=== PATIENT | male | born 1950 | race Caucasian/White ===

== ENCOUNTER → 2020-01-20 08:05 | Outpatient (BNVA) | payer MEDICARE, SELFPAY | PROVIDERS: PCP Internal Medicine; Visit Provider Internal Medicine | DX: I82.409 Acute embolism and thrombosis of unspecified deep veins of unspecified lower extremity (principal); Z51.81 Encounter for therapeutic drug level monitoring; Z79.01 Long term (current) use of anticoagulants | CPT/HCPCS: 85610; 99211 ==

== ENCOUNTER → 2020-02-17 08:04 | Outpatient (BNVA) | payer MEDICARE, SELFPAY | PROVIDERS: PCP Internal Medicine; Visit Provider Internal Medicine | DX: Z86.718 Personal history of other venous thrombosis and embolism (principal); Z51.81 Encounter for therapeutic drug level monitoring; Z79.01 Long term (current) use of anticoagulants | CPT/HCPCS: 85610; 99211 ==

== ENCOUNTER → 2020-03-16 08:05 | Outpatient (BNVA) | payer MEDICARE, SELFPAY | PROVIDERS: PCP Internal Medicine; Visit Provider Internal Medicine | DX: Z86.718 Personal history of other venous thrombosis and embolism (principal); Z51.81 Encounter for therapeutic drug level monitoring; Z79.01 Long term (current) use of anticoagulants | CPT/HCPCS: 85610; 99211 ==

== ENCOUNTER → 2020-04-13 08:11 | Outpatient (BNVA) | payer MEDICARE, SELFPAY | PROVIDERS: PCP Internal Medicine; Visit Provider Internal Medicine | DX: I82.509 Chronic embolism and thrombosis of unspecified deep veins of unspecified lower extremity (principal); Z51.81 Encounter for therapeutic drug level monitoring; Z79.01 Long term (current) use of anticoagulants | CPT/HCPCS: 85610; 99211 ==

== ENCOUNTER → 2020-05-12 08:13 | Outpatient (BNVA) | payer MEDICARE, SELFPAY | PROVIDERS: PCP Internal Medicine; Visit Provider Internal Medicine | DX: Z86.718 Personal history of other venous thrombosis and embolism (principal); Z51.81 Encounter for therapeutic drug level monitoring; Z79.01 Long term (current) use of anticoagulants | CPT/HCPCS: 85610; 99211 ==

== ENCOUNTER → 2020-06-08 08:00 | Outpatient (BNVA) | payer MEDICARE, SELFPAY | PROVIDERS: PCP Internal Medicine; Visit Provider Internal Medicine | DX: I82.509 Chronic embolism and thrombosis of unspecified deep veins of unspecified lower extremity (principal); Z51.81 Encounter for therapeutic drug level monitoring; Z79.01 Long term (current) use of anticoagulants | CPT/HCPCS: 85610; 99211 ==

== ENCOUNTER → 2020-06-30 08:04 | Outpatient (BNVA) | payer MEDICARE, SELFPAY | PROVIDERS: PCP Internal Medicine; Visit Provider Internal Medicine | DX: Z86.718 Personal history of other venous thrombosis and embolism (principal); Z51.81 Encounter for therapeutic drug level monitoring; Z79.01 Long term (current) use of anticoagulants | CPT/HCPCS: 85610; 99211 ==

== ENCOUNTER → 2020-07-22 15:27 | Outpatient (BNVA) | payer MEDICARE, SELFPAY | PROVIDERS: PCP Internal Medicine; Visit Provider Student in an Organized Health Care Education/Training Program | DX: M19.041 Primary osteoarthritis, right hand (principal); M19.042 Primary osteoarthritis, left hand; Z79.01 Long term (current) use of anticoagulants | CPT/HCPCS: 99212 ==

== ENCOUNTER → 2020-07-28 08:01 | Outpatient (BNVA) | payer MEDICARE, SELFPAY | PROVIDERS: PCP Internal Medicine; Visit Provider Internal Medicine | DX: Z86.718 Personal history of other venous thrombosis and embolism (principal); Z79.01 Long term (current) use of anticoagulants; Z51.81 Encounter for therapeutic drug level monitoring | CPT/HCPCS: 85610; 99211 ==

== ENCOUNTER → 2020-08-25 08:01 | Outpatient (BNVA) | payer MEDICARE, SELFPAY | PROVIDERS: PCP Internal Medicine; Visit Provider Internal Medicine | DX: Z86.718 Personal history of other venous thrombosis and embolism (principal); Z51.81 Encounter for therapeutic drug level monitoring; Z79.01 Long term (current) use of anticoagulants | CPT/HCPCS: 85610; 99211 ==

== ENCOUNTER 2020-09-22 08:03 | Outpatient (REF) | payer MEDICARE, SELFPAY ==
[2020-09-22 09:57] LABS: MANUAL DIFF FLAG NO
[2020-09-22 10:06] LABS: Basophils Percent Auto 0.4 % (0-2); Eosinophils Absolute Auto 0.2 X10*3/uL (0.0-0.4); Eosinophils Percent Auto 2.4 % (0-4); Hematocrit 42.2 % (42-52); Hemoglobin 13.3 g/dl (14.0-18.0); Imm Gran Abs Auto 0.04 X10*3/uL (0.00-0.03); Imm Gran Pct Auto 0.5 % (0.0-0.4); Lymphocytes Absolute Auto 1.1 X10*3/uL (1.2-4.9); Lymphocytes Percent Auto 15.1 % (20-40); Mean Corpuscular HGB Conc 31.5 g/dl (31.0-36.0); Mean Corpuscular Hemoglobin 29.5 pg (27.0-33.0); Mean Corpuscular Volume 93.6 fL (80-98); Mean Platelet Volume 10.3 fL (9.4-12.4); Monocytes Absolute Auto 0.9 X10*3/uL (0.1-1.2); Monocytes Percent Auto 12.4 % (2-11); Neutrophils Absolute Auto 5.2 X10*3/uL (2.0-8.3); Neutrophils Percent Auto 69.2 % (45-73); Platelet Count 197 X10*3/uL (160-400); Red Blood Count 4.51 X10*6/uL (4.60-5.80); Red Cell Distribution Width 14.6 % (11.0-16.0); White Blood Count 7.5 X10*3/uL (4.8-10.8)
[2020-09-22 10:37] LABS: Albumin Level 4.1 g/dL (3.5-5.0); Anion Gap 16 (12-20); Blood Urea Nitrogen 31 mg/dL (9-16); Calcium 9.2 mg/dL (8.4-10.2); Carbon Dioxide 20 mmol/L (22-29); Chloride 113 mmol/L (96-108); Estimated Glomerular Filt Rate 34; Phosphorus 2.7 mg/dL (2.7-4.5); Potassium 5.7 mmol/L (3.3-5.1); Sodium 143 mmol/L (135-145)
== END 2020-09-22 08:04 | disposition home or self-care (01) ==
LOC: HO.LAB 08:03
PROVIDERS: Absent Provider Internal Medicine; PCP Internal Medicine; Referring Provider Internal Medicine Hypertension Specialist; Visit Provider Internal Medicine
DX: I82.409 Acute embolism and thrombosis of unspecified deep veins of unspecified lower extremity (principal); N18.30 Chronic kidney disease, stage 3 unspecified; E21.3 Hyperparathyroidism, unspecified; Z51.81 Encounter for therapeutic drug level monitoring; Z79.01 Long term (current) use of anticoagulants
CPT/HCPCS: 36415; 80051; 82040; 82310; 82565; 83735; 84100; 84520; 85025; 85610; 99211

== ENCOUNTER → 2020-10-20 08:00 | Outpatient (BNVA) | payer MEDICARE, SELFPAY | PROVIDERS: PCP Internal Medicine; Visit Provider Internal Medicine | DX: Z86.718 Personal history of other venous thrombosis and embolism (principal); Z51.81 Encounter for therapeutic drug level monitoring; Z79.01 Long term (current) use of anticoagulants | CPT/HCPCS: 85610; 99211 ==

== ENCOUNTER → 2020-11-17 08:02 | Outpatient (BNVA) | payer MEDICARE, SELFPAY | PROVIDERS: PCP Internal Medicine; Visit Provider Internal Medicine | DX: Z86.718 Personal history of other venous thrombosis and embolism (principal); Z51.81 Encounter for therapeutic drug level monitoring; Z79.01 Long term (current) use of anticoagulants | CPT/HCPCS: 85610; 99211 ==

== ENCOUNTER → 2020-12-15 08:00 | Outpatient (BNVA) | payer MEDICARE, SELFPAY | PROVIDERS: PCP Internal Medicine; Visit Provider Internal Medicine | DX: Z86.718 Personal history of other venous thrombosis and embolism (principal); Z51.81 Encounter for therapeutic drug level monitoring; Z79.01 Long term (current) use of anticoagulants | CPT/HCPCS: 85610; 99211 ==

== ENCOUNTER → 2021-01-12 08:02 | Outpatient (BNVA) | payer MEDICARE, SELFPAY | PROVIDERS: PCP Internal Medicine; Visit Provider Internal Medicine | DX: Z86.718 Personal history of other venous thrombosis and embolism (principal); Z51.81 Encounter for therapeutic drug level monitoring; Z79.01 Long term (current) use of anticoagulants | CPT/HCPCS: 85610; 99211 ==

== ENCOUNTER 2021-02-09 06:45 | Outpatient (REF) | payer MEDICARE, SELFPAY ==
[2021-02-09 06:56] LABS: MANUAL DIFF FLAG NO
[2021-02-09 07:21] LABS: Basophils Percent Auto 0.4 % (0-2); Eosinophils Absolute Auto 0.2 X10*3/uL (0.0-0.4); Eosinophils Percent Auto 2.8 % (0-4); Hematocrit 41.1 % (42.0-52.0); Hemoglobin 12.8 g/dl (14.0-18.0); Imm Gran Abs Auto 0.02 X10*3/uL (0.00-0.03); Imm Gran Pct Auto 0.3 % (0.0-0.4); Immature Retic Fraction 6.4 % (2.3-13.4); Lymphocytes Absolute Auto 1.7 X10*3/uL (1.2-4.9); Mean Corpuscular HGB Conc 31.1 g/dl (31.0-36.0); Mean Corpuscular Hemoglobin 28.8 pg (27.0-33.0); Mean Corpuscular Volume 92.6 fL (80.0-98.0); Mean Platelet Volume 10.1 fL (9.4-12.4); Monocytes Absolute Auto 0.8 X10*3/uL (0.1-1.2); Monocytes Percent Auto 11.3 % (2-11); Neutrophils Absolute Auto 4.06 x10*3/uL (2.0-8.3); Neutrophils Percent Auto 60.2 % (45-73); Platelet Count 214 X10*3/uL (160-400); Red Blood Count 4.44 X10*6/uL (4.60-5.80); Retic HGB Equivalent 32.3 pg (30.0-35.0); Reticulocyte Percent 0.8 % (0.5-1.8); Reticulocytes Absolute 0.034 X10*6/uL (0.026-0.095); White Blood Count 6.8 X10*3/uL (4.8-10.8)
[2021-02-09 08:14] LABS: Alanine Aminotransferase 13 U/L (0-40); Alkaline Phosphatase 109 U/L (39-117); Anion Gap 14 (12-20); Aspartate Amino Transferase 18 U/L (5-37); Bilirubin Total 0.6 mg/dL (0.0-1.0); Blood Urea Nitrogen 34 mg/dL (9-16); Carbon Dioxide 22 mmol/L (22-29); Chloride 111 mmol/L (96-108); Cholesterol 178 mg/dL; Estimated Glomerular Filt Rate 31; Glucose Random 110 mg/dL (60-115); HDL Cholesterol 49 mg/dL; LDL Cholesterol Calculated 117 mg/dl; Sodium 142 mmol/L (135-145); Total Protein 7.4 g/dL (6.5-8.0); Triglycerides 63 mg/dL; Unsaturated Iron Binding 210 ug/dL; Uric Acid 10.6 mg/dL (3.4-7.0)
[2021-02-09 08:16] LABS: Estimated Average Glucose 111 mg/dL; Hemoglobin A1c % 5.5 %
[2021-02-09 08:27] LABS: Iron 68 mcg/dL (45-160); Percent Iron Saturation 24 % (15-50); Total Iron Binding Capacity 278 mcg/dL (228-428)
[2021-02-09 08:34] LABS: Prostate Specific Antigen Scr 1.32 ng/mL (<0.05-4.0)
[2021-02-09 08:55] LABS: Free T4 (Free Thyroxine) 1.19 ng/dL (0.71-1.85); Thyroid Stimulating Hormone 2.48 uIU/mL (0.32-4.0)
[2021-02-09 09:45] LABS: Folate 5.8 ng/mL (> or = 4.0); Vitamin B12 338 pg/mL (200-900)
[2021-02-09 09:57] LABS: Ferritin 299 ng/mL (20-250)
== END 2021-02-09 06:46 | disposition home or self-care (01) ==
LOC: HO.LAB 06:45
PROVIDERS: PCP Internal Medicine; Visit Provider Internal Medicine
DX: K22.70 Barrett's esophagus without dysplasia (principal); E87.5 Hyperkalemia; I12.9 Hypertensive chronic kidney disease with stage 1 through stage 4 chronic kidney disease, or unspecified chronic kidney disease; N18.32 Chronic kidney disease, stage 3b; E78.00 Pure hypercholesterolemia, unspecified; Z86.718 Personal history of other venous thrombosis and embolism; Z51.81 Encounter for therapeutic drug level monitoring; Z79.01 Long term (current) use of anticoagulants; Z12.5 Encounter for screening for malignant neoplasm of prostate
CPT/HCPCS: 36415; 80053; 80061; 82607; 82728; 82746; 83036; 83540; 84153; 84439; 84443; 84550; 85025; 85045; 85610; 99211

== ENCOUNTER → 2021-03-09 08:04 | Outpatient (BNVA) | payer MEDICARE, SELFPAY | PROVIDERS: PCP Internal Medicine; Visit Provider Internal Medicine | DX: Z86.718 Personal history of other venous thrombosis and embolism (principal); Z51.81 Encounter for therapeutic drug level monitoring; Z79.01 Long term (current) use of anticoagulants | CPT/HCPCS: 85610; 99211 ==

== ENCOUNTER → 2021-04-06 08:02 | Outpatient (BNVA) | payer MEDICARE, SELFPAY | PROVIDERS: PCP Internal Medicine; Visit Provider Internal Medicine | DX: I82.509 Chronic embolism and thrombosis of unspecified deep veins of unspecified lower extremity (principal); Z51.81 Encounter for therapeutic drug level monitoring; Z79.01 Long term (current) use of anticoagulants | CPT/HCPCS: 85610; 99211 ==

== ENCOUNTER → 2021-05-04 08:02 | Outpatient (BNVA) | payer MEDICARE, SELFPAY | PROVIDERS: PCP Internal Medicine; Visit Provider Internal Medicine | DX: Z86.718 Personal history of other venous thrombosis and embolism (principal); Z51.81 Encounter for therapeutic drug level monitoring; Z79.01 Long term (current) use of anticoagulants | CPT/HCPCS: 85610; 99211 ==

== ENCOUNTER → 2021-06-01 07:58 | Outpatient (BNVA) | payer MEDICARE, SELFPAY | PROVIDERS: PCP Internal Medicine; Visit Provider Internal Medicine | DX: Z86.718 Personal history of other venous thrombosis and embolism (principal); Z51.81 Encounter for therapeutic drug level monitoring; Z79.01 Long term (current) use of anticoagulants | CPT/HCPCS: 85610; 99211 ==

== ENCOUNTER 2021-06-29 08:03 | Outpatient (REF) | payer MEDICARE, SELFPAY ==
[2021-06-29 09:23] LABS: Hematocrit 40.5 % (42.0-52.0); Hemoglobin 12.5 g/dl (14.0-18.0); Mean Corpuscular HGB Conc 30.9 g/dl (31.0-36.0); Mean Corpuscular Hemoglobin 28.9 pg (27.0-33.0); Mean Corpuscular Volume 93.5 fL (80.0-98.0); Mean Platelet Volume 10.2 fL (9.4-12.4); Platelet Count 191 X10*3/uL (160-400); Red Blood Count 4.33 X10*6/uL (4.60-5.80); Red Cell Distribution Width 14.5 % (11.0-16.0); White Blood Count 6.2 X10*3/uL (4.8-10.8)
[2021-06-29 10:30] LABS: Anion Gap 14 (12-20); Blood Urea Nitrogen 33 mg/dL (9-16); Calcium 9.5 mg/dL (8.4-10.2); Carbon Dioxide 20 mmol/L (22-29); Chloride 109 mmol/L (96-108); Estimated Glomerular Filt Rate 32; Glucose Random 103 mg/dL (60-115); Potassium 5.3 mmol/L (3.3-5.1); Sodium 138 mmol/L (135-145)
[2021-06-29 12:16] LABS: Creatinine Urine 92.71 mg/dL; Protein/Creatinine Ratio, Ur 0.31 (<0.2); Total Protein Urine Random 29 mg/dL (<12)
[2021-06-30 15:45] LABS: Calcium (PTHI) 9.2 mg/dL (8.6-10.3); PTHI 187 pg/mL (16-77)
== END 2021-06-29 08:04 | disposition home or self-care (01) ==
LOC: HO.LAB 08:03
PROVIDERS: Absent Provider Internal Medicine Hypertension Specialist; PCP Internal Medicine; Visit Provider Internal Medicine
DX: I82.509 Chronic embolism and thrombosis of unspecified deep veins of unspecified lower extremity (principal); Z51.81 Encounter for therapeutic drug level monitoring; Z79.01 Long term (current) use of anticoagulants
CPT/HCPCS: 36415; 80048; 83970; 84156; 85027; 85610; 99211

== ENCOUNTER → 2021-07-27 08:00 | Outpatient (BNVA) | payer MEDICARE, SELFPAY | PROVIDERS: PCP Internal Medicine; Visit Provider Internal Medicine | DX: Z86.718 Personal history of other venous thrombosis and embolism (principal); Z79.01 Long term (current) use of anticoagulants; Z51.81 Encounter for therapeutic drug level monitoring | CPT/HCPCS: 85610; 99211 ==

== ENCOUNTER → 2021-08-24 08:02 | Outpatient (BNVA) | payer MEDICARE, SELFPAY | PROVIDERS: PCP Internal Medicine; Visit Provider Internal Medicine | DX: Z86.718 Personal history of other venous thrombosis and embolism (principal); Z79.01 Long term (current) use of anticoagulants; Z51.81 Encounter for therapeutic drug level monitoring | CPT/HCPCS: 85610; 99211 ==

== ENCOUNTER → 2021-09-01 12:28 | Outpatient (BNVA) | payer MEDICARE, SELFPAY | PROVIDERS: PCP Internal Medicine; Visit Provider Nurse Practitioner Family | DX: M19.041 Primary osteoarthritis, right hand (principal); M19.042 Primary osteoarthritis, left hand | CPT/HCPCS: 99212 ==

== ENCOUNTER → 2021-09-07 08:03 | Outpatient (BNVA) | payer MEDICARE, SELFPAY | PROVIDERS: PCP Internal Medicine; Visit Provider Internal Medicine | DX: Z86.718 Personal history of other venous thrombosis and embolism (principal); Z79.01 Long term (current) use of anticoagulants; Z51.81 Encounter for therapeutic drug level monitoring | CPT/HCPCS: 85610; 99211 ==

== ENCOUNTER → 2021-10-05 08:03 | Outpatient (BNVA) | payer MEDICARE, SELFPAY | PROVIDERS: PCP Internal Medicine; Visit Provider Internal Medicine | DX: Z86.718 Personal history of other venous thrombosis and embolism (principal); Z51.81 Encounter for therapeutic drug level monitoring; Z79.01 Long term (current) use of anticoagulants | CPT/HCPCS: 85610; 99211 ==

== ENCOUNTER → 2021-10-18 11:24 | Outpatient (BNVA) | payer MEDICARE, SELFPAY | PROVIDERS: PCP Internal Medicine; Visit Provider Nurse Practitioner Family | DX: M79.642 Pain in left hand (principal); M25.532 Pain in left wrist; M79.641 Pain in right hand; M25.521 Pain in right elbow; M25.522 Pain in left elbow; M25.531 Pain in right wrist | CPT/HCPCS: 99212 ==

== ENCOUNTER 2021-10-19 08:00 | Outpatient (REF) | payer MEDICARE, SELFPAY ==
--- NOTE | ~2021-10-19 | XR_ITS ---
EXAMINATION: XR ELBOW, LEFT CLINICAL INFORMATION: Pain. COMPARISON: None TECHNIQUE: AP, lateral, and oblique views of the left elbow. FINDINGS: Bony alignment and mineralization are normal. No fracture, dislocation or elbow joint effusion is seen. There is olecranon bursitis, and there are are small ovoid, calcified loose bodies noted within the olecranon bursa, suggesting synovial chondromatosis. There is no soft tissue gas or foreign body. There are atherosclerotic calcifications. XR/XR elbow LT 2V IMPRESSION: 1. No left elbow fracture, dislocation or joint effusion is seen. 2. 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
--- NOTE | ~2021-10-19 | XR_ITS ---
EXAMINATION: XR ELBOW, RIGHT CLINICAL INFORMATION: Pain. COMPARISON: None TECHNIQUE: AP, lateral, and oblique views of the right elbow. FINDINGS: The bones and soft tissues are normal. No fracture or joint effusion. Small enthesophytes are incidentally noted of the bilateral humeral epicondyles and the olecranon process. Alignment is anatomic. Joint spaces are maintained. XR/XR elbow RT 2V IMPRESSION: Unremarkable right elbow.
--- NOTE | ~2021-10-19 | XR_ITS ---
EXAMINATION: XR HAND AND WRIST, RIGHT CLINICAL INFORMATION: Chronic pain. COMPARISON: Radiographs dated 10/13/2019. TECHNIQUE: PA, lateral, and oblique views of the right hand and wrist are performed, together with a dedicated navicular view. FINDINGS: There is mild bony demineralization. There are multi-focal osteoarthritic changes of the second through fifth distal interphalangeal joints and of the second, fourth and fifth proximal interphalangeal joints. There are are degenerative changes of the first through third and fifth metacarpophalangeal joints. No fracture or dislocation is seen. There are curvilinear metallic foreign bodies again seen dorsolateral to the distal second metacarpal shaft. A tiny ovoid metallic foreign body is seen lateral to the second distal interphalangeal joint. No abnormal bone erosion or periosteal thickening is seen. The proximal and distal carpal rows are intact. There is moderate to severe osteoarthritic change of the right first carpometacarpal joint. There is narrowing of the radiocarpal joint. There is osteoarthritic change of the distal articulation of the radius and ulna. There are atherosclerotic calcifications. XR/XR hand wrist LT IMPRESSION: There are stable, moderately severe osteoarthritic changes of the right hand and wrist. These are again most severe of the third through fifth distal interphalangeal joints and of the fifth proximal interphalangeal joint, with possible bony ankylosis again noted. Overall, the appearance is relatively stable to prior. Radiopaque foreign bodies are again seen. EXAMINATION: XR HAND AND WRIST, LEFT CLINICAL INFORMATION: Chronic pain. COMPARISON: None TECHNIQUE: PA, lateral, and oblique views of the left hand and wrist are performed, together with a dedicated navicular view. FINDINGS: There is bony demineralization. There is mild osteoarthritic change of the interphalangeal joint of the thumb. There are multi-focal osteoarthritic changes of the second through fifth distal interphalangeal joints and of the second, third and fifth proximal interphalangeal joints. These changes are most pronounced of the second distal interphalangeal joint and of the fifth proximal and distal interphalangeal joints. There are variable degenerative changes of the second through fifth metacarpophalangeal joints. No fracture or dislocation is seen. There is no abnormal bone erosion or periosteal thickening. The proximal and distal carpal rows are intact. There is mild osteoarthritic change of the first carpometacarpal joint. There is degenerative change of the radiocarpal joint. There are atherosclerotic calcifications. IMPRESSION: There are stable, moderately severe osteoarthritic changes of the left hand and wrist. Again, these are most severe of the second and fifth digits. No fracture or dislocation is seen.
[2021-10-19 09:11] LABS: MANUAL DIFF FLAG NO
[2021-10-19 10:29] LABS: Basophils Percent Auto 0.7 % (0-2); Eosinophils Absolute Auto 0.1 X10*3/uL (0.0-0.4); Eosinophils Percent Auto 1.8 % (0-4); Hematocrit 37.3 % (42.0-52.0); Hemoglobin 11.9 g/dl (14.0-18.0); Imm Gran Abs Auto 0.02 X10*3/uL (0.00-0.03); Imm Gran Pct Auto 0.3 % (0.0-0.4); Lymphocytes Absolute Auto 1.4 X10*3/uL (1.2-4.9); Lymphocytes Percent Auto 23.8 % (20-40); Mean Corpuscular HGB Conc 31.9 g/dl (31.0-36.0); Mean Corpuscular Hemoglobin 28.7 pg (27.0-33.0); Mean Corpuscular Volume 89.9 fL (80.0-98.0); Mean Platelet Volume 10.2 fL (9.4-12.4); Monocytes Absolute Auto 0.7 X10*3/uL (0.1-1.2); Monocytes Percent Auto 11.4 % (2-11); Neutrophils Absolute Auto 3.8 x10*3/uL (2.0-8.3); Platelet Count 219 X10*3/uL (160-400); Red Blood Count 4.15 X10*6/uL (4.60-5.80); Red Cell Distribution Width 14.5 % (11.0-16.0); White Blood Count 6.1 X10*3/uL (4.8-10.8)
[2021-10-19 10:57] LABS: Estimated Average Glucose 114 mg/dL; Hemoglobin A1c % 5.6 %
[2021-10-19 11:06] LABS: Uric Acid 10.2 mg/dL (3.4-7.0)
[2021-10-19 11:15] LABS: Alanine Aminotransferase 11 U/L (0-40); Aspartate Amino Transferase 14 U/L (5-37); C Reactive Protein 0.92 mg/dL (< or = 0.50); Estimated Glomerular Filt Rate 27
[2021-10-19 11:25] LABS: Erythrocyte Sedimentation Rate 81 MM/HR (0-15)
[2021-10-19 11:35] LABS: Free T4 (Free Thyroxine) 1.02 ng/dL (0.71-1.85); Prostate Specific Antigen Scr 3.51 ng/mL (<0.05-4.0)
[2021-10-19 12:11] LABS: Folate 6.6 ng/mL (> or = 4.0); Vitamin B12 400 pg/mL (200-900)
== END 2021-10-19 08:01 | disposition home or self-care (01) ==
LOC: HO.XRAY 08:00
PROVIDERS: Absent Provider Nurse Practitioner Family; PCP Internal Medicine; Visit Provider Internal Medicine
DX: M25.521 Pain in right elbow (principal); M25.50 Pain in unspecified joint; M25.522 Pain in left elbow; M25.532 Pain in left wrist; E87.5 Hyperkalemia; Z79.899 Other long term (current) drug therapy; Z12.5 Encounter for screening for malignant neoplasm of prostate; Z86.718 Personal history of other venous thrombosis and embolism; Z51.81 Encounter for therapeutic drug level monitoring; Z79.01 Long term (current) use of anticoagulants
CPT/HCPCS: 36415; 73070; 73110; 73130; 82565; 82607; 82746; 83036; 84153; 84439; 84450; 84460; 84550; 85025; 85610; 85652; 86140; 99211

== ENCOUNTER → 2021-11-02 08:04 | Outpatient (BNVA) | payer MEDICARE, SELFPAY | PROVIDERS: PCP Internal Medicine; Visit Provider Internal Medicine | DX: Z86.718 Personal history of other venous thrombosis and embolism (principal); Z79.01 Long term (current) use of anticoagulants; Z51.81 Encounter for therapeutic drug level monitoring | CPT/HCPCS: 85610; 99211 ==

== ENCOUNTER → 2021-11-06 12:43 | Outpatient (BNVA) | payer MEDICARE, SELFPAY | PROVIDERS: PCP Internal Medicine; Visit Provider Nurse Practitioner Family | DX: M10.9 Gout, unspecified (principal); M25.532 Pain in left wrist | CPT/HCPCS: 99212 ==

== ENCOUNTER → 2021-11-30 08:01 | Outpatient (BNVA) | payer MEDICARE, SELFPAY | PROVIDERS: PCP Internal Medicine; Visit Provider Internal Medicine | DX: Z86.718 Personal history of other venous thrombosis and embolism (principal); Z79.01 Long term (current) use of anticoagulants; Z51.81 Encounter for therapeutic drug level monitoring | CPT/HCPCS: 85610; 99211 ==

== ENCOUNTER → 2021-12-14 08:01 | Outpatient (BNVA) | payer MEDICARE, SELFPAY | PROVIDERS: PCP Internal Medicine; Visit Provider Internal Medicine | DX: Z86.718 Personal history of other venous thrombosis and embolism (principal); Z51.81 Encounter for therapeutic drug level monitoring; Z79.01 Long term (current) use of anticoagulants | CPT/HCPCS: 85610; 99211 ==

== ENCOUNTER → 2021-12-28 08:02 | Outpatient (BNVA) | payer MEDICARE, SELFPAY | PROVIDERS: PCP Internal Medicine; Visit Provider Internal Medicine | DX: Z86.718 Personal history of other venous thrombosis and embolism (principal); Z79.01 Long term (current) use of anticoagulants; Z51.81 Encounter for therapeutic drug level monitoring | CPT/HCPCS: 85610; 99211 ==

== ENCOUNTER → 2022-01-03 08:16 | Outpatient (BNVA) | payer MEDICARE, SELFPAY | PROVIDERS: PCP Internal Medicine; Visit Provider Internal Medicine | DX: Z86.718 Personal history of other venous thrombosis and embolism (principal); Z79.01 Long term (current) use of anticoagulants; Z51.81 Encounter for therapeutic drug level monitoring | CPT/HCPCS: 85610; 99211 ==

== ENCOUNTER 2022-01-08 07:24 | Day surgery (SDC) | payer MEDICARE, SELFPAY ==
[2022-01-03 09:09] VITALS: BMI 30.1
--- NOTE | 2022-01-05 13:06 | P.CONAN_ITS ---
Documented by User: Latisha Kilgore NP 01/05/22 13:18 HPI - Anesthesia Eval Consult details Narrative: 71yo M for Upper Endoscopy and Colonoscopy CKD stage 3 - per 10/2021 renal note, CKD d/t htn, reat increased to 2.8 likely d/t natural progression Coumadin for hx DVT PMFSH Active Problems Active Problems: All Active Problems (Updated 11/06/21 @ 23:32 by Emma Mckeon NP) DVT (deep venous thrombosis) (Acute) Current use of anticoagulant therapy (Acute) Peripheral vascular disease (Acute) Hyperkalemia (Acute) Colon cancer screening (Acute) Annual physical exam (Acute) Osteoarthritis, hand (Acute) Gout (Acute) Anticardiolipin antibody positive (Acute) Tobacco abuse (Acute) GERD (gastroesophageal reflux disease) (Acute) Obesity (BMI 30-39.9) (Acute) Chronic kidney disease (CKD) stage G3b/A1, moderately decreased glomerular filtration rate (GFR) between 30-44 mL/min/1.73 square meter and albuminuria creatinine ratio less than 30 mg/g (Acute) Barretts esophagus (Acute) HTN (hypertension) (Acute) Osteoarthritis (Acute) Past Medical History Medical History (Updated 11/06/21 @ 23:32 by Emma Mckeon NP) Anticardiolipin antibody positive Anxiety Barretts esophagus Cholelithiasis Chronic kidney disease (CKD) stage G3b/A1, moderately decreased glomerular filtration rate (GFR) between 30-44 mL/min/1.73 square meter and albuminuria creatinine ratio less than 30 mg/g GERD (gastroesophageal reflux disease) Gout HTN (hypertension) Mass of hand Obesity (BMI 30-39.9) Osteoarthritis Renal stones Skin cancer Tobacco abuse Family History Family History Mother Breast cancer Arthritis Father No problems noted. Surgical History Surgical History (Updated 01/03/22 @ 09:01 by Luisa Leo RN) H/O cystoscopy H/O excision of ganglion cyst History of esophagogastroduodenoscopy (EGD) History of tumor Hx of tonsillectomy Social History Social History Housing: Apartment Alcohol intake: never Patient Tobacco Use Status: Current everyday Tobacco user Tobacco use type: Cigarette Cigarettes Per Day: 11 Years Smoked: 40 e-Cigarette/Vaping Use: Never Used Second Hand Smoke Exposure: No Advance Directives: No Advance Directives Information Provided: Yes Current occupational status: retired Cognitive needs: No Hearing needs: No Vision needs: No Meds Allergies Allergy/AdvReac Type Severity Reaction Status Date / Time lisinopril Allergy Intermediate hyperkalemia Verified 01/03/22 09:05 / elevated creatinine Penicillins [PENICILLINS] Allergy Intermediate SWELLING Verified 01/03/22 08:26 Home Medications Medication Instructions Recorded Confirmed Last Taken Type ferrous sulfate 325 mg (65 mg 325 mg PO DAILY 03/22/20 01/03/22 Unknown History iron) tablet (Feosol) ketoconazole 2 % shampoo topical 08/24/21 12/28/21 Unknown History triamcinolone acetonide 0.1 % topical PRN 11/06/21 12/28/21 Unknown History topical ointment Exam Exam Date and Time: January 05, 2022 1306 Height,Weight and Vital Signs: Height 5 ft 7.25 in Weight 87.997 kg Pertinent Lab Results Pertinent Lab Results: Laboratory Tests 10/19/21 09:09 WBC 6.1 Hgb 11.9 L Hct 37.3 L Plt Count 219 Assessment and Plan Assessment Anesthesia Assessment: Chart Reviewed Documented by User: Yasmany Mcknight MD 01/08/22 07:40 [facility] Past Medical History Medical History (Updated 11/06/21 @ 23:32 by Emma Mckeon NP) Anticardiolipin antibody positive Anxiety Barretts esophagus Cholelithiasis Chronic kidney disease (CKD) stage G3b/A1, moderately decreased glomerular filtration rate (GFR) between 30-44 mL/min/1.73 square meter and albuminuria creatinine ratio less than 30 mg/g GERD (gastroesophageal reflux disease) Gout HTN (hypertension) Mass of hand Obesity (BMI 30-39.9) Osteoarthritis Renal stones Skin cancer Tobacco abuse Family History Family History Mother Breast cancer Arthritis Father No problems noted. Family history of problems with anesthesia: No Surgical History Surgical History (Updated 01/03/22 @ 09:01 by Luisa Leo RN) H/O cystoscopy H/O excision of ganglion cyst History of esophagogastroduodenoscopy (EGD) History of tumor Hx of tonsillectomy History of Problems with Anesthesia: No Social History Social History Housing: Apartment Alcohol intake: never Patient Tobacco Use Status: Current everyday Tobacco user Tobacco use type: Cigarette Cigarettes Per Day: 11 Years Smoked: 40 e-Cigarette/Vaping Use: Never Used Second Hand Smoke Exposure: No Advance Directives: No Advance Directives Information Provided: Yes Current occupational status: retired Cognitive needs: No Hearing needs: No Vision needs: No Meds Allergies Allergy/AdvReac Type Severity Reaction Status Date / Time lisinopril Allergy Intermediate hyperkalemia Verified 01/03/22 09:05 / elevated creatinine Penicillins [PENICILLINS] Allergy Intermediate SWELLING Verified 01/03/22 08:26 Home Medications Medication Instructions Recorded Confirmed Last Taken Type ferrous sulfate 325 mg (65 mg 325 mg PO DAILY 03/22/20 01/03/22 Unknown History iron) tablet (Feosol) ketoconazole 2 % shampoo topical 08/24/21 12/28/21 Unknown History triamcinolone acetonide 0.1 % topical PRN 11/06/21 12/28/21 Unknown History topical ointment Exam Airway Mallampati Class: III TM Dist: >3cm Neck ROM: Full Denture: Upper Assessment and Plan Assessment Anesthesia Assessment: Anesthesia Plan Discussed Final Anesthetic Review Family History of Problems with Anesthesia: No History of Problems with Anesthesia: No NPO: Yes ASA Class: III Final Preanesthetic Review: No Changes in Pt Med Stat, Meds/Allgs Chart Reviewed , Consent Obtained/Reviewed and Anes Risks/Benef Reviewed Patient Risk: Intermediate Procedure Risk: Low Anesthetic Plan Anesthetic Plan: MAC: Disposition: Standard PACU
[2022-01-08 07:47] VITALS: BP 108/72; PULSE 74; RESP 16; TEMP 36.8; O2SAT 97; BMI 29.9
[2022-01-08 08:12] LABS: INTERNATIONAL NORM RATIO 1.5 (0.9-1.1); Prothrombin Time 17.4 SEC (10.0-13.1)
[2022-01-08 09:44] VITALS: BP 123/50; PULSE 66; RESP 16; TEMP 37.1; O2SAT 95
--- NOTE | 2022-01-08 09:47 | P.BOP_ITS ---
Brief Operative Note Date of Service: 01/08/22 Pre-op diagnosis: GERD, Screening Post-op diagnosis: other (Reflux esophagitis, Hiatal hernia, Gastritis, Diverticulosis) Procedure: EGD/Colonoscopy Surgeon: Jesus Armstrong Anesthesia: MAC Was an Back End Developer used for this Procedure?: No Estimated blood loss (mL): 0 Pathology: none sent Condition: stable Disposition: PACU
[2022-01-08 09:59] VITALS: BP 114/63; PULSE 70; RESP 16; TEMP 37.1; O2SAT 96
--- NOTE | 2022-01-08 10:30 | OP_ITS ---
SURGEON: Jesus Armstrong MD INDICATIONS: The patient presents for evaluation of gastroesophageal reflux, Lee's esophagus, and colorectal cancer screening. Full consent has been obtained from him for this, including risks of bleeding and perforation. PREOPERATIVE DIAGNOSIS: POSTOPERATIVE DIAGNOSIS: PROCEDURE PERFORMED: Esophagogastroduodenoscopy and colonoscopy to the cecum. ESTIMATED BLOOD LOSS: COMPLICATIONS: ANESTHESIA: Monitored anesthesia care. ASSISTANTS: SPECIMENS: PREOPERATIVE DIAGNOSES: Gastroesophageal reflux, history of Lee's esophagus, and colorectal cancer screening. POSTOPERATIVE DIAGNOSES: Gastroesophageal reflux, history of Lee's esophagus, and colorectal cancer screening, hiatal hernia, esophagitis, gastritis, diverticulosis, and internal hemorrhoids. DESCRIPTION OF PROCEDURE: The patient was placed in the left lateral decubitus position. The Olympus video gastroscope was passed in the posterior oropharynx and upper esophagus under direct vision. The scope was passed slowly to the distal esophagus. The gastroesophageal junction appeared at 35 cm. There was evidence of some very minimal irregularity and 2 less than 1 cm erosions. There was no sign of any mass, ulceration, nor any definitive evidence of Lee's mucosa. The scope entered into the stomach. There was a moderate-sized hiatal hernia. The scope was advanced to the pylorus, and the duodenum was cannulated at the descending portion. The duodenum including the bulb appeared normal other than changes of duodenitis in the duodenal bulb. The scope was withdrawn back in the stomach. The gastric antrum also had changes of some gastritis with edema and some friability. There were no erosions or ulceration. There was good peristalsis. The scope was retroflexed visualizing the proximal stomach carefully, which appeared normal, without any sign of mass or ulceration. The scope was straightened and withdrawn back to the esophagus. Biopsies were not obtained given that his INR was 1.5 even though he stopped Coumadin 5 days ago. There were no significant changes of Lee's esophagus, nor any suspicious lesions. Proximal to this, the esophageal mucosa appeared normal. The scope was withdrawn from patient. He was turned around for the colonoscopy. The digital rectal exam revealed no abnormalities. The Olympus video pediatric colonoscope was entered into the rectum and advanced easily to the cecum. Once in the cecum, I did identify normal-appearing cecal pouch with appendiceal orifice and a normal-appearing ileocecal valve. The entire cecum and ileocecal valve appeared normal. The scope was then slowly withdrawn assessing all mucosal surfaces carefully. Preparation was excellent. I did not visualize any sign of polyps, colitis, or angiodysplasia. There was a mild amount of sigmoid diverticulosis. In the rectum, scope was retroflexed visualizing internal hemorrhoids, but no other pathology. The rectal mucosa appeared normal. The scope was straightened and withdrawn from the patient. He tolerated the procedure well and was returned to the recovery area in stable condition. IMPRESSION: 1. Esophagitis. 2. Hiatal hernia. 3. Gastritis. 4. Duodenitis. 5. Diverticulosis. 6. Internal hemorrhoids. PLAN: Given these upper endoscopy findings, I am going to switch him from his famotidine to omeprazole 20 mg daily. He was advised to resume his iron. He was advised to resume his Coumadin at the normal dose given his INR of 1.5 today. He will not need any further Lovenox. Given today's findings, I do not think, he would need any further colonoscopies for screening nor any further upper endoscopies. He will see me on a p.r.n. basis. This has been discussed with his . MD ALBERTA Solares/COLT / [id number] MTDD
== END 2022-01-08 10:30 | disposition home or self-care (01) ==
PROVIDERS: PCP Internal Medicine; Visit Provider Internal Medicine
PROC: (CPT 43235; principal; 2022-01-08 08:30)
DX: Z12.11 Encounter for screening for malignant neoplasm of colon (principal); K57.30 Diverticulosis of large intestine without perforation or abscess without bleeding; K64.8 Other hemorrhoids; K21.9 Gastro-esophageal reflux disease without esophagitis; K20.80 Other esophagitis without bleeding; K29.50 Unspecified chronic gastritis without bleeding; K29.80 Duodenitis without bleeding; K22.70 Barrett's esophagus without dysplasia; K44.9 Diaphragmatic hernia without obstruction or gangrene; I10 Essential (primary) hypertension; I82.409 Acute embolism and thrombosis of unspecified deep veins of unspecified lower extremity; M10.9 Gout, unspecified; Z79.01 Long term (current) use of anticoagulants; Z79.899 Other long term (current) drug therapy; Z88.0 Allergy status to penicillin; Z88.8 Allergy status to other drugs, medicaments and biological substances; F17.210 Nicotine dependence, cigarettes, uncomplicated; Z98.890 Other specified postprocedural states
CPT/HCPCS: 43235; G0121; 36415; 85610; J2250; J2370

== ENCOUNTER → 2022-01-10 08:17 | Outpatient (BNVA) | payer MEDICARE, SELFPAY | PROVIDERS: PCP Internal Medicine; Visit Provider Internal Medicine | DX: Z86.718 Personal history of other venous thrombosis and embolism (principal); Z79.01 Long term (current) use of anticoagulants; Z51.81 Encounter for therapeutic drug level monitoring | CPT/HCPCS: 85610; 99211 ==

== ENCOUNTER → 2022-01-17 08:02 | Outpatient (BNVA) | payer MEDICARE, SELFPAY | PROVIDERS: PCP Internal Medicine; Visit Provider Internal Medicine | DX: Z86.718 Personal history of other venous thrombosis and embolism (principal); Z79.01 Long term (current) use of anticoagulants; Z51.81 Encounter for therapeutic drug level monitoring | CPT/HCPCS: 85610; 99211 ==

== ENCOUNTER → 2022-02-14 08:03 | Outpatient (BNVA) | payer MEDICARE, SELFPAY | PROVIDERS: PCP Internal Medicine; Visit Provider Internal Medicine | DX: Z86.718 Personal history of other venous thrombosis and embolism (principal); Z79.01 Long term (current) use of anticoagulants; Z51.81 Encounter for therapeutic drug level monitoring | CPT/HCPCS: 85610; 99211 ==

== ENCOUNTER 2022-02-27 09:01 | Outpatient (REF) | payer MEDICARE, SELFPAY ==
--- NOTE | ~2022-02-27 | US_ITS ---
EXAMINATION: US RETROPERITONEAL LIMITED (RENAL ONLY) CLINICAL INFORMATION: Hypertensive chronic kidney disease. COMPARISON: Renal ultrasound 11/02/2019 and 09/10/2018. MRI abdomen 10/05/2015. X-ray abdomen KUB 09/29/2015. TECHNIQUE: Real-time imaging of the kidneys. FINDINGS: RIGHT KIDNEY: 8.9 x 5.3 x 5.3 cm (SAG x AP x TRV). The kidney is normal in size, contour, and echogenicity. Renal cortical thickness is normal. No renal calculi or hydronephrosis. There is anechoic cyst midpole measuring 0.9 x 0.7 x 0.9 cm and lower pole measuring 0.8 x 0.6 x 0.7 cm. LEFT KIDNEY: 6.2 x 3.8 x 3.7 cm (SAG x AP x TRV). The kidney is small in size, contour, and echogenicity. Renal cortical thickness is normal. No renal calculi or hydronephrosis. There is anechoic cyst in the upper pole measuring 1.3 x 0.9 x 1.4 cm in midpole measuring 0.6 x 0.5 x 0.7 cm. US/US renal BI IMPRESSION: Bilateral renal cysts. Small sized left kidney. No major change from 11/02/2019
== END 2022-02-27 09:02 | disposition home or self-care (01) ==
LOC: HO.US 09:01
PROVIDERS: Visit Provider Internal Medicine Hypertension Specialist
DX: I12.9 Hypertensive chronic kidney disease with stage 1 through stage 4 chronic kidney disease, or unspecified chronic kidney disease (principal); N18.32 Chronic kidney disease, stage 3b
CPT/HCPCS: 76775

== ENCOUNTER 2022-03-13 13:49 | Outpatient (REF) | payer MEDICARE, SELFPAY ==
[2022-03-13 14:09] LABS: MANUAL DIFF FLAG NO
[2022-03-13 15:44] LABS: Basophils Percent Auto 0.4 % (0-2); Eosinophils Absolute Auto 0.1 X10*3/uL (0.0-0.4); Hematocrit 39.3 % (42.0-52.0); Hemoglobin 12.4 g/dl (14.0-18.0); Imm Gran Abs Auto 0.02 X10*3/uL (0.00-0.03); Imm Gran Pct Auto 0.3 % (0.0-0.4); Immature Retic Fraction 6.6 % (2.3-13.4); Lymphocytes Absolute Auto 1.3 X10*3/uL (1.2-4.9); Lymphocytes Percent Auto 18.3 % (20-40); Mean Corpuscular HGB Conc 31.6 g/dl (31.0-36.0); Mean Platelet Volume 10.8 fL (9.4-12.4); Monocytes Absolute Auto 0.6 X10*3/uL (0.1-1.2); Platelet Count 199 X10*3/uL (160-400); Red Blood Count 4.27 X10*6/uL (4.60-5.80); Red Cell Distribution Width 14.5 % (11.0-16.0); Retic HGB Equivalent 34.2 pg (30.0-35.0); Reticulocyte Percent 0.7 % (0.5-1.8); Reticulocytes Absolute 0.032 X10*6/uL (0.026-0.095)
[2022-03-13 16:20] LABS: Appearance Urine Clear; Color Urine Yellow; Glucose Urine UA Negative (Negative); Leukocyte Esterase Urine Negative (Negative); Nitrite Urine Negative (Negative); PH 5.5 (5.0-9.0); UMIC TRIGGER UA YES; Urine Blood Small (1+) (Negative); Urine Ketones Negative (Negative); Urine Protein 30 (1+) mg/dL (Neg-Trace)
[2022-03-13 16:26] LABS: Creatinine Urine 128.84 mg/dL; Protein/Creatinine Ratio, Ur 0.29 (<0.2); Total Protein Urine Random 37 mg/dL (<12)
[2022-03-13 16:40] LABS: Bacteria Urine None Seen (None Seen); Granular Casts Urine Present; Hyaline Casts Urine 0-2 /LPF (0-2); Squamous Epithelial Cell Urine 0-2 /HPF (0-2); WBC Urine 0-5 /HPF (0-5)
[2022-03-13 16:55] LABS: Alanine Aminotransferase 11 U/L (0-40); Albumin Level 3.9 g/dL (3.5-5.0); Alkaline Phosphatase 118 U/L (39-117); Anion Gap 13 (12-20); Aspartate Amino Transferase 17 U/L (5-37); Bilirubin Total 0.6 mg/dL (0.0-1.0); Blood Urea Nitrogen 37 mg/dL (9-16); Calcium 9.3 mg/dL (8.4-10.2); Carbon Dioxide 20 mmol/L (22-29); Chloride 116 mmol/L (96-108); Estimated Glomerular Filt Rate 39; Ferritin 216 ng/mL (20-250); Glucose Random 98 mg/dL (60-115); Iron 61 mcg/dL (45-160); Percent Iron Saturation 25 % (15-50); Potassium 5.1 mmol/L (3.3-5.1); Sodium 144 mmol/L (135-145); Thyroid Stimulating Hormone 1.32 uIU/mL (0.32-4.0); Total Iron Binding Capacity 245 mcg/dL (228-428); Unsaturated Iron Binding 184 ug/dL; Uric Acid 8.7 mg/dL (3.4-7.0)
[2022-03-13 17:12] LABS: Folate 5.4 ng/mL (> or = 4.0); Vitamin B12 312 pg/mL (200-900)
[2022-03-16 22:49] LABS: Prot Elec - Albumin 3.8 g/dL (3.8-4.8); Prot Elec - Alpha1 0.4 g/dL (0.2-0.3); Prot Elec - Alpha2 0.8 g/dL (0.5-0.9); Prot Elec - Beta 1 0.4 g/dL (0.4-0.6); Prot Elec - Beta 2 0.4 g/dL (0.2-0.5); Prot Elec - Gamma 1.2 g/dL (0.8-1.7)
== END 2022-03-13 13:50 | disposition home or self-care (01) ==
LOC: HO.LAB 13:49
PROVIDERS: Absent Provider Internal Medicine Hypertension Specialist; PCP Internal Medicine; Visit Provider Internal Medicine
DX: M10.9 Gout, unspecified (principal); M25.50 Pain in unspecified joint; I12.9 Hypertensive chronic kidney disease with stage 1 through stage 4 chronic kidney disease, or unspecified chronic kidney disease; N18.32 Chronic kidney disease, stage 3b; R79.89 Other specified abnormal findings of blood chemistry; K21.9 Gastro-esophageal reflux disease without esophagitis; Z79.899 Other long term (current) drug therapy
CPT/HCPCS: 36415; 80048; 80053; 81001; 81003; 82565; 82607; 82728; 82746; 83540; 84156; 84165; 84439; 84443; 84550; 85025; 85027; 85045; 99212

== ENCOUNTER → 2022-03-14 08:02 | Outpatient (BNVA) | payer MEDICARE, SELFPAY | PROVIDERS: PCP Internal Medicine; Visit Provider Internal Medicine | DX: Z86.718 Personal history of other venous thrombosis and embolism (principal); Z79.01 Long term (current) use of anticoagulants; Z51.81 Encounter for therapeutic drug level monitoring | CPT/HCPCS: 85610; 99211 ==

== ENCOUNTER → 2022-04-12 08:09 | Outpatient (BNVA) | payer MEDICARE, SELFPAY | PROVIDERS: PCP Internal Medicine; Visit Provider Internal Medicine | DX: Z86.718 Personal history of other venous thrombosis and embolism (principal); Z79.01 Long term (current) use of anticoagulants; Z51.81 Encounter for therapeutic drug level monitoring | CPT/HCPCS: 85610; 99211 ==

== ENCOUNTER 2022-05-10 08:02 | Outpatient (REF) | payer MEDICARE, SELFPAY ==
[2022-05-10 10:10] LABS: Alanine Aminotransferase 8 U/L (0-40); Aspartate Amino Transferase 14 U/L (5-37); Blood Urea Nitrogen 35 mg/dL (9-16); Estimated Glomerular Filt Rate 36
== END 2022-05-10 08:03 | disposition home or self-care (01) ==
LOC: HO.LAB 08:02
PROVIDERS: Absent Provider Nurse Practitioner Family; PCP Internal Medicine; Visit Provider Internal Medicine
DX: Z86.718 Personal history of other venous thrombosis and embolism (principal); M10.9 Gout, unspecified; Z51.81 Encounter for therapeutic drug level monitoring; Z79.01 Long term (current) use of anticoagulants
CPT/HCPCS: 36415; 82565; 84450; 84460; 84520; 84550; 85610; 99211

== ENCOUNTER → 2022-05-17 10:57 | Outpatient (BNVA) | payer MEDICARE, SELFPAY | PROVIDERS: PCP Internal Medicine; Visit Provider Nurse Practitioner Family | DX: M10.9 Gout, unspecified (principal) | CPT/HCPCS: 99212 ==

== ENCOUNTER → 2022-06-07 08:03 | Outpatient (BNVA) | payer MEDICARE, SELFPAY | PROVIDERS: PCP Internal Medicine; Visit Provider Internal Medicine | DX: Z86.718 Personal history of other venous thrombosis and embolism (principal); Z79.01 Long term (current) use of anticoagulants; Z51.81 Encounter for therapeutic drug level monitoring | CPT/HCPCS: 85610; 99211 ==

== ENCOUNTER → 2022-07-05 08:14 | Outpatient (BNVA) | payer MEDICARE, SELFPAY | PROVIDERS: PCP Internal Medicine; Visit Provider Internal Medicine | DX: Z86.718 Personal history of other venous thrombosis and embolism (principal); Z79.01 Long term (current) use of anticoagulants; Z51.81 Encounter for therapeutic drug level monitoring | CPT/HCPCS: 85610; 99211 ==

== ENCOUNTER 2022-08-02 07:17 | Outpatient (REF) | payer MEDICARE, SELFPAY ==
[2022-08-02 08:07] LABS: Alanine Aminotransferase 9 U/L (0-40); Albumin Level 3.9 g/dL (3.5-5.0); Alkaline Phosphatase 143 U/L (39-117); Anion Gap 18 (12-20); Aspartate Amino Transferase 15 U/L (5-37); Bilirubin Total 0.6 mg/dL (0.0-1.0); Blood Urea Nitrogen 51 mg/dL (9-16); Calcium 9.2 mg/dL (8.4-10.2); Carbon Dioxide 13 mmol/L (22-29); Chloride 117 mmol/L (96-108); Estimated Glomerular Filt Rate 26; Glucose Random 117 mg/dL (60-115); Potassium 5.9 mmol/L (3.3-5.1); Sodium 142 mmol/L (135-145); Total Protein 7.4 g/dL (6.5-8.0)
[2022-08-02 08:14] LABS: Uric Acid 8.8 mg/dL (3.4-7.0)
== END 2022-08-02 07:18 | disposition home or self-care (01) ==
LOC: HO.LAB 07:17
PROVIDERS: Nurse Practitioner Family; PCP Internal Medicine; Visit Provider Internal Medicine
DX: Z86.718 Personal history of other venous thrombosis and embolism (principal); M10.9 Gout, unspecified; Z51.81 Encounter for therapeutic drug level monitoring; Z79.01 Long term (current) use of anticoagulants
CPT/HCPCS: 36415; 80053; 84550; 85610; 99211

== ENCOUNTER 2022-08-07 07:38 | Outpatient (REF) | payer MEDICARE, SELFPAY ==
[2022-08-07 07:53] LABS: MANUAL DIFF FLAG NO
[2022-08-07 08:04] LABS: Basophils Absolute Auto 0.1 X10*3/uL (0.0-0.2); Basophils Percent Auto 0.8 % (0-2); Eosinophils Absolute Auto 0.2 X10*3/uL (0.0-0.4); Eosinophils Percent Auto 3.1 % (0-4); Hematocrit 37.9 % (42.0-52.0); Hemoglobin 11.9 g/dl (14.0-18.0); Imm Gran Abs Auto 0.01 X10*3/uL (0.00-0.03); Imm Gran Pct Auto 0.2 % (0.0-0.4); Lymphocytes Percent Auto 33.4 % (20-40); Mean Corpuscular HGB Conc 31.4 g/dl (31.0-36.0); Mean Corpuscular Hemoglobin 29.5 pg (27.0-33.0); Mean Corpuscular Volume 93.8 fL (80.0-98.0); Mean Platelet Volume 10.2 fL (9.4-12.4); Monocytes Absolute Auto 0.6 X10*3/uL (0.1-1.2); Monocytes Percent Auto 10.3 % (2-11); Neutrophils Absolute Auto 3.1 x10*3/uL (2.0-8.3); Neutrophils Percent Auto 52.2 % (45-73); Platelet Count 197 X10*3/uL (160-400); Red Blood Count 4.04 X10*6/uL (4.60-5.80); Red Cell Distribution Width 15.4 % (11.0-16.0); White Blood Count 5.9 X10*3/uL (4.8-10.8)
[2022-08-07 09:04] LABS: Alanine Aminotransferase 9 U/L (0-40); Aspartate Amino Transferase 15 U/L (5-37); Blood Urea Nitrogen 42 mg/dL (9-16)
[2022-08-07 09:32] LABS: Alanine Aminotransferase 11 U/L (0-40); Albumin Level 3.8 g/dL (3.5-5.0); Alkaline Phosphatase 141 U/L (39-117); Anion Gap 15 (12-20); Aspartate Amino Transferase 16 U/L (5-37); Bilirubin Total 0.5 mg/dL (0.0-1.0); Blood Urea Nitrogen 43 mg/dL (9-16); Carbon Dioxide 11 mmol/L (22-29); Chloride 120 mmol/L (96-108); Estimated Glomerular Filt Rate 29; Glucose Random 102 mg/dL (60-115); Iron 76 mcg/dL (45-160); Percent Iron Saturation 34 % (15-50); Potassium 5.2 mmol/L (3.3-5.1); Sodium 141 mmol/L (135-145); Total Iron Binding Capacity 221 mcg/dL (228-428); Total Protein 7.1 g/dL (6.5-8.0); Unsaturated Iron Binding 145 ug/dL
[2022-08-07 09:53] LABS: Ferritin 385 ng/mL (20-250); Thyroid Stimulating Hormone 3.86 uIU/mL (0.32-4.0)
== END 2022-08-07 07:39 | disposition home or self-care (01) ==
LOC: HO.LAB 07:38
PROVIDERS: Nurse Practitioner Family; PCP Internal Medicine; Visit Provider Internal Medicine
DX: N18.32 Chronic kidney disease, stage 3b (principal); M10.9 Gout, unspecified; I10 Essential (primary) hypertension; E66.9 Obesity, unspecified
CPT/HCPCS: 36415; 80053; 82728; 83540; 84443; 84450; 84460; 84520; 85025

== ENCOUNTER 2022-08-24 07:02 | Outpatient (REF) | payer MEDICARE, SELFPAY ==
[2022-08-24 08:24] LABS: Estimated Glomerular Filt Rate 29
[2022-08-24 08:30] LABS: Appearance Urine Clear; Color Urine Yellow; Glucose Urine UA Negative (Negative); Leukocyte Esterase Urine Negative (Negative); Nitrite Urine Negative (Negative); PH 5.5 (5.0-9.0); Specific Gravity - Urine 1.015 (1.005-1.025); UMIC TRIGGER UA YES; Urine Blood Trace (Negative); Urine Ketones Negative (Negative); Urine Protein 30 (1+) mg/dL (Neg-Trace)
[2022-08-24 08:54] LABS: Bacteria Urine None Seen (None Seen); Hyaline Casts Urine 0-2 /LPF (0-2); Squamous Epithelial Cell Urine 0-2 /HPF (0-2); WBC Urine 0-5 /HPF (0-5)
== END 2022-08-24 07:03 | disposition home or self-care (01) ==
LOC: HO.LAB 07:02
PROVIDERS: PCP Internal Medicine; Visit Provider Nurse Practitioner Family
DX: N18.32 Chronic kidney disease, stage 3b (principal); M10.9 Gout, unspecified
CPT/HCPCS: 36415; 81001; 82565

== ENCOUNTER → 2022-08-30 08:02 | Outpatient (BNVA) | payer MEDICARE, SELFPAY | PROVIDERS: PCP Internal Medicine; Visit Provider Internal Medicine | DX: Z86.718 Personal history of other venous thrombosis and embolism (principal); Z79.01 Long term (current) use of anticoagulants; Z51.81 Encounter for therapeutic drug level monitoring | CPT/HCPCS: 85610; 99211 ==

== ENCOUNTER 2022-09-20 16:14 | Outpatient (REF) | payer MEDICARE, SELFPAY ==
--- NOTE | ~2022-09-20 | XR_ITS ---
EXAMINATION: XR ANKLE, LEFT CLINICAL INFORMATION: Pain in left ankle and joints of left foot. COMPARISON: None available. TECHNIQUE: AP, lateral, and mortise views of the left ankle. XR/XR ankle LT min 3V FINDINGS/IMPRESSION: There is no acute radiographic finding. There are degenerative changes of the midfoot and tarsal-metatarsal articulations, incompletely evaluated on this plain film of the ankle. No fracture or dislocation involving infiltrate is seen. The ankle joint space appears maintained. No lytic or sclerotic bony lesion is seen. No ankle joint effusion is noted. Plantar and Achilles calcaneal spurs. Small vessel arterial calcification suggests diabetic and/or renal calcific atherosclerosis.
--- NOTE | ~2022-09-20 | XR_ITS ---
EXAMINATION: XR HIP, LEFT CLINICAL INFORMATION: Left hip pain. COMPARISON: None available. TECHNIQUE: AP upright, AP supine, and frog-leg lateral views of the left hip. XR/XR hip LT w PEL1V FINDINGS/IMPRESSION: Overlying soft tissue limits the study. No acute fracture or dislocation is seen. The joint spaces appear maintained. There is a question of subtle bilateral subchondral lucencies of the femoral heads versus overlying soft tissue. Cannot entirely confirm or exclude early avascular necrosis, equivocal. If further imaging is clinically desired, MRI may be of use. There may be mild degenerative changes of the lower lumbar spine. The soft tissues appear unremarkable.
== END 2022-09-20 16:15 | disposition home or self-care (01) ==
LOC: HO.XRAY 16:14
PROVIDERS: PCP Internal Medicine; Visit Provider Nurse Practitioner Family
DX: M25.572 Pain in left ankle and joints of left foot (principal); M25.552 Pain in left hip
CPT/HCPCS: 73502; 73610

== ENCOUNTER → 2022-10-04 08:10 | Outpatient (BNVA) | payer MEDICARE, SELFPAY | PROVIDERS: PCP Internal Medicine; Visit Provider Internal Medicine | DX: Z86.718 Personal history of other venous thrombosis and embolism (principal); Z79.01 Long term (current) use of anticoagulants; Z51.81 Encounter for therapeutic drug level monitoring | CPT/HCPCS: 85610; 99211 ==

== ENCOUNTER 2022-10-04 10:54 | Emergency (ER) | payer MEDICARE, SELFPAY ==
--- NOTE | 2022-10-04 | ECG_ITS ---
Test Reason : WEAKNESS Blood Pressure : / mmHG Vent. Rate : 068 BPM Atrial Rate : 068 BPM P-R Int : 150 ms QRS Dur : 082 ms QT Int : 384 ms P-R-T Axes : 074 043 068 degrees QTc Int : 408 ms Normal sinus rhythm Normal ECG When compared with ECG of 25-OCT-2015 15:13, No significant change was found Referred By: Generic ED Physician Electronically Signed By:Chet Beauchamp
--- NOTE | ~2022-10-04 | CT_ITS ---
EXAMINATION: CT HEAD WITHOUT CONTRAST CLINICAL INFORMATION: On Coumadin, frequent falls. COMPARISON: None available. TECHNIQUE: Contiguous axial imaging was performed from the skull base to vertex without intravenous administration of contrast. Coronal and sagittal reformatted images were obtained. This CT examination was performed using dose optimization techniques as appropriate, variously including the following: *Automated exposure control *Adjustment of mA and/or kV according to patient size (this includes techniques or standardized protocols for targeted exams where dose is matched to indication/reason for exam; i.e. extremities or head) *Use of iterative reconstruction technique DLP: 632 mGy-cm FINDINGS: The cortical sulci are normal. The lateral ventricles are symmetrical. The third and fourth ventricles are in their normal midline position. The basilar and prepontine cisterns are unremarkable. Mild periventricular microvascular changes are seen. There is no acute intra or extracerebral abnormality. There is no mass effect or midline shift. Sections through the bony calvarium are unremarkable. The paranasal sinuses are clear. The bony orbits and orbital contents are unremarkable. CT/CT head/brain wo IV con IMPRESSION: No acute intracranial pathology.
--- NOTE | ~2022-10-04 | XR_ITS ---
EXAMINATION: XR CHEST CLINICAL INFORMATION: Weakness. COMPARISON: None available. TECHNIQUE: Frontal view of the chest was obtained. FINDINGS: There is mild elevation of the right hemidiaphragm with minimal blunting of the costophrenic angles bilaterally. The lungs otherwise clear. The heart and mediastinal structures are unremarkable. XR/XR chest 1V IMPRESSION: Minimal blunting of the costophrenic angles bilaterally likely representing pleural scarring. No acute cardiopulmonary process.
[2022-10-04 10:58] VITALS: BP 131/63; PULSE 81; RESP 16; TEMP 36.6; O2SAT 98; BMI 26.6
[2022-10-04 11:31] LABS: MANUAL DIFF FLAG NO
[2022-10-04 11:39] LABS: INTERNATIONAL NORM RATIO 1.6 (0.9-1.1); Prothrombin Time 19.2 SEC (10.0-13.1)
[2022-10-04 11:40] LABS: Basophils Percent Auto 0.4 % (0-2); Eosinophils Absolute Auto 0.1 X10*3/uL (0.0-0.4); Eosinophils Percent Auto 0.8 % (0-4); Hematocrit 37.3 % (42.0-52.0); Hemoglobin 12.1 g/dl (14.0-18.0); Imm Gran Abs Auto 0.02 X10*3/uL (0.00-0.03); Imm Gran Pct Auto 0.3 % (0.0-0.4); Lymphocytes Percent Auto 13.1 % (20-40); Mean Corpuscular HGB Conc 32.4 g/dl (31.0-36.0); Mean Corpuscular Hemoglobin 30.4 pg (27.0-33.0); Mean Corpuscular Volume 93.7 fL (80.0-98.0); Mean Platelet Volume 10.6 fL (9.4-12.4); Monocytes Absolute Auto 0.6 X10*3/uL (0.1-1.2); Neutrophils Absolute Auto 5.6 x10*3/uL (2.0-8.3); Neutrophils Percent Auto 77.4 % (45-73); Platelet Count 174 X10*3/uL (160-400); Red Blood Count 3.98 X10*6/uL (4.60-5.80); Red Cell Distribution Width 14.6 % (11.0-16.0); White Blood Count 7.3 X10*3/uL (4.8-10.8)
[2022-10-04 11:52] LABS: Alanine Aminotransferase 12 U/L (0-40); Albumin Level 3.9 g/dL (3.5-5.0); Alkaline Phosphatase 112 U/L (39-117); Anion Gap 15 (12-20); Aspartate Amino Transferase 16 U/L (5-37); Bilirubin Total 0.8 mg/dL (0.0-1.0); Blood Urea Nitrogen 39 mg/dL (9-16); Calcium 9.9 mg/dL (8.4-10.2); Carbon Dioxide 16 mmol/L (22-29); Chloride 115 mmol/L (96-108); Creatinine Clr Calc Pharmacy 33.1; Estimated Glomerular Filt Rate 35; Glucose Random 93 mg/dL (60-115); Potassium 5.9 mmol/L (3.3-5.1); Sodium 140 mmol/L (135-145); Total Protein 7.7 g/dL (6.5-8.0)
[2022-10-04 11:58] LABS: Troponin-I High Sensitivity 8.1 ng/L (<3.5-35.0)
[2022-10-04 12:37] VITALS: BP 106/70; PULSE 88; RESP 18; TEMP 36.4; O2SAT 98
--- NOTE | 2022-10-04 12:38 | ED.WEAKNESS ---
HPI - Weakness General Chief complaint: Weakness Stated complaint: weak Time Seen by Provider: 10/04/22 15:17 Source: patient Mode of arrival: ambulatory Limitations: no limitations History of Present Illness HPI Narrative: Patient history of hypertension, left leg DVT on Coumadin, anticardiolipin antibody , arthritis and peripheral vascular disease nonalcoholic been feeling weak this patient the left leg for last few months had difficulty in walking and falling frequently patient had a fall in 03/29 which was mechanical fall since then having problem walking last week also patient fell because his left leg was weak did not hit his head no headache no nausea no vomiting no chest pain. Related Data Home Medications Medication Instructions Recorded Confirmed ferrous sulfate 325 mg (65 mg 325 mg PO DAILY 03/22/20 10/04/22 iron) tablet (Feosol) ketoconazole 2 % shampoo topical 08/24/21 10/04/22 triamcinolone acetonide 0.1 % topical PRN 11/06/21 10/04/22 topical ointment omeprazole 20 mg capsule,delayed 20 mg PO DAILY 01/10/22 10/04/22 release dextromethorphan-guaifenesin 10 1 tab-cap PO Q8H 08/02/22 10/04/22 mg-200 mg capsule (Coricidin HBP Chest Congestion-Cough) Previous Rx's Medication Instructions Recorded allopurinol 100 mg tablet 100 mg PO DAILY #30 tabs 07/17/22 warfarin 6 mg tablet 6 mg PO DAILY #14 tabs 07/30/22 diltiazem HCl 240 mg 240 mg PO DAILY #90 caps 08/08/22 capsule,extended release 24 hr lidocaine 4 % topical patch 1 patch topical DAILY PRN pain #30 09/20/22 (Aspercreme (lidocaine)) toilet seat #1 ea 09/27/22 sodium bicarbonate 650 mg tablet 650 mg PO BID #60 tabs 10/04/22 sodium zirconium cyclosilicate 10 10 g PO DAILY #30 ea 10/04/22 gram oral powder packet (Lokelma) Allergies Allergy/AdvReac Type Severity Reaction Status Date / Time lisinopril Allergy Intermediate hyperkalemia Verified 10/04/22 11:00 / elevated creatinine Penicillins [PENICILLINS] Allergy Intermediate SWELLING Verified 10/04/22 11:00 colchicine AdvReac Intermediate Diarrhea Verified 10/04/22 11:00 Review of Systems Review of Systems: Yes all other systems are reviewed and are negative [facility] Past Medical History Medical History Annual physical exam Anticardiolipin antibody positive Anxiety Barretts esophagus Cholelithiasis Chronic kidney disease (CKD) stage G3b/A1, moderately decreased glomerular filtration rate (GFR) between 30-44 mL/min/1.73 square meter and albuminuria creatinine ratio less than 30 mg/g GERD (gastroesophageal reflux disease) Gout HTN (hypertension) Mass of hand Obesity (BMI 30-39.9) Osteoarthritis Renal stones Skin cancer Tobacco abuse Surgical History H/O cystoscopy H/O excision of ganglion cyst History of esophagogastroduodenoscopy (EGD) History of tumor Hx of tonsillectomy Family History Family History Mother Breast cancer Arthritis Father No problems noted. Social History Social History Housing: Apartment Alcohol intake: never Patient Tobacco Use Status: Current everyday Tobacco user Tobacco use type: Cigarette Cigarettes Per Day: 10 Years Smoked: 40 Smoked in Last 30 Days: Yes e-Cigarette/Vaping Use: Never Used Second Hand Smoke Exposure: No Use of substances other than those prescribed or required for medical reasons: No Advance Directives: No Advance Directives Information Provided: No Current occupational status: retired Cognitive needs: No Hearing needs: No Vision needs: No Physical Exam Vital Signs: Vital Signs: Last Vital Signs Temp 97.8 F 10/04/22 19:24 Pulse 71 10/04/22 19:24 Resp 18 10/04/22 19:24 BP 158/56 H 10/04/22 19:24 Pulse Ox 98 10/04/22 19:24 O2 Del Method Room Air 10/04/22 19:24 BMI result Body Mass Index 26.6 Appearance: Alert. Oriented X3. No acute distress. Eyes: PERRLA, No Nystagmus ENT: Pharynx normal. Oral Mucosa moist Neck: Normal inspection. Neck supple. CVS: Normal heart rate and rhythm. Pulses normal. Respiratory: No respiratory distress. Equal air entry bilateral, no wheezing/rales/rhonchi Abdomen: Soft and nontender. Bowel sounds are present, no mass palpable, no CVA tenderness Skin: Skin warm and dry. Normal skin color. Normal skin turgor. Extremities: No lower extremity edema. No calf tenderness or palpable pulses palpable chronic vascular insufficiency changes in lower extremity proximal weakness of the thigh muscles on the left side deep tendon reflexes intact Neuro: Oriented X 3. No motor deficit. No sensory deficit.No cerebellar signs , cranial nerves II-XII intact Course Course Course Narrative: This is an RME: Additional HPI, ROS, PE not included below will be deferred to primary provider. 71 year old male presents w/ weakness, and frequent falls X few months, last fall was about a week ago. Has fear of falling. No further medical complaints at this time at times gets anxious and gets chest pain. Lives at home with Coumadin 1.4 this am Plan- labs, imgaing, trop, ekg Medications Administered Discontinued Medications Generic Name Dose Route Start Last Admin Trade Name Freq PRN Reason Stop Dose Admin Sodium Chloride 1,000 mls @ 999 mls/hr 10/04/22 14:45 10/04/22 16:35 Ns IV 10/04/22 15:45 Infused .Q1H1M PHI Infusion Sodium Chloride 1,000 mls @ 999 mls/hr 10/04/22 14:45 10/04/22 17:18 Ns IV 10/04/22 15:45 Infused .Q1H1M PHI Infusion Calcium Gluconate 2 gm in 100 mls @ 50 mls/hr 10/04/22 15:53 10/04/22 19:30 Calcium Gluconate IV 10/04/22 17:52 Infused ONCE ONE Infusion Sodium Bicarbonate 50 meq 10/04/22 20:12 10/04/22 20:25 Sodium Bicarbonate 8.4% 50 Meq/50 Ml Syringe IVPUSH 10/04/22 20:13 50 meq ONCE ONE Administration Sodium Zirconium Cyclosilicate 10 gm 10/04/22 14:41 10/04/22 16:12 Sodium Zirconium Cyclosilicate 10 Gm Powd.Pack PO 10/04/22 14:42 10 gm ONCE ONE Administration Medical Decision Making Medical Decision Making MDM Narrative: Patient with CKD workup showed hyperkalemia of 5.9 and significant metabolic acidosis patient received IV fluids Lokelma, calcium gluconate potassium improved from 5.9 to 5.4. No EKG changes of hyperkalemia. 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 10/04/22 11:26 10/04/22 11:26 Labs: Lab Results 10/04/22 10/04/22 10/04/22 Range/Units 11:26 11:26 11:26 WBC 7.3 (4.8-10.8) X10*3/uL RBC 3.98 L (4.60-5.80) X10*6/uL Hgb 12.1 L (14.0-18.0) g/dl Hct 37.3 L (42.0-52.0) % MCV 93.7 (80.0-98.0) fL MCH 30.4 (27.0-33.0) pg MCHC 32.4 (31.0-36.0) g/dl RDW 14.6 (11.0-16.0) % Plt Count 174 (160-400) X10*3/uL MPV 10.6 (9.4-12.4) fL Immature Gran % (Auto) 0.3 (0.0-0.4) % Neut % (Auto) 77.4 H (45-73) % Lymph % (Auto) 13.1 L (20-40) % [place] % (Auto) 8.0 (2-11) % Eos % (Auto) 0.8 (0-4) % Baso % (Auto) 0.4 (0-2) % Lymph # (Auto) 1.0 L (1.2-4.9) X10*3/uL [place] # (Auto) 0.6 (0.1-1.2) X10*3/uL Eos # (Auto) 0.1 (0.0-0.4) X10*3/uL Baso # (Auto) 0.0 (0.0-0.2) X10*3/uL Abs Immat Gran (auto) 0.02 (0.00-0.03) X10*3/uL Absolute Neuts (auto) 5.6 (2.0-8.3) x10*3/uL Absolute Nucleated RBC 0.000 (0.0-0.012) X10*3/uL Nucleated RBC % (auto) 0.0 (0.0-0.2) /100WBC ESR (0-15) MM/HR PT 19.2 H (10.0-13.1) SEC INR 1.6 H (0.9-1.1) Sodium 140 (135-145) mmol/L Potassium 5.9 H (3.3-5.1) mmol/L Chloride 115 H (96-108) mmol/L Carbon Dioxide 16 L (22-29) mmol/L Anion Gap 15 (12-20) BUN 39 H (9-16) mg/dL Creatinine 1.91 H (0.5-1.4) mg/dL Estim Creat Clear Calc 33.1 Estimated GFR 35 Random Glucose 93 (60-115) mg/dL Calcium 9.9 D (8.4-10.2) mg/dL Total Bilirubin 0.8 (0.0-1.0) mg/dL AST 16 (5-37) U/L ALT 12 (0-40) U/L Alkaline Phosphatase 112 (39-117) U/L Total Creatine Kinase 335 H (38-174) U/L Troponin I High Sens (<3.5-35.0) ng/L Total Protein 7.7 (6.5-8.0) g/dL Albumin 3.9 (3.5-5.0) g/dL 10/04/22 10/04/22 10/04/22 Range/Units 11:26 11:26 19:27 WBC (4.8-10.8) X10*3/uL RBC (4.60-5.80) X10*6/uL Hgb (14.0-18.0) g/dl Hct (42.0-52.0) % MCV (80.0-98.0) fL MCH (27.0-33.0) pg MCHC (31.0-36.0) g/dl RDW (11.0-16.0) % Plt Count (160-400) X10*3/uL MPV (9.4-12.4) fL Immature Gran % (Auto) (0.0-0.4) % Neut % (Auto) (45-73) % Lymph % (Auto) (20-40) % [place] % (Auto) (2-11) % Eos % (Auto) (0-4) % Baso % (Auto) (0-2) % Lymph # (Auto) (1.2-4.9) X10*3/uL [place] # (Auto) (0.1-1.2) X10*3/uL Eos # (Auto) (0.0-0.4) X10*3/uL Baso # (Auto) (0.0-0.2) X10*3/uL Abs Immat Gran (auto) (0.00-0.03) X10*3/uL Absolute Neuts (auto) (2.0-8.3) x10*3/uL Absolute Nucleated RBC (0.0-0.012) X10*3/uL Nucleated RBC % (auto) (0.0-0.2) /100WBC ESR 45 H (0-15) MM/HR PT (10.0-13.1) SEC INR (0.9-1.1) Sodium 142 (135-145) mmol/L Potassium 5.4 H (3.3-5.1) mmol/L Chloride 116 H (96-108) mmol/L Carbon Dioxide 17 L (22-29) mmol/L Anion Gap 14 (12-20) BUN 39 H (9-16) mg/dL Creatinine 1.83 H (0.5-1.4) mg/dL Estim Creat Clear Calc 34.6 Estimated GFR 37 Random Glucose 76 (60-115) mg/dL Calcium 9.7 (8.4-10.2) mg/dL Total Bilirubin (0.0-1.0) mg/dL AST (5-37) U/L ALT (0-40) U/L Alkaline Phosphatase (39-117) U/L Total Creatine Kinase (38-174) U/L Troponin I High Sens 8.1 (<3.5-35.0) ng/L Total Protein (6.5-8.0) g/dL Albumin (3.5-5.0) g/dL Independent Interpretation I performed an independent interpretation of an: EKG Interpretation: Normal sinus rhythm heart rate 68 beats per minute normal intervals normal axis no acute ST and no acute ischemia Critical Care Time Critical Care Time Critical Care Time: Yes Total Critical Care Time: 45 Attestation: The patient was critically ill with a high probability of imminent or life threatening deterioration. I spent greater than 50 minutes of discontinuous time evaluating the patient,delivering critical care at the bedside, discussing and evaluating pertinent data with consultants. Critical care time does not include time spent performing separately billable procedures or teaching. Total time spent performing critical care was 45 minutes. Discharge Plan Discharge Clinical Impression: Acute hyperkalemia, Chronic kidney disease Patient Disposition: Home, Self-Care Instructions: Chronic Kidney Disease (ED), Hyperkalemia (ED) Additional Instructions: Follow-up with the kidney doctor next week Take medication for high potassium Avoid eating any food with high potassium Prescriptions: New Lokelma 10 gram powder in packet 10 g PO DAILY Qty: 30 0RF sodium bicarbonate 650 mg tablet 650 mg PO BID Qty: 60 0RF No Action allopurinol 100 mg tablet 100 mg PO DAILY Qty: 30 1RF warfarin 6 mg tablet 6 mg PO DAILY Qty: 14 0RF Protocol: Dose Management Condition: Saturday (Week One) Dose/Route: 3 mg Instruction: 0.5 x 6 mg tablets Condition: Saturday Dose/Route: 6 mg Instruction: 1 x 6 mg tablet Condition: Saturday Dose/Route: 3 mg Instruction: 0.5 x 6 mg tablets Condition: Saturday Dose/Route: 6 mg Instruction: 1 x 6 mg tablet Condition: Dose/Route: 6 mg Instruction: 1 x 6 mg tablet Condition: Saturday Dose/Route: 6 mg Instruction: 1 x 6 mg tablet Condition: Saturday Dose/Route: 3 mg Instruction: 0.5 x 6 mg tablets Condition: Saturday (Week Two) Dose/Route: 6 mg Instruction: 1 x 6 mg tablet Condition: Saturday Dose/Route: 3 mg Instruction: 0.5 x 6 mg tablets Condition: Saturday Dose/Route: 6 mg Instruction: 1 x 6 mg tablet Condition: Saturday Dose/Route: 3 mg Instruction: 0.5 x 6 mg tablets Condition: Dose/Route: 6 mg Instruction: 1 x 6 mg tablet Condition: Saturday Dose/Route: 3 mg Instruction: 0.5 x 6 mg tablets Condition: Saturday Dose/Route: 6 mg Instruction: 1 x 6 mg tablet Protocol Text: Adjustment Start Date: 10/04/22 INR Value: 1.7 INR Date: 10/04/22 Additional Instructions: AVOID [place] 2 DAYS RESUMEUSUAL DIET, DRINK WATER diltiazem HCl 240 mg capsule,extended release 24hr 240 mg PO DAILY Qty: 90 2RF (DME) toilet seat See Rx Instructions .Route .MEDSUPPLY Qty: 1 0RF Rx Instructions: As directed lidocaine [Aspercreme (lidocaine)] 4 % adhesive patch,medicated 1 patch topical DAILY PRN (Reason: pain) Qty: 30 0RF ferrous sulfate [Feosol] 325 mg (65 mg iron) tablet 325 mg PO DAILY ketoconazole 2 % shampoo topical triamcinolone acetonide 0.1 % ointment topical PRN omeprazole 20 mg capsule,delayed release(DR/EC) 20 mg PO DAILY Coricidin HBP Chest Ezra-Cough 10-200 mg capsule 1 tab-cap PO Q8H Interventions: ED Discharge Assessment Last Done: 10/04/22 20:32 Discharge Date/Time: 10/04/22 20:35
[2022-10-04 15:18] VITALS: BP 99/60; PULSE 69; RESP 15; TEMP 36.5; O2SAT 99
[2022-10-04] MEDS: 0.9 % Sodium Chloride 1,000 ML 999 ML IV ×2 (15:38→16:16)
[2022-10-04] MEDS: Sodium Zirconium Cyclosilicate 10 GM POWD.PACK PO (16:12)
[2022-10-04] MEDS: Calcium Gluconate/NaCl,Iso-Osm 2 GM/100 ML PLAST..BAG IV (16:12)
--- NOTE | 2022-10-04 16:35 | PC.NURSE ---
Pt returned from Cat scan, pending results.
[2022-10-04 17:14] LABS: Erythrocyte Sedimentation Rate 45 MM/HR (0-15)
[2022-10-04 19:24] VITALS: BP 158/56; PULSE 71; RESP 18; TEMP 36.6; O2SAT 98
[2022-10-04 19:48] LABS: Anion Gap 14 (12-20); Blood Urea Nitrogen 39 mg/dL (9-16); Calcium 9.7 mg/dL (8.4-10.2); Carbon Dioxide 17 mmol/L (22-29); Chloride 116 mmol/L (96-108); Creatinine Clr Calc Pharmacy 34.6; Estimated Glomerular Filt Rate 37; Glucose Random 76 mg/dL (60-115); Potassium 5.4 mmol/L (3.3-5.1); Sodium 142 mmol/L (135-145)
[2022-10-04] MEDS: Sodium Bicarbonate 8.4% 50 MEQ/50 ML SYRINGE IVPUSH (20:25)
== END 2022-10-04 20:35 | disposition home or self-care (01) ==
PROVIDERS: Emergency Provider Internal Medicine; PCP Internal Medicine
DX: E87.5 Hyperkalemia (principal); R51.9 Headache, unspecified; R53.1 Weakness; R07.89 Other chest pain; Z79.899 Other long term (current) drug therapy
CPT/HCPCS: 36415; 70450; 71045; 80048; 80053; 82550; 84484; 85025; 85610; 85652; 93005; 96361; 96365; 96366; 96375; 99285; J0613

== ENCOUNTER → 2022-10-12 08:27 | Outpatient (BNVA) | payer MEDICARE, OTHER, SELFPAY | PROVIDERS: PCP Internal Medicine; Visit Provider Internal Medicine | DX: Z86.718 Personal history of other venous thrombosis and embolism (principal); Z79.01 Long term (current) use of anticoagulants; Z51.81 Encounter for therapeutic drug level monitoring | CPT/HCPCS: 85610; 99211 ==

== ENCOUNTER 2022-10-12 08:51 | Outpatient (REF) | payer MEDICARE, OTHER, SELFPAY ==
[2022-10-12 11:23] LABS: Anion Gap 17 (12-20); Blood Urea Nitrogen 26 mg/dL (9-16); Calcium 9.6 mg/dL (8.4-10.2); Carbon Dioxide 19 mmol/L (22-29); Chloride 111 mmol/L (96-108); Estimated Glomerular Filt Rate 44; Glucose Random 97 mg/dL (60-115); Potassium 3.5 mmol/L (3.3-5.1); Sodium 143 mmol/L (135-145)
== END 2022-10-12 08:52 | disposition home or self-care (01) ==
LOC: HO.LAB 08:51
PROVIDERS: PCP Internal Medicine; Visit Provider Internal Medicine
DX: N18.32 Chronic kidney disease, stage 3b (principal)
CPT/HCPCS: 36415; 80048

== ENCOUNTER 2022-11-05 15:12 | Outpatient (AMB) | payer MEDICARE, OTHER, SELFPAY ==
[2022-11-05 15:19] LABS: Prothrombin Time Whole Bld POC 34.1 sec (11.1-13.5); ~PT, ~INR - Anti Coag Clinic 2.8 (0.9-1.1)
--- NOTE | 2022-11-05 15:47 | MHC.OFFVISCO ---
Intake Intake Visit Reasons: Anticoagulation Allergies lisinopril Allergy (Intermediate, Verified 11/05/22 15:13) hyperkalemia / elevated creatinine Penicillins [PENICILLINS] Allergy (Intermediate, Verified 11/05/22 15:13) SWELLING colchicine Adverse Reaction (Intermediate, Verified 11/05/22 15:13) Diarrhea Medication List - Last Reconciled 11/05/22 by Minerva Cabello RN allopurinol 100 mg PO DAILY dextromethorphan-guaifenesin 10-200 mg (Coricidin HBP Chest Congestion-Cough) 1 tab-cap PO Q8H diclofenac sodium 1% (Arthritis Pain (diclofenac)) 2 grams topical QID PRN diltiazem HCl 240 mg PO DAILY ferrous sulfate (Feosol) 325 mg PO DAILY ketoconazole 2% topical lidocaine 4% (Aspercreme (lidocaine)) 1 patch topical DAILY PRN omeprazole 20 mg PO DAILY sodium bicarbonate 650 mg PO BID sodium zirconium cyclosilicate (Lokelma) 10 grams PO DAILY [toilet seat As directed] triamcinolone acetonide 0.1% topical PRN warfarin 6 mg See Protocol PO DAILY Nursing Note INR: 2.8 in therapeutic range Medications and supplements reviewed PT STATES HE FELL 2 WEEKS AGO, HAS BEEN HAVING HIP PAIN, HE IS TO HAVE AN MRI TODAY HE WALKED WITH ROLLING WALKER VERY WEAK, C/O ABD PAIN, AND DOES NOT FEEL WELL, WHEN ATTEMPTING TO STAND AND AMBULATE HE WAS TOO WEAK TO STAND BY SELF, STATES ABD PAIN GETTING WORSE, PT COLOR IS VERY PALE, HE STATES HIS PAIN 5/10 AND GETTING WORSE, STATES HIS LEGS ARE SO WEAK, PT APPEARS TO HAVE LOST SIGNIFICANT WEIGHT, DUE TO HIS WEAKNESS AND PAIN HE WAS OFFERED THE ER AND AFTER TRYING TO STAND TO WALK HE STATED BRING ME TO THE ER Denies any signs and symptoms of bleeding or bruising or clotting. Bleeding, bruising, clotting discussed Nutritional guidance given - EAT TOLERATED SMALL FREQUENT MEALS Dose: KEEP SAME FOR NOW 3MG X 3 DAYS/ 6MG X 4 DAYS F/U INR: 2 WEEKS WITH [facility] IF ABLE TO GET SERVICES Patient verbalizes understanding of instructions given CALL PLACED TO ER PT BROUGHT UP BY WHEELCHAIR WITH Anti-Coag Initial Assessment Social Hx Patient Tobacco Use Status: Current everyday Tobacco user Tobacco use type: Cigarette alcohol intake: never Alcohol intake frequency: does not drink Coding Level of Care Code Est Patient Level 1 Diagnoses Current use of anticoagulant therapy Z79.01 Assessment & Plan Assessment & Plan (1) Current use of anticoagulant therapy: Code(s): 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
== END 2022-11-05 15:57 | disposition home or self-care (01) ==
LOC: HO.ACS 15:12
PROVIDERS: PCP Internal Medicine; Visit Provider Internal Medicine
DX: Z79.01 Long term (current) use of anticoagulants (principal)

== ENCOUNTER → 2022-11-05 15:12 | Outpatient (BNVA) | payer MEDICARE, OTHER, SELFPAY | PROVIDERS: PCP Internal Medicine; Visit Provider Internal Medicine ==

== ENCOUNTER 2022-11-05 15:41 | Emergency (ER) | payer MEDICARE, SELFPAY ==
--- NOTE | ~2022-11-05 | CT_ITS ---
EXAMINATION: CT ABDOMEN AND PELVIS WITHOUT CONTRAST CLINICAL INFORMATION: Reason for Exam abd pain. COMPARISON: No pertinent prior studies are available for comparison. TECHNIQUE: Multidetector volumetric imaging was performed from the superior aspect of the liver through the pubic symphysis without contrast per renal stone protocol. Sagittal and coronal reformatted images were obtained on the technologist workstation. This CT examination was performed using dose optimization techniques as appropriate, variously including the following: *Automated exposure control *Adjustment of mA and/or kV according to patient size (this includes techniques or standardized protocols for targeted exams where dose is matched to indication/reason for exam; i.e. extremities or head) *Use of iterative reconstruction technique DLP: 599 mGy-cm. FINDINGS: LUNG BASES: The visualized lung bases are unremarkable. Small hiatal hernia. LIVER, GALLBLADDER, BILIARY TREE: The non-contrast liver is normal in size, shape, and attenuation. No focal hepatic lesion or biliary ductal dilatation is present. Innumerable gallstones are seen within the otherwise unremarkable gallbladder. No gallbladder wall thickening or pericholecystic inflammatory change. PANCREAS: Unremarkable. SPLEEN: Unremarkable. ADRENAL GLANDS: Unremarkable. KIDNEYS AND URETERS: Left kidney is atrophic with a few tiny nonobstructing calculi seen. I do not appreciate any obstructive changes in the contralateral right kidney. Partially exophytic tiny posterior lower pole cyst is seen. Partially exophytic tiny medial upper pole cyst is seen. No suspicious ureteric calculi BLADDER: Unremarkable. GASTROINTESTINAL TRACT: There is scattered colonic diverticulosis but no colonic wall thickening or pericolonic inflammatory change to suggest diverticulitis. Normal-appearing appendix in the right lower quadrant. ABDOMINAL WALL: No significant hernia is appreciated. LYMPHOVASCULAR STRUCTURES: Vascular calcification within the aorta iliac system. No bulky adenopathy. PELVIC VISCERA: Prostate is enlarged OSSEUS STRUCTURES: Multilevel degenerative changes in the spine. Postoperative changes in the lower thoracic/upper lumbar spine CT/CT abdomen pelvis wo IV con IMPRESSION: Chronic appearing changes as described above. I do not appreciate any acute intra-abdominal process.
--- NOTE | 2022-11-05 16:09 | ED.GENADULT ---
HPI - General Adult General Chief complaint: Abdominal Pain Stated complaint: weakness,abd pain Time Seen by Provider: 11/05/22 22:42 Related Data Home Medications ?Medication ?Instructions ?Recorded ?Confirmed ferrous sulfate 325 mg (65 mg 325 mg PO DAILY 03/22/20 03/09/23 iron) tablet (Feosol) omeprazole 20 mg capsule,delayed 20 mg PO DAILY 01/10/22 03/09/23 release dextromethorphan-guaifenesin 10 1 tab-cap PO Q8H PRN 08/02/22 03/09/23 mg-200 mg capsule (Coricidin HBP congestion/cough Chest Congestion-Cough) Previous Rx's ?Medication ?Instructions ?Recorded toilet seat #1 ea 09/27/22 sodium bicarbonate 650 mg tablet 650 mg PO BID #60 tabs 10/04/22 allopurinol 100 mg tablet 100 mg PO DAILY #90 tabs 12/28/22 diltiazem HCl 240 mg 240 mg PO DAILY #90 caps 01/11/23 capsule,extended release 24 hr wheelchair #1 ea 02/06/23 prednisone 20 mg tablet 20 mg PO DAILY #5 tabs 02/07/23 mirtazapine 15 mg tablet 15 mg PO BEDTIME #30 tabs 02/12/23 PROTHROMBIN TIME MONITOR #1 ea 02/13/23 apixaban 5 mg tablet (Eliquis) 5 mg PO BID #60 tabs 02/19/23 Allergies Allergy/AdvReac Type Severity Reaction Status Date / Time lisinopril Allergy Intermediate hyperkalemia Verified 02/07/23 15:56 / elevated creatinine Penicillins [PENICILLINS] Allergy Intermediate SWELLING Verified 02/07/23 15:56 colchicine AdvReac Intermediate Diarrhea Verified 02/07/23 15:56 [facility] Past Medical History Medical History (Updated 03/28/23 @ 10:17 by Freida Leyva MD) Degenerative joint disease (DJD) of hip Annual physical exam Skin cancer Gout Tobacco abuse GERD (gastroesophageal reflux disease) Anxiety Anticardiolipin antibody positive Cholelithiasis Chronic kidney disease (CKD) stage G3b/A1, moderately decreased glomerular filtration rate (GFR) between 30-44 mL/min/1.73 square meter and albuminuria creatinine ratio less than 30 mg/g Barretts esophagus Osteoarthritis Mass of hand Renal stones HTN (hypertension) Surgical History History of esophagogastroduodenoscopy (EGD) History of tumor H/O excision of ganglion cyst H/O cystoscopy Hx of tonsillectomy Family History Family History Mother Breast cancer Arthritis Father No problems noted. Social History Social History Housing: Apartment Alcohol intake: never Patient Tobacco Use Status: Current everyday Tobacco user Tobacco use type: Cigarette Cigarettes Per Day: 10 Years Smoked: 40 e-Cigarette/Vaping Use: Never Used Second Hand Smoke Exposure: No Advance Directives Date on File: 01/28/23 Current occupational status: retired Cognitive needs: No Hearing needs: No Vision needs: No Physical Exam ED Vital Signs: BMI result Body Mass Index 26.6 Course Course Course Narrative: This is an RME: Additional HPI, ROS, PE not included below will be deferred to primary provider. 71-year-old male presents with weakness, fatigue, lower abdominal discomfort for the past few days, coming [facility] where he was noted to be very weak, deviating from his normal. Patient states he feels terrible. Physical exam suprapubic discomfort Plan labs, imaging, urine Medications Administered Discontinued Medications Generic Name Dose Route Start Last Admin Trade Name Freq PRN Reason Stop Dose Admin Dicyclomine HCl 20 mg 11/05/22 23:05 11/05/22 23:25 Dicyclomine Hcl 10 Mg Capsule PO 11/05/22 23:06 Not Given ONCE ONE Sodium Zirconium Cyclosilicate 5 gm 11/05/22 19:37 11/05/22 22:42 Sodium Zirconium Cyclosilicate 5 Gm Powd.Pack PO 11/05/22 19:38 5 gm ONCE ONE Administration Medical Decision Making Lab Data 11/05/22 18:27 11/05/22 18:27 Labs: Lab Results 11/05/22 11/05/22 Range/Units 18:27 19:43 WBC 7.9 (4.8-10.8) X10*3/uL RBC 3.92 L (4.60-5.80) X10*6/uL Hgb 11.7 L (14.0-18.0) g/dl Hct 37.1 L (42.0-52.0) % MCV 94.6 (80.0-98.0) fL MCH 29.8 (27.0-33.0) pg MCHC 31.5 (31.0-36.0) g/dl RDW 13.5 (11.0-16.0) % Plt Count 214 (160-400) X10*3/uL MPV 10.3 (9.4-12.4) fL Immature Gran % (Auto) 0.5 H (0.0-0.4) % Neut % (Auto) 70.8 (45-73) % Lymph % (Auto) 20.5 (20-40) % [place] % (Auto) 7.2 (2-11) % Eos % (Auto) 0.5 (0-4) % Baso % (Auto) 0.5 (0-2) % Lymph # (Auto) 1.6 (1.2-4.9) X10*3/uL [place] # (Auto) 0.6 (0.1-1.2) X10*3/uL Eos # (Auto) 0.0 (0.0-0.4) X10*3/uL Baso # (Auto) 0.0 (0.0-0.2) X10*3/uL Abs Immat Gran (auto) 0.04 H (0.00-0.03) X10*3/uL Absolute Neuts (auto) 5.6 (2.0-8.3) x10*3/uL Absolute Nucleated RBC 0.000 (0.0-0.012) X10*3/uL Nucleated RBC % (auto) 0.0 (0.0-0.2) /100WBC PT 34.0 H (11.1-13.3) SEC INR 2.8 H (0.9-1.1) Sodium 141 (135-145) mmol/L Potassium 5.2 H D (3.3-5.1) mmol/L Chloride 114 H (96-108) mmol/L Carbon Dioxide 16 L (22-29) mmol/L Anion Gap 16 (12-20) BUN 38 H (9-16) mg/dL Creatinine 1.86 H (0.5-1.4) mg/dL Estim Creat Clear Calc 35.2 Estimated GFR 36 Random Glucose 87 (60-115) mg/dL Lactic Acid 1.1 (0.5-2.0) mmol/L Calcium 10.1 (8.4-10.2) mg/dL Magnesium 2.0 (1.6-2.6) mg/dL Total Bilirubin 0.5 (0.0-1.0) mg/dL AST 16 (5-37) U/L ALT 14 (0-40) U/L Alkaline Phosphatase 120 H (39-117) U/L Total Protein 8.6 H (6.5-8.0) g/dL Albumin 3.8 (3.5-5.0) g/dL Lipase 28 (8-78) U/L Discharge Plan Discharge Clinical Impression: Irritable bowel syndrome Patient Disposition: Home, Self-Care Instructions: Irritable Bowel Syndrome (ED) Additional Instructions: Drink plenty of fluids Medicine for abdominal spasm as prescribed Continue to use Lokelma daily Prescriptions: No Action (DME) toilet seat See Rx Instructions .Route .MEDSUPPLY Qty: 1 0RF Rx Instructions: As directed allopurinol 100 mg tablet 100 mg PO DAILY Qty: 90 1RF diltiazem HCl 240 mg capsule,extended release 24hr 240 mg PO DAILY Qty: 90 2RF (DME) wheelchair See Rx Instructions .Route .MEDSUPPLY Qty: 1 0RF Rx Instructions: As directed (DME) PROTHROMBIN TIME MONITOR See Rx Instructions .Route .MEDSUPPLY Qty: 1 0RF Rx Instructions: As directed Eliquis 5 mg tablet 5 mg PO BID Qty: 60 2RF sodium bicarbonate 650 mg tablet 650 mg PO BID Qty: 60 0RF ferrous sulfate [Feosol] 325 mg (65 mg iron) tablet 325 mg PO DAILY omeprazole 20 mg capsule,delayed release(DR/EC) 20 mg PO DAILY Coricidin HBP Chest Ezra-Cough 10-200 mg capsule 1 tab-cap PO Q8H PRN (Reason: congestion/cough) prednisone 20 mg tablet 20 mg PO DAILY Qty: 5 0RF mirtazapine 15 mg tablet 15 mg PO BEDTIME Qty: 30 3RF Interventions: ED Discharge Assessment Last Done: 11/05/22 23:24 Discharge Date/Time: 11/05/22 23:24 Print Language: Luxembourgish
[2022-11-05 16:10] VITALS: BP 102/77; PULSE 55; RESP 18; TEMP 36.6; O2SAT 99; BMI 26.6
[2022-11-05 18:33] LABS: MANUAL DIFF FLAG NO
[2022-11-05 18:43] LABS: Lactic Acid 1.1 mmol/L (0.5-2.0)
[2022-11-05 18:45] LABS: Basophils Percent Auto 0.5 % (0-2); Eosinophils Percent Auto 0.5 % (0-4); Hematocrit 37.1 % (42.0-52.0); Hemoglobin 11.7 g/dl (14.0-18.0); Imm Gran Abs Auto 0.04 X10*3/uL (0.00-0.03); Imm Gran Pct Auto 0.5 % (0.0-0.4); Lymphocytes Absolute Auto 1.6 X10*3/uL (1.2-4.9); Lymphocytes Percent Auto 20.5 % (20-40); Mean Corpuscular HGB Conc 31.5 g/dl (31.0-36.0); Mean Corpuscular Hemoglobin 29.8 pg (27.0-33.0); Mean Corpuscular Volume 94.6 fL (80.0-98.0); Mean Platelet Volume 10.3 fL (9.4-12.4); Monocytes Absolute Auto 0.6 X10*3/uL (0.1-1.2); Monocytes Percent Auto 7.2 % (2-11); Neutrophils Absolute Auto 5.6 x10*3/uL (2.0-8.3); Neutrophils Percent Auto 70.8 % (45-73); Platelet Count 214 X10*3/uL (160-400); Red Blood Count 3.92 X10*6/uL (4.60-5.80); Red Cell Distribution Width 13.5 % (11.0-16.0); White Blood Count 7.9 X10*3/uL (4.8-10.8)
[2022-11-05 18:48] LABS: Alanine Aminotransferase 14 U/L (0-40); Albumin Level 3.8 g/dL (3.5-5.0); Alkaline Phosphatase 120 U/L (39-117); Anion Gap 16 (12-20); Aspartate Amino Transferase 16 U/L (5-37); Bilirubin Total 0.5 mg/dL (0.0-1.0); Blood Urea Nitrogen 38 mg/dL (9-16); Calcium 10.1 mg/dL (8.4-10.2); Carbon Dioxide 16 mmol/L (22-29); Chloride 114 mmol/L (96-108); Creatinine Clr Calc Pharmacy 35.2; Estimated Glomerular Filt Rate 36; Glucose Random 87 mg/dL (60-115); Lipase 28 U/L (8-78); Potassium 5.2 mmol/L (3.3-5.1); Sodium 141 mmol/L (135-145); Total Protein 8.6 g/dL (6.5-8.0)
[2022-11-05 20:00] LABS: INTERNATIONAL NORM RATIO 2.8 (0.9-1.1)
[2022-11-05] MEDS: Sodium Zirconium Cyclosilicate 5 GM POWD.PACK PO (22:42)
--- NOTE | 2022-11-05 23:13 | ED_ITS ---
HPI - Abdominal Pain General Chief Complaint: Abdominal Pain Stated Complaint: weakness,abd pain Time Seen by Provider: 11/05/22 22:42 Source: patient Mode of arrival: ambulatory Limitations: no limitations History of Present Illness HPI narrative: Patient with chronic abdominal pain for years brought by his for diffuse lower abdominal some discomfort for last few days no fever no chills no urinary complaints no vomiting no diarrhea patient his CT scan prior to my evaluation which was negative Related Data Home Medications Medication Instructions Recorded Confirmed ferrous sulfate 325 mg (65 mg 325 mg PO DAILY 03/22/20 11/05/22 iron) tablet (Feosol) ketoconazole 2 % shampoo topical 08/24/21 11/05/22 triamcinolone acetonide 0.1 % topical PRN 11/06/21 11/05/22 topical ointment omeprazole 20 mg capsule,delayed 20 mg PO DAILY 01/10/22 11/05/22 release dextromethorphan-guaifenesin 10 1 tab-cap PO Q8H 08/02/22 11/05/22 mg-200 mg capsule (Coricidin HBP Chest Congestion-Cough) Previous Rx's Medication Instructions Recorded allopurinol 100 mg tablet 100 mg PO DAILY #30 tabs 07/17/22 warfarin 6 mg tablet 6 mg PO DAILY #14 tabs 07/30/22 diltiazem HCl 240 mg 240 mg PO DAILY #90 caps 08/08/22 capsule,extended release 24 hr lidocaine 4 % topical patch 1 patch topical DAILY PRN pain #30 09/20/22 (Aspercreme (lidocaine)) ea toilet seat #1 ea 09/27/22 sodium bicarbonate 650 mg tablet 650 mg PO BID #60 tabs 10/04/22 sodium zirconium cyclosilicate 10 10 g PO DAILY #30 ea 10/04/22 gram oral powder packet (Lokelma) diclofenac sodium 1 % topical gel 2 g topical QID PRN pain #100 grams 10/11/22 (Arthritis Pain (diclofenac)) dicyclomine 20 mg tablet 20 mg PO TID PRN abdominal pain 11/05/22 #20 tabs Allergies Allergy/AdvReac Type Severity Reaction Status Date / Time lisinopril Allergy Intermediate hyperkalemia Verified 11/05/22 15:13 / elevated creatinine Penicillins [PENICILLINS] Allergy Intermediate SWELLING Verified 11/05/22 15:13 colchicine AdvReac Intermediate Diarrhea Verified 11/05/22 15:13 Review of Systems Review of Systems Yes all other systems are reviewed and are negative FOR[facility]LY [facility] Past Medical History Medical History Annual physical exam Anticardiolipin antibody positive Anxiety Barretts esophagus Cholelithiasis Chronic kidney disease (CKD) stage G3b/A1, moderately decreased glomerular filtration rate (GFR) between 30-44 mL/min/1.73 square meter and albuminuria creatinine ratio less than 30 mg/g GERD (gastroesophageal reflux disease) Gout HTN (hypertension) Mass of hand Obesity (BMI 30-39.9) Osteoarthritis Renal stones Skin cancer Tobacco abuse Surgical History H/O cystoscopy H/O excision of ganglion cyst History of esophagogastroduodenoscopy (EGD) History of tumor Hx of tonsillectomy Family History Family History Mother Breast cancer Arthritis Father No problems noted. Social History Social History Housing: Apartment Alcohol intake: never Patient Tobacco Use Status: Current everyday Tobacco user Tobacco use type: Cigarette Cigarettes Per Day: 10 Years Smoked: 40 e-Cigarette/Vaping Use: Never Used Second Hand Smoke Exposure: No Advance Directives: No Advance Directives Information Provided: Yes Current occupational status: retired Cognitive needs: No Hearing needs: No Vision needs: No Physical Exam ED Vital Signs: Vital Signs - 24 hr 11/05/22 16:10 Temperature 97.9 F Pulse Rate 55 Respiratory Rate 18 Blood Pressure 102/77 Pulse Oximetry 99 Oxygen Delivery Method Room Air BMI result Body Mass Index 26.6 Appearance: Alert. Oriented X3. No acute distress. Eyes: PERRLA, no pallor or icterus ENT: Pharynx normal. Oral Mucosa moist Neck: Normal inspection. Neck supple. CVS: Normal heart rate and rhythm. Pulses normal. Respiratory: No respiratory distress. Equal air entry bilateral, Abdomen: Soft mild diffuse tenderness no rebound tenderness or guarding Bowel sounds are present, no mass palpable, no CVA tenderness Skin: Skin warm and dry. Normal skin color. Normal skin turgor. Extremities: No lower extremity edema. No calf tenderness Neuro: Oriented X 3. No motor deficit. Medical Decision Making Medical Decision Making [facility] Narrative: Patient stable labs slightly elevated potassium 5.2 which is chronic has Lokelma at home clinically has IBS taking p.o. fluids in the ER without any discomfort will discharge patient home on dicyclomine Differential Diagnosis Differential Diagnoses: The differential diagnosis associated with the presentation includes Diverticulitis/colitis/IBS Lab Data [facility] Lab Attestation statement: I reviewed the patient's lab results. 11/05/22 18:27 11/05/22 18:27 Labs: Lab Results 11/05/22 11/05/22 11/05/22 Range/Units 18:27 18:27 18:27 WBC 7.9 (4.8-10.8) X10*3/uL RBC 3.92 L (4.60-5.80) X10*6/uL Hgb 11.7 L (14.0-18.0) g/dl Hct 37.1 L (42.0-52.0) % MCV 94.6 (80.0-98.0) fL MCH 29.8 (27.0-33.0) pg MCHC 31.5 (31.0-36.0) g/dl RDW 13.5 (11.0-16.0) % Plt Count 214 (160-400) X10*3/uL MPV 10.3 (9.4-12.4) fL Immature Gran % (Auto) 0.5 H (0.0-0.4) % Neut % (Auto) 70.8 (45-73) % Lymph % (Auto) 20.5 (20-40) % Harrison % (Auto) 7.2 (2-11) % Eos % (Auto) 0.5 (0-4) % Baso % (Auto) 0.5 (0-2) % Lymph # (Auto) 1.6 (1.2-4.9) X10*3/uL Harrison # (Auto) 0.6 (0.1-1.2) X10*3/uL Eos # (Auto) 0.0 (0.0-0.4) X10*3/uL Baso # (Auto) 0.0 (0.0-0.2) X10*3/uL Abs Immat Gran (auto) 0.04 H (0.00-0.03) X10*3/uL Absolute Neuts (auto) 5.6 (2.0-8.3) x10*3/uL Absolute Nucleated RBC 0.000 (0.0-0.012) X10*3/uL Nucleated RBC % (auto) 0.0 (0.0-0.2) /100WBC PT (11.1-13.3) SEC INR (0.9-1.1) Sodium 141 (135-145) mmol/L Potassium 5.2 H D (3.3-5.1) mmol/L Chloride 114 H (96-108) mmol/L Carbon Dioxide 16 L (22-29) mmol/L Anion Gap 16 (12-20) BUN 38 H (9-16) mg/dL Creatinine 1.86 H (0.5-1.4) mg/dL Estim Creat Clear Calc 35.2 Estimated GFR 36 Random Glucose 87 (60-115) mg/dL Lactic Acid 1.1 (0.5-2.0) mmol/L Calcium 10.1 (8.4-10.2) mg/dL Magnesium 2.0 (1.6-2.6) mg/dL Total Bilirubin 0.5 (0.0-1.0) mg/dL AST 16 (5-37) U/L ALT 14 (0-40) U/L Alkaline Phosphatase 120 H (39-117) U/L Total Protein 8.6 H (6.5-8.0) g/dL Albumin 3.8 (3.5-5.0) g/dL Lipase 28 (8-78) U/L 11/05/22 Range/Units 19:43 WBC (4.8-10.8) X10*3/uL RBC (4.60-5.80) X10*6/uL Hgb (14.0-18.0) g/dl Hct (42.0-52.0) % MCV (80.0-98.0) fL MCH (27.0-33.0) pg MCHC (31.0-36.0) g/dl RDW (11.0-16.0) % Plt Count (160-400) X10*3/uL MPV (9.4-12.4) fL Immature Gran % (Auto) (0.0-0.4) % Neut % (Auto) (45-73) % Lymph % (Auto) (20-40) % Harrison % (Auto) (2-11) % Eos % (Auto) (0-4) % Baso % (Auto) (0-2) % Lymph # (Auto) (1.2-4.9) X10*3/uL Harrison # (Auto) (0.1-1.2) X10*3/uL Eos # (Auto) (0.0-0.4) X10*3/uL Baso # (Auto) (0.0-0.2) X10*3/uL Abs Immat Gran (auto) (0.00-0.03) X10*3/uL Absolute Neuts (auto) (2.0-8.3) x10*3/uL Absolute Nucleated RBC (0.0-0.012) X10*3/uL Nucleated RBC % (auto) (0.0-0.2) /100WBC PT 34.0 H (11.1-13.3) SEC INR 2.8 H (0.9-1.1) Sodium (135-145) mmol/L Potassium (3.3-5.1) mmol/L Chloride (96-108) mmol/L Carbon Dioxide (22-29) mmol/L Anion Gap (12-20) BUN (9-16) mg/dL Creatinine (0.5-1.4) mg/dL Estim Creat Clear Calc Estimated GFR Random Glucose (60-115) mg/dL Lactic Acid (0.5-2.0) mmol/L Calcium (8.4-10.2) mg/dL Magnesium (1.6-2.6) mg/dL Total Bilirubin (0.0-1.0) mg/dL AST (5-37) U/L ALT (0-40) U/L Alkaline Phosphatase (39-117) U/L Total Protein (6.5-8.0) g/dL Albumin (3.5-5.0) g/dL Lipase (8-78) U/L Medications Administered Discontinued Medications Generic Name Dose Route Start Last Admin Trade Name Freq PRN Reason Stop Dose Admin Dicyclomine HCl 20 mg 11/05/22 23:05 11/05/22 23:25 Dicyclomine Hcl 10 Mg Capsule PO 11/05/22 23:06 Not Given ONCE ONE Sodium Zirconium Cyclosilicate 5 gm 11/05/22 19:37 11/05/22 22:42 Sodium Zirconium Cyclosilicate 5 Gm Powd.Pack PO 11/05/22 19:38 5 gm ONCE ONE Administration Discharge Plan Discharge Clinical Impression: Irritable bowel syndrome Patient Disposition: Home, Self-Care Instructions: Irritable Bowel Syndrome (ED) Additional Instructions: Drink plenty of fluids Medicine for abdominal spasm as prescribed Continue to use Lokelma daily Prescriptions: New dicyclomine 20 mg tablet 20 mg PO TID PRN (Reason: abdominal pain) Qty: 20 0RF No Action allopurinol 100 mg tablet 100 mg PO DAILY Qty: 30 1RF warfarin 6 mg tablet 6 mg PO DAILY Qty: 14 0RF Protocol: Dose Management Condition: Saturday (Week One) Dose/Route: 6 mg Instruction: 1 x 6 mg tablet Condition: Saturday Dose/Route: 3 mg Instruction: 0.5 x 6 mg tablets Condition: Saturday Dose/Route: 6 mg Instruction: 1 x 6 mg tablet Condition: Saturday Dose/Route: 3 mg Instruction: 0.5 x 6 mg tablets Condition: Dose/Route: 6 mg Instruction: 1 x 6 mg tablet Condition: Saturday Dose/Route: 3 mg Instruction: 0.5 x 6 mg tablets Condition: Saturday Dose/Route: 6 mg Instruction: 1 x 6 mg tablet Condition: Saturday (Week Two) Dose/Route: 6 mg Instruction: 1 x 6 mg tablet Condition: Saturday Dose/Route: 3 mg Instruction: 0.5 x 6 mg tablets Condition: Saturday Dose/Route: 6 mg Instruction: 1 x 6 mg tablet Condition: Saturday Dose/Route: 3 mg Instruction: 0.5 x 6 mg tablets Condition: Dose/Route: 6 mg Instruction: 1 x 6 mg tablet Condition: Saturday Dose/Route: 3 mg Instruction: 0.5 x 6 mg tablets Condition: Saturday Dose/Route: 6 mg Instruction: 1 x 6 mg tablet Protocol Text: Adjustment Start Date: Saturday11/05/22 INR Value: 2.8 INR Date: 11/05/22 Recheck Date: 12/03/22 diltiazem HCl 240 mg capsule,extended release 24hr 240 mg PO DAILY Qty: 90 2RF (DME) toilet seat See Rx Instructions .Route .MEDSUPPLY Qty: 1 0RF Rx Instructions: As directed diclofenac sodium [Arthritis Pain (diclofenac)] 1 % gel 2 g topical QID PRN (Reason: pain) Qty: 100 0RF Lokelma 10 gram powder in packet 10 g PO DAILY Qty: 30 0RF sodium bicarbonate 650 mg tablet 650 mg PO BID Qty: 60 0RF lidocaine [Aspercreme (lidocaine)] 4 % adhesive patch,medicated 1 patch topical DAILY PRN (Reason: pain) Qty: 30 0RF ferrous sulfate [Feosol] 325 mg (65 mg iron) tablet 325 mg PO DAILY ketoconazole 2 % shampoo topical triamcinolone acetonide 0.1 % ointment topical PRN omeprazole 20 mg capsule,delayed release(DR/EC) 20 mg PO DAILY Coricidin HBP Chest Ezra-Cough 10-200 mg capsule 1 tab-cap PO Q8H Interventions: ED Discharge Assessment Last Done: 11/05/22 23:24 Discharge Date/Time: 11/05/22 23:24
== END 2022-11-05 23:24 | disposition home or self-care (01) ==
PROVIDERS: Physician Assistant; Emergency Provider Internal Medicine; PCP Internal Medicine
DX: K58.9 Irritable bowel syndrome, unspecified (principal); R10.30 Lower abdominal pain, unspecified; I12.9 Hypertensive chronic kidney disease with stage 1 through stage 4 chronic kidney disease, or unspecified chronic kidney disease; N18.32 Chronic kidney disease, stage 3b; F17.210 Nicotine dependence, cigarettes, uncomplicated; Z86.718 Personal history of other venous thrombosis and embolism; Z79.01 Long term (current) use of anticoagulants; Z79.899 Other long term (current) drug therapy
CPT/HCPCS: 36415; 74176; 80053; 83605; 83690; 83735; 85025; 85610; 87040; 87147; 87205; 99211; 99282; 99284

== ENCOUNTER 2022-11-06 10:42 | Outpatient (AMB) | payer MEDICARE, SELFPAY ==
--- NOTE | 2022-11-06 10:43 | A.OFFPC_ITS ---
Intake Visit Reasons: Weakness Allergies lisinopril Allergy (Intermediate, Verified 11/06/22 10:43) hyperkalemia / elevated creatinine Penicillins [PENICILLINS] Allergy (Intermediate, Verified 11/06/22 10:43) SWELLING colchicine Adverse Reaction (Intermediate, Verified 11/06/22 10:43) Diarrhea Tobacco use date assessed: 06/04/22 Fall risk assessment: No Falls in past year Last assessed Fall Risk: 11/06/22 Dental Screening Dental Screen Date: 11/06/22 Did you have a dental visit in the last 12 months?: No Did you have a dental problem in the last 6 months where you did not have access to dental care?: No Was dental information given to patient?: No HPI Weakness HPI Details 71-year-old overweight male smoker with GERD, gout anticardiolipin antibody positive chronic kidney disease Lee's esophagus hypertension last seen in August 2022 patient was advised blood work.. Patient was recently in the ER November 05 with abdominal pain workup has been negative and diagnosis of irritable bowel syndrome was given dicyclomine. Patient also had a fall and on October 23 was in the ER tripped over the rug falling is left-sided deny any loss of consciousness workup has been negative. Another ER visit was in October 04 for feeling weak left leg having difficulty walking noted to have hyperkalemia patient was placed on Lokelma. Patient complains of left hip and left ankle pain earlier September x-ray requested and physical therapy degenerative changes. scheduled for L hip MRI ? avascular necrosis. Patient now complains of weakness of the left arm these events has occurred after that to falling. No swelling no redness patient also noted on the last blood work showing hyperkalemia and that is were Lokelma was given. Blood work yesterday shows potassium still mildly elevated but better BUN those high creatinine is elevated also patient was scheduled to see Nephrology but declined due to feeling weak and rescheduled for end of November. [facility] Medical History (Updated 11/06/22 @ 12:15 by Allyson Haro MD) Annual physical exam Anticardiolipin antibody positive Anxiety Barretts esophagus Cholelithiasis Chronic kidney disease (CKD) stage G3b/A1, moderately decreased glomerular filtration rate (GFR) between 30-44 mL/min/1.73 square meter and albuminuria creatinine ratio less than 30 mg/g GERD (gastroesophageal reflux disease) Gout HTN (hypertension) Mass of hand Osteoarthritis Renal stones Skin cancer Tobacco abuse Surgical History H/O cystoscopy H/O excision of ganglion cyst History of esophagogastroduodenoscopy (EGD) History of tumor Hx of tonsillectomy Family History Mother Breast cancer Arthritis Father No problems noted. Social History Housing: Apartment Alcohol intake: never Patient Tobacco Use Status: Current everyday Tobacco user Tobacco use type: Cigarette Cigarettes Per Day: 10 Years Smoked: 40 e-Cigarette/Vaping Use: Never Used Second Hand Smoke Exposure: No Current occupational status: retired Cognitive needs: No Hearing needs: No Vision needs: No Questionnaire PHQ-9 Over the last 2 weeks, how often have you been bothered by any of the following problems? 1. Little interest or pleasure in doing things: not at all 2. Feeling down, depressed, or hopeless: not at all 3. Trouble falling or staying asleep, or sleeping too much: not at all 4. Feeling tired or having little energy: not at all 5. Poor appetite or overeating: not at all 6. Feeling bad about yourself - or that you are a failure or have let yourself or your family down: not at all 7. Trouble concentrating on things, such as reading the newspaper or watching television: not at all 8. Moving or speaking so slowly that other people could have noticed. Or the opposite - being so fidgety or restless that you have been moving around a lot more than usual: not at all 9. Thoughts that you would be better off or of hurting yourself in some way: not at all Total score: 0 Depression Screening Interpretation: Negative Source: Developed by Drs. Jesus Fox, Fely Schneider, Shant Shukla and colleagues, with an educational angelo from [employer]. Thrive Questionnaire Date Thrive assessed: 06/04/22 AUDIT C Alcohol Use Questionnaire (AUDIT-C) 1. How often do you have a drink containing alcohol?: Monthly or less 2. How many drinks containing alcohol do you have on a typical day when you are drinking?: 1 or 2 3. How often do you have six or more drinks on one occasion?: Never Total Score: 1 JOSE ANGEL-7 AMB Questionnaire JOSE ANGEL-7 Date JOSE ANGEL - 7 assessed: 06/04/22 Source: Developed by Drs. Jesus Fox, Fely Schneider, Shant Shukla and colleagues, with an educational angelo from [employer]. Physical exam (Primary Care) Tobacco/Smoking Status: Tobacco use Status Tobacco use date assessed 06/04/22 11/06/22 10:44 Patient Tobacco Use Status Current everyday Tobacco 11/06/22 10:44 Tobacco use type Cigarette 11/06/22 10:44 e-Cigarette/Vaping Use Never Used 11/06/22 10:44 PHQ-9: PHQ-9 Score PHQ-9: Total score 0 11/06/22 10:44 Depression Screening Interpretation: Negative Thrive Assessment: Date of Thrive Assessment Date Thrive assessed 06/04/22 11/06/22 10:44 Telehealth Telehealth Location of provider rendering services: practice address Location of patient: address on file Patient Identification confirmed using: Name, : Yes Telehealth method: video (Iphone) Patient verbally consented to treatment: Yes Patient verbally consented to billing insurance company: Yes Patient informed of any privacy concerns related to visit: Yes Assessment and Plan Assessment & Plan (1) Peripheral vascular disease: Code(s): I73.9 - Peripheral vascular disease, unspecified Plan: When sitting down elevate the legs, exercise, and support stockings (2) Gout: Comment: Allopurinol: November 2021 to present. Code(s): M10.9 - Gout, unspecified Plan: Keep well hydrated (3) Tobacco abuse: Code(s): Z72.0 - Tobacco use Plan: Strongly advised to stop ! (4) GERD (gastroesophageal reflux disease): Code(s): K21.9 - Gastro-esophageal reflux disease without esophagitis Plan: Avoid the foods that causes that usually spicy foods, tomato products, juices, coffee, soda and foods that your sensitive to. After eating do not lie down, allow 3-4 hours before in lie down. And keep the head of bed above 30 degrees to avoid the acid from going up. (5) Chronic kidney disease (CKD) stage G3b/A1, moderately decreased glomerular filtration rate (GFR) between 30-44 mL/min/1.73 square meter and albuminuria creatinine ratio less than 30 mg/g: Code(s): N18.32 - Chronic kidney disease, stage 3b Plan: Keep well hydrated avoid NSAIDs (6) Anticardiolipin antibody positive: Code(s): R76.0 - Raised antibody titer Plan: Continue with anticoagulation (7) Left arm weakness: Code(s): R29.898 - Other symptoms and signs involving the musculoskeletal system Plan: Will order for an x-ray of the left shoulder (8) Left hip pain: Code(s): M25.552 - Pain in left hip Plan: Concern about a vascular necrosis and an MRI has been requested Orders: Orders XR shoulder LT min 2V Today R29.898 - Other symptoms and signs involving the musculoskeletal system Vitamin B12 and Folate Today R29.898 - Other symptoms and signs involving the musculoskeletal system Comprehensive Met. Panel Today R29.898 - Other symptoms and signs involving the musculoskeletal system Ferritin Today R29.898 - Other symptoms and signs involving the musculoskeletal system IRON PROFILE Today R29.898 - Other symptoms and signs involving the musculoskeletal system Magnesium Today R29.898 - Other symptoms and signs involving the musculoskeletal system Phosphorus Today R29.898 - Other symptoms and signs involving the musculoskeletal system Free T4 (Free Thyroxine) Today R29.898 - Other symptoms and signs involving the musculoskeletal system Thyroid Stimulating Hormone Today R29.898 - Other symptoms and signs involving the musculoskeletal system Complete Blood Count Auto Diff Today R29.898 - Other symptoms and signs involving the musculoskeletal system Coding Level of Care Code Tele Est Pt Level 4 (63812) Diagnoses Peripheral vascular disease I73.9 Gout M10.9 Tobacco abuse Z72.0 GERD (gastroesophageal reflux disease) K21.9 Chronic kidney disease (CKD) stage G3b/A1, moderately decreased glomerular filtration rate (GFR) between 30-44 mL/min/1.73 square meter and albuminuria creatinine ratio less than 30 mg/g N18.32 Anticardiolipin antibody positive R76.0 Left arm weakness R29.898 Left hip pain M25.552
== END 2022-11-06 14:17 | disposition home or self-care (01) ==
PROVIDERS: PCP Internal Medicine; Visit Provider Internal Medicine
DX: I73.9 Peripheral vascular disease, unspecified (principal); K21.9 Gastro-esophageal reflux disease without esophagitis; N18.32 Chronic kidney disease, stage 3b; M10.9 Gout, unspecified; Z72.0 Tobacco use; R76.0 Raised antibody titer; R29.898 Other symptoms and signs involving the musculoskeletal system; M25.552 Pain in left hip
CPT/HCPCS: 99214

== ENCOUNTER → 2022-12-26 11:44 | Outpatient (BNVA) | payer MEDICARE, SELFPAY | PROVIDERS: PCP Internal Medicine; Visit Provider Internal Medicine ==

== ENCOUNTER → 2023-01-02 11:27 | Outpatient (BNVA) | payer MEDICARE, SELFPAY | PROVIDERS: PCP Internal Medicine; Visit Provider Internal Medicine ==

== ENCOUNTER → 2023-01-07 15:37 | Outpatient (BNVA) | payer MEDICARE, SELFPAY | PROVIDERS: PCP Internal Medicine; Visit Provider Internal Medicine ==

== ENCOUNTER → 2023-01-11 15:15 | Outpatient (BNVA) | payer MEDICARE, SELFPAY | PROVIDERS: PCP Internal Medicine; Visit Provider Internal Medicine ==

== ENCOUNTER 2023-01-16 08:37 | Outpatient (AMB) | payer MEDICARE, SELFPAY ==
--- NOTE | 2023-01-16 08:40 | MHC.OFFVIS ---
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 States he has fallen multiple times, last ana was about 2 week ago. States he landed on his right side but has pain in his left side from his leg to his arm. Patient states he has groin pain that comes and goes. Reports he is in a wheelchair due to left side weakness. Hx of a spinal cord tumor which was removed with radiation 49-40 years ago. Allergies lisinopril Allergy (Intermediate, Verified 01/16/23 08:49) hyperkalemia / elevated creatinine Penicillins [PENICILLINS] Allergy (Intermediate, Verified 01/16/23 08:49) SWELLING colchicine Adverse Reaction (Intermediate, Verified 01/16/23 08:49) Diarrhea Medication List - Last Reconciled 01/16/23 by Freida Leyva MD allopurinol 100 mg PO DAILY alprazolam 0.25 mg PO DAILY dextromethorphan-guaifenesin 10-200 mg (Coricidin HBP Chest Congestion-Cough) 1 tab-cap PO Q8H diclofenac sodium 1% (Arthritis Pain (diclofenac)) 2 grams topical QID PRN dicyclomine 20 mg PO TID PRN diltiazem HCl 240 mg PO DAILY famotidine 40 mg PO DAILY ferrous sulfate (Feosol) 325 mg PO DAILY ketoconazole 2% topical lidocaine 4% (Aspercreme (lidocaine)) 1 patch topical DAILY PRN omeprazole 20 mg PO DAILY sodium bicarbonate 650 mg PO BID sodium zirconium cyclosilicate (Lokelma) 10 grams PO DAILY [toilet seat As directed] triamcinolone acetonide 0.1% topical PRN warfarin 6 mg See Protocol PO DAILY [wheelchair As directed] HPI HPI Comments History of Present Illness Details Per PCP's note, patient has history of GERD, gout, anticardiolipin antibody, chronic kidney disease, Lee's esophagus and hypertension. He is also on coumadin for history of DVT. He also recently saw Rheumatology for gout. 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 But since then, he has remained ambulatory and functional. Starting in March, he started to fall and noted weakness on left leg. He fell again in September which eventually led to admission to [facility] from 11/28-12/02. From there, he was transferred to [facility], discharged from there 12/20. He remains mainly WC bound despite VNA, home PT and OT. He was referred to us for left hip pain. He has an MRI of left hip last 11/12 which was read as scattered T2 bright medullary lesions in the bony pelvis, non specific, cannot rule out malignancy . MRI non contrast was recommended but has not been done. Review of [facility] notes - either plain xrays or CT done to cervical and head, which reported as no acute finding . Lumbar xray read as DISH . He says left leg is completely weak and numb. Right leg is stronger but also weak. He is unable to lift both arms above chest. He complains of lower back pain, mid to left. He denies left groin pain. [facility] Medical History (Updated 01/16/23 @ 10:19 by Freida Leyva MD) Degenerative joint disease (DJD) of hip Annual physical exam Skin cancer Gout Tobacco abuse GERD (gastroesophageal reflux disease) Anxiety Anticardiolipin antibody positive Cholelithiasis Chronic kidney disease (CKD) stage G3b/A1, moderately decreased glomerular filtration rate (GFR) between 30-44 mL/min/1.73 square meter and albuminuria creatinine ratio less than 30 mg/g Barretts esophagus Osteoarthritis Mass of hand Renal stones HTN (hypertension) Surgical History History of esophagogastroduodenoscopy (EGD) History of tumor H/O excision of ganglion cyst H/O cystoscopy Hx of tonsillectomy Family History Mother Breast cancer Arthritis Father No problems noted. Social History Housing: Apartment Alcohol intake: never Patient Tobacco Use Status: Current everyday Tobacco user Tobacco use type: Cigarette Cigarettes Per Day: 10 Years Smoked: 40 e-Cigarette/Vaping Use: Never Used Second Hand Smoke Exposure: No Current occupational status: retired Cognitive needs: No Hearing needs: No Vision needs: No Review of Systems Const All systems reviewed & are unremarkable except as noted in HPI and below Physical Exam Vital Signs: BMI result Body Mass Index 27.1 Constitutional: Patient appears to be in no acute distress, well nourished and well developed. Patient was appropriately conversant and oriented. Good historian. He is poorly groomed, on wheelchair. MSK: Inspection reveals appropriate head and neck positioning. No pain with palpation over the neck musculature. Tender on lumbar paraspinals and left GT. Negative pain on left fabere. No pain with slump sit. Patient remained on WC. Cervical ROM was full. Spurling's sign negative. No increased tone noted. Neurological: Less than 2/5 on BUE. Proximal muscles appear weaker than distal. 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 RLE at least 4-/5 proximally, 3-/5 on dorsiflexion. LLE 2/5 only, left foot drop, worse than right. No spasticity or hyperreflexia. Negative davis. Results Reviewed Results Reviewed: As above Assessment & Plan Assessment & Plan (1) Cervical spinal cord compression: Code(s): G95.20 - Unspecified cord compression Plan: I am concerned that he presents with weakness of both upper and lower extremities, left worse than right. This has developed gradually since March, manifesting as frequent falls. Plain xrays done at [facility] did not report fracture cervical and no acute on head. But I am still concerned for possible cervical spinal cord compression. It is very reasonable to obtain cervical MRI without contrast KAIT. Our office will work on getting this approved and scheduled. Patient and family understands that we need to rule this out as a priority before we further evaluate other complaints. (2) Left-sided weakness: Code(s): R53.1 - Weakness Plan: Await MRI results. We may also need EMG and neurology consult. (3) Degenerative joint disease (DJD) of hip: Code(s): M16.9 - Osteoarthritis of hip, unspecified Qualifiers: Osteoarthritis type: primary Laterality: left Qualified Code(s): M16.12 - Unilateral primary osteoarthritis, left hip Plan: Recent MRI left hip could not completely rule out malignancy. He will need another MRI non contrast, which will have to wait until we rule out more worrisome issue of cervical spine pathology. Plan They do not help with transportation and mobility at home. As of now, they still have VNA, home PT and OT. Assessment and plan discussed with patient, and patient was agreeable. All questions were answered thoroughly. Follow-up after MRI results. Freida Leyva MD, [place]CR[place] Board Certified, [place] Board [employer] and Rehabilitation (ABPMR) Board Certified, [place] Board of Electrodiagnostic Medicine (ABEM) Orders: Orders MR cervical spine wo con Today G95.20 - Unspecified cord compression, R53.1 - Weakness Coding Level of Care Code New Pt Level 4 (15739) Diagnoses Cervical spinal cord compression G95.20 Left-sided weakness R53.1 Primary osteoarthritis of left hip M16.12 Osteoarthritis type: primary Laterality: left
[2023-01-16 08:41] VITALS: BMI 27.1
== END 2023-01-16 10:18 | disposition home or self-care (01) ==
PROVIDERS: PCP Internal Medicine; Visit Provider Physical Medicine & Rehabilitation
DX: G95.20 Unspecified cord compression (principal); R53.1 Weakness; M16.12 Unilateral primary osteoarthritis, left hip
CPT/HCPCS: 99204

== ENCOUNTER → 2023-01-16 08:37 | Outpatient (BNVA) | payer MEDICARE, SELFPAY | PROVIDERS: PCP Internal Medicine; Visit Provider Physical Medicine & Rehabilitation ==

== ENCOUNTER → 2023-01-17 14:35 | Outpatient (BNVA) | payer MEDICARE, SELFPAY | PROVIDERS: PCP Internal Medicine; Visit Provider Internal Medicine ==

== ENCOUNTER → 2023-01-24 13:39 | Outpatient (BNVA) | payer MEDICARE, SELFPAY | PROVIDERS: PCP Internal Medicine; Visit Provider Internal Medicine ==

== ENCOUNTER 2023-01-26 13:46 | Emergency (ER) | payer MEDICARE, SELFPAY ==
--- NOTE | ~2023-01-26 | MR_ITS ---
EXAMINATION: MR CERVICAL SPINE WITHOUT CONTRAST CLINICAL INFORMATION: Bilateral weakness. Question central cord lesion. COMPARISON: No relevant prior imaging. TECHNIQUE: MRI of the cervical spine was obtained using routine sequences without contrast. FINDINGS: Patient motion degrades image quality therefore the diagnostic accuracy of this examination is limited. No foraminal patency cannot be accurately assessed. Cord signal intensity cannot be accurately assessed. Alignment is normal. Vertebral body heights are preserved. There are mixed type II and type III degenerative endplate changes at multiple levels. Although suboptimally assessed on this examination there appear to be bridging disc osteophyte complexes that fuse the C5-C7 vertebra. There is loss of intervertebral disc height and T2 signal intensity at multiple levels related to disc degeneration. The cervicomedullary junction is normal. Limited visualization of the posterior fossa reveals no abnormal. The occipital condyles and lateral C1 masses are intact. There is degenerative arthrosis of the atlantodental joint. C1-C2 articular facets are unremarkable. At C2-C3 the annular contour is normal. No canal stenosis. At C3-C4 there is a bulging disc and buckling of ligament level causing at least mild canal stenosis. No cord compression. At C4-C5 there is a bulging disc and buckling of the ligamenta flava causing at least moderate canal stenosis. Cord signal intensity is normal well assessed on this examination due to patient motion. Uncovertebral joint spurring and congestion with facet degenerative change causes moderate to severe neuroforaminal encroachment. At C5-C6 there is at least mild canal stenosis. At C6-C7 there is at least mild canal stenosis. At C7-T1 there is a bulging disc. Bilateral facet degenerative change with buckling of ligamenta flava. Mild canal stenosis. There is at least mild bilateral neuroforaminal encroachment. Visualized soft tissues of the neck are unremarkable. Vascular flow voids are maintained. MR/MR cervical spine wo con IMPRESSION: Patient motion degrades image quality therefore the diagnostic accuracy of this examination is limited. Cord signal intensity and neuroforaminal patency therefore cannot be accurately assessed on the basis of this examination. There is multilevel degenerative spondylosis of the cervical spine. There appear to be bridging disc osteophyte complexes that fuse the C5-C7 vertebra. Consequently there is adjacent segment spondylosis above the fused segments at the level of C4-C5 where there is at least moderate canal stenosis. Mild canal stenosis at multiple additional levels.
--- NOTE | ~2023-01-26 | MR_ITS ---
EXAMINATION: MR CERVICAL SPINE WITHOUT CONTRAST CLINICAL INFORMATION: Bilateral weakness. Concern for cord compression. COMPARISON: Cervical spine MRI 01/26/2023. TECHNIQUE: MRI of the cervical spine was obtained using routine sequences without contrast. FINDINGS: Alignment is normal. Vertebral body heights are preserved. There are mixed type II and type III degenerative endplate changes at multiple levels. Bridging disc osteophyte complexes fuse the C5 and C6 vertebra. There is loss of intervertebral disc height and T2 signal intensity at multiple levels related to disc degeneration. The cervicomedullary junction is normal. Limited visualization of the posterior fossa reveals no abnormal finding. The occipital condyles and lateral C1 masses are intact. There is degenerative arthrosis of the atlantodental joint. C1-C2 articular facets are unremarkable. At C2-C3 the annular contour is normal. No canal stenosis. No neuroforaminal encroachment. At C3-C4 there is a bulging disc and buckling of ligament level causing mild canal stenosis. No cord compression or abnormal intramedullary signal changes. Uncovertebral joint spurring and facet degenerative change causes severe right and moderate left neuroforaminal encroachment. At C4-C5 there is a bulging disc and buckling of ligamenta flava. Moderate canal stenosis with AP flattening of the cord contour. Uncovertebral joint spurring injection with facet degenerative change causes severe bilateral neuroforaminal encroachment. At C5-C6 there is moderate canal stenosis. Uncovertebral joint spurring and facet degenerative change causes moderate bilateral neuroforaminal encroachment. At C6-C7 there is mild canal stenosis. Uncovertebral joint spurring and facet degenerative change causes moderate bilateral neuroforaminal encroachment. At C7-T1 there is a bulging disc. Bilateral facet degenerative change with buckling of ligamenta flava. Moderate canal stenosis. Uncovertebral joint spurring and facet degenerative change causes moderate bilateral neuroforaminal encroachment. Visualized soft tissues of the neck are normal. Vascular flow voids are grossly maintained. MR/MR cervical spine wo con IMPRESSION: There is multilevel degenerative spondylosis of the cervical spine. Bridging disc osteophyte complexes fuse the C5 and C6 vertebra. There is junctional spondylosis above and below the fused segments with moderate canal stenosis at C4-C5, C5-C6, and C7-T1. Mild canal stenosis at C3-C4 and C6-C7. No overt cord compression and no abnormal intramedullary signal changes. There are varying degrees of neuroforaminal encroachment related to uncovertebral joint spurring and facet degenerative change as described above.
[2023-01-26 13:50] VITALS: BP 132/84; BP 142/77; PULSE 60; PULSE 73; RESP 18; TEMP 36.8; O2SAT 100; O2SAT 99; BMI 24.3
--- NOTE | 2023-01-26 14:03 | ED_ITS ---
HPI - Weakness General Chief complaint: Weakness Stated complaint: NEEDS AN MRI Time Seen by Provider: 01/26/23 14:03 Source: patient Mode of arrival: EMS Limitations: no limitations History of Present Illness HPI Narrative: Patient is 72 years old with history of GERD gout anti cardiolipin antibodies CKD Lee's esophagus hypertension DVT on Coumadin with history of lumbar spinal cord tumor removed about 40 years old been having pain in left hip area for last few months had MRI done of the left hip on 11/12 the which showed nonspecific lesions on the bony pelvis cannot rule out malignancy patient was seen by Physiatry on 01/16 with suspected possible cervical cord stenosis for both upper and lower extremity weakness left worse than the right advised MRI as outpatient which they are working on it patient comes here to get MRI in the ER Related Data Home Medications Medication Instructions Recorded Confirmed ferrous sulfate 325 mg (65 mg 325 mg PO DAILY 03/22/20 01/26/23 iron) tablet (Feosol) omeprazole 20 mg capsule,delayed 20 mg PO DAILY 01/10/22 01/26/23 release dextromethorphan-guaifenesin 10 1 tab-cap PO Q8H PRN 08/02/22 01/26/23 mg-200 mg capsule (Coricidin HBP congestion/cough Chest Congestion-Cough) warfarin 6 mg tablet See Protocol PO DAILY 01/26/23 01/26/23 Previous Rx's Medication Instructions Recorded toilet seat #1 ea 09/27/22 sodium bicarbonate 650 mg tablet 650 mg PO BID #60 tabs 10/04/22 wheelchair #1 ea 12/24/22 allopurinol 100 mg tablet 100 mg PO DAILY #90 tabs 12/28/22 diltiazem HCl 240 mg 240 mg PO DAILY #90 caps 01/11/23 capsule,extended release 24 hr Allergies Allergy/AdvReac Type Severity Reaction Status Date / Time lisinopril Allergy Intermediate hyperkalemia Verified 01/24/23 13:40 / elevated creatinine Penicillins [PENICILLINS] Allergy Intermediate SWELLING Verified 01/24/23 13:40 colchicine AdvReac Intermediate Diarrhea Verified 01/24/23 13:40 Review of Systems 2 Review of Systems: Yes all other systems are reviewed and are negative PMFSH Past Medical History Medical History Degenerative joint disease (DJD) of hip Annual physical exam Skin cancer Gout Tobacco abuse GERD (gastroesophageal reflux disease) Anxiety Anticardiolipin antibody positive Cholelithiasis Chronic kidney disease (CKD) stage G3b/A1, moderately decreased glomerular filtration rate (GFR) between 30-44 mL/min/1.73 square meter and albuminuria creatinine ratio less than 30 mg/g Barretts esophagus Osteoarthritis Mass of hand Renal stones HTN (hypertension) Surgical History History of esophagogastroduodenoscopy (EGD) History of tumor H/O excision of ganglion cyst H/O cystoscopy Hx of tonsillectomy Family History Family History Mother Breast cancer Arthritis Father No problems noted. Social History Social History Housing: Apartment Alcohol intake: never Patient Tobacco Use Status: Current everyday Tobacco user Tobacco use type: Cigarette Cigarettes Per Day: 10 Years Smoked: 40 Smoked in Last 30 Days: No e-Cigarette/Vaping Use: Never Used Second Hand Smoke Exposure: No Use of substances other than those prescribed or required for medical reasons: No Advance Directives: Yes Advance Directives on File: Yes Advance Directives Date on File: 12/24/22 Current occupational status: retired Cognitive needs: No Hearing needs: No Vision needs: No Physical Exam 2 Vital Signs: Vital Signs: Last Vital Signs Temp 97.7 F 01/27/23 06:00 Pulse 72 01/27/23 06:00 Resp 14 01/27/23 14:11 BP 116/65 01/27/23 14:11 Pulse Ox 96 01/27/23 14:12 O2 Del Method Nasal Cannula 01/27/23 14:12 O2 Flow Rate 2 01/27/23 14:12 BMI result Body Mass Index 24.3 Appearance: Alert. Oriented X3. No acute distress. Eyes: PERRLA, No Nystagmus ENT: Pharynx normal. Oral Mucosa moist Neck: Normal inspection. Neck supple. CVS: Normal heart rate and rhythm. Pulses normal. Respiratory: No respiratory distress. Equal air entry bilateral, no wheezing/rales/rhonchi Abdomen: Soft and nontender. Bowel sounds are present, no mass palpable, no CVA tenderness Skin: Skin warm and dry. Normal skin color. Normal skin turgor. Extremities: No lower extremity edema. No calf tenderness Neuro: Oriented X 3. Bilateral both upper and lower extremity weakness left more than the right proximal more than the disc deep tendon reflexes decreased bilateral Course Reevaluation(s) Reevaluation #1: physician observation continued. patient's MRI yesterday significant motion degradation. plan to repeat today w/ additional sedation for claustrophobia. IV dilaudid and IV versed given for MRI. if unsuccessful may need to attempt w/ ketamine or anesthesia? will continue to monitor. Time: 14:14 Medications Administered Discontinued Medications Generic Name Dose Route Start Last Admin Trade Name Freq PRN Reason Stop Dose Admin Dexamethasone Sodium Phosphate 10 mg 01/26/23 16:37 01/26/23 17:55 Dexamethasone Sod Phosphate 10 Mg/Ml Vial IVPUSH 01/26/23 16:38 10 mg ONCE ONE Administration Hydromorphone HCl 0.5 mg 01/27/23 13:00 01/27/23 13:35 Hydromorphone Hcl 0.5 Mg/0.5 Ml Syringe IVPUSH 01/27/23 13:01 0.5 mg ONCE ONE Administration Protocol Lorazepam 2 mg 01/26/23 15:05 01/26/23 16:10 Lorazepam 2 Mg/Ml Vial IVPUSH 01/26/23 15:06 2 mg ONCE ONE Administration Midazolam HCl 2 mg 01/27/23 13:00 01/27/23 13:35 Midazolam Hcl/Pf 2 Mg/2 Ml Vial IVPUSH 01/27/23 13:01 2 mg ONCE ONE Administration Midazolam HCl 2 mg 01/27/23 13:52 01/27/23 14:11 Midazolam Hcl/Pf 2 Mg/2 Ml Vial IVPUSH 01/27/23 13:53 2 mg ONCE ONE Administration Medical Decision Making Medical Decision Making MDM Narrative: Patient with proximal weakness for last few months suspected to have cervical central cord lesion or possible polymyalgia rheumatica with proximal weakness and elevated sed rate MRI is pending If MRI negative maybe steroid trial warranted - I received sign-out from Dr. Xiong -Dr. Xiong suspects that the patient has polymyalgia rheumatica given the patient's symptoms and high ESR/CRP - the MRI is inconclusive Due to motion. It is possible that the MRI needs to be repeated, can be done in the morning. Patient's symptoms have been present for 3 months. 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 - Patient will be evaluated by Physical therapy and Case Management in the morning. Patient states that he has physical therapy at home, yet his condition keeps declining. - I discussed the patient with Dr. Walton, at this time, there is no reason to admit the patient, patient can follow up with Rheumatology and primary care physician. - Patient and agree to be evaluated by case management and PT in the morning. Is possible that MRI will be repeated. Differential Diagnosis Differential Diagnoses: The differential diagnosis associated with the presentation includes ( Cervical spine stenosis, polymyalgia rheumatica) Admission/Observation Consideration of admission/observation: Escalation of care including admission/observation considered ( patient will remain under observation in the emergency room until tomorrow for pt/cm) Lab Data MDM Lab Attestation statement: I reviewed the patient's lab results. 01/27/23 06:30 01/26/23 15:31 Labs: Lab Results 01/26/23 01/26/23 01/26/23 Range/Units 14:46 15:09 15:31 WBC 6.2 (4.8-10.8) X10*3/uL RBC 3.69 L (4.60-5.80) X10*6/uL Hgb 10.7 L (14.0-18.0) g/dl Hct 33.2 L (42.0-52.0) % MCV 90.0 (80.0-98.0) fL MCH 29.0 (27.0-33.0) pg MCHC 32.2 (31.0-36.0) g/dl RDW 14.9 (11.0-16.0) % Plt Count 196 (160-400) X10*3/uL MPV 10.3 (9.4-12.4) fL Immature Gran % (Auto) 0.5 H (0.0-0.4) % Neut % (Auto) 69.3 (45-73) % Lymph % (Auto) 19.2 L (20-40) % Blackford % (Auto) 9.7 (2-11) % Eos % (Auto) 0.8 (0-4) % Baso % (Auto) 0.5 (0-2) % Lymph # (Auto) 1.2 (1.2-4.9) X10*3/uL Blackford # (Auto) 0.6 (0.1-1.2) X10*3/uL Eos # (Auto) 0.1 (0.0-0.4) X10*3/uL Baso # (Auto) 0.0 (0.0-0.2) X10*3/uL Abs Immat Gran (auto) 0.03 (0.00-0.03) X10*3/uL Absolute Neuts (auto) 4.3 (2.0-8.3) x10*3/uL Absolute Nucleated RBC 0.000 (0.0-0.012) X10*3/uL Nucleated RBC % (auto) 0.0 (0.0-0.2) /100WBC ESR 91 H (0-15) MM/HR PT (11.1-13.3) SEC INR (0.9-1.1) Sodium 141 (135-145) mmol/L Potassium 4.1 D (3.3-5.1) mmol/L Chloride 109 H (96-108) mmol/L Carbon Dioxide 22 (22-29) mmol/L Anion Gap 14 (12-20) BUN 35 H (9-16) mg/dL Creatinine 1.59 H (0.5-1.4) mg/dL Estim Creat Clear Calc 40.6 Estimated GFR 43 Random Glucose 83 (60-115) mg/dL Calcium 9.7 (8.4-10.2) mg/dL Magnesium 1.9 (1.6-2.6) mg/dL Total Bilirubin 0.7 (0.0-1.0) mg/dL AST 14 (5-37) U/L ALT 8 (0-40) U/L Alkaline Phosphatase 97 (39-117) U/L Total Creatine Kinase 127 (38-174) U/L Total Protein 7.3 (6.5-8.0) g/dL Albumin 3.2 L (3.5-5.0) g/dL COVID-19 (RAJENDRA) Negative (Negative) COVID-19 Clin Com See Note 01/27/23 01/27/23 Range/Units 06:29 06:30 WBC 4.4 L (4.8-10.8) X10*3/uL RBC 3.54 L (4.60-5.80) X10*6/uL Hgb 10.3 L (14.0-18.0) g/dl Hct 32.4 L (42.0-52.0) % MCV 91.5 (80.0-98.0) fL MCH 29.1 (27.0-33.0) pg MCHC 31.8 (31.0-36.0) g/dl RDW 14.6 (11.0-16.0) % Plt Count 174 (160-400) X10*3/uL MPV 10.3 (9.4-12.4) fL Immature Gran % (Auto) (0.0-0.4) % Neut % (Auto) (45-73) % Lymph % (Auto) (20-40) % Blackford % (Auto) (2-11) % Eos % (Auto) (0-4) % Baso % (Auto) (0-2) % Lymph # (Auto) (1.2-4.9) X10*3/uL Blackford # (Auto) (0.1-1.2) X10*3/uL Eos # (Auto) (0.0-0.4) X10*3/uL Baso # (Auto) (0.0-0.2) X10*3/uL Abs Immat Gran (auto) (0.00-0.03) X10*3/uL Absolute Neuts (auto) (2.0-8.3) x10*3/uL Absolute Nucleated RBC 0.000 (0.0-0.012) X10*3/uL Nucleated RBC % (auto) 0.0 (0.0-0.2) /100WBC ESR (0-15) MM/HR PT 30.2 H (11.1-13.3) SEC INR 2.5 H (0.9-1.1) Sodium (135-145) mmol/L Potassium (3.3-5.1) mmol/L Chloride (96-108) mmol/L Carbon Dioxide (22-29) mmol/L Anion Gap (12-20) BUN (9-16) mg/dL Creatinine (0.5-1.4) mg/dL Estim Creat Clear Calc Estimated GFR Random Glucose (60-115) mg/dL Calcium (8.4-10.2) mg/dL Magnesium (1.6-2.6) mg/dL Total Bilirubin (0.0-1.0) mg/dL AST (5-37) U/L ALT (0-40) U/L Alkaline Phosphatase (39-117) U/L Total Creatine Kinase (38-174) U/L Total Protein (6.5-8.0) g/dL Albumin (3.5-5.0) g/dL COVID-19 (RAJENDRA) (Negative) COVID-19 Clin Com Radiology Impression Discussion of test interpretation with radiology: I have reviewed the radiologist's reading. Radiologist Impression: IMPRESSION: Patient motion degrades image quality therefore the diagnostic accuracy of this examination is limited. Cord signal intensity and neuroforaminal patency therefore cannot be accurately assessed on the basis of this examination. There is multilevel degenerative spondylosis of the cervical spine. There appear to be bridging disc osteophyte complexes that fuse the C5-C7 vertebra. Consequently there is adjacent segment spondylosis above the fused segments at the level of C4-C5 where there is at least moderate canal stenosis. Mild canal stenosis at multiple additional levels. Critical Care Time Critical Care Time Critical Care Time: Yes Total Critical Care Time: 60 Attestation: I have personally provided critical care time. Time includes review of lab data, radiology results, discussion with consultants, and monitoring for potential decompensation. Intervention performed as documented. Discharge Plan Discharge Clinical Impression: Weakness, Polymyalgia rheumatica syndrome Patient Disposition: Still a Patient Prescriptions: No Action (DME) toilet seat See Rx Instructions .Route .MEDSUPPLY Qty: 1 0RF Rx Instructions: As directed (DME) wheelchair See Rx Instructions .Route .MEDSUPPLY Qty: 1 0RF Rx Instructions: As directed allopurinol 100 mg tablet 100 mg PO DAILY Qty: 90 1RF diltiazem HCl 240 mg capsule,extended release 24hr 240 mg PO DAILY Qty: 90 2RF sodium bicarbonate 650 mg tablet 650 mg PO BID Qty: 60 0RF warfarin 6 mg tablet See Protocol PO DAILY Protocol: Dose Management Condition: Saturday (Week One) Dose/Route: 3 mg Instruction: 0.5 x 6 mg tablets Condition: Saturday Dose/Route: 6 mg Instruction: 1 x 6 mg tablet Condition: Saturday Dose/Route: 3 mg Instruction: 0.5 x 6 mg tablets Condition: Saturday Dose/Route: 6 mg Instruction: 1 x 6 mg tablet Condition: Dose/Route: 0 mg Instruction: 0 tablets Condition: Saturday Dose/Route: 3 mg Instruction: 0.5 x 6 mg tablets Condition: Saturday Dose/Route: 3 mg Instruction: 0.5 x 6 mg tablets Condition: Saturday (Week Two) Dose/Route: 3 mg Instruction: 0.5 x 6 mg tablets Condition: Saturday Dose/Route: 6 mg Instruction: 1 x 6 mg tablet Condition: Saturday Dose/Route: 3 mg Instruction: 0.5 x 6 mg tablets Condition: Saturday Dose/Route: 3 mg Instruction: 0.5 x 6 mg tablets Condition: Dose/Route: 3 mg Instruction: 0.5 x 6 mg tablets Condition: Saturday Dose/Route: 3 mg Instruction: 0.5 x 6 mg tablets Condition: Saturday Dose/Route: 3 mg Instruction: 0.5 x 6 mg tablets Protocol Text: Adjustment Start Date: 01/24/23 INR Value: 3.8 INR Date: 01/24/23 Additional Instructions: EAT GREENS TODAY AND WEEKLY ferrous sulfate [Feosol] 325 mg (65 mg iron) tablet 325 mg PO DAILY omeprazole 20 mg capsule,delayed release(DR/EC) 20 mg PO DAILY Coricidin HBP Chest Ezra-Cough 10-200 mg capsule 1 tab-cap PO Q8H PRN (Reason: congestion/cough)
[2023-01-26 14:37] VITALS: BP 127/63; PULSE 50; RESP 18; O2SAT 98
[2023-01-26 15:03] LABS: COVID-19 Test Negative (Negative); IDNOW Serial# BCCEAD1C
[2023-01-26 15:10] VITALS: BP 118/63; PULSE 51; RESP 12; O2SAT 97
[2023-01-26 15:14] LABS: MANUAL DIFF FLAG NO
[2023-01-26 15:15] LABS: Basophils Percent Auto 0.5 % (0-2); Eosinophils Absolute Auto 0.1 X10*3/uL (0.0-0.4); Eosinophils Percent Auto 0.8 % (0-4); Hematocrit 33.2 % (42.0-52.0); Hemoglobin 10.7 g/dl (14.0-18.0); Imm Gran Abs Auto 0.03 X10*3/uL (0.00-0.03); Imm Gran Pct Auto 0.5 % (0.0-0.4); Lymphocytes Absolute Auto 1.2 X10*3/uL (1.2-4.9); Lymphocytes Percent Auto 19.2 % (20-40); Mean Corpuscular HGB Conc 32.2 g/dl (31.0-36.0); Mean Platelet Volume 10.3 fL (9.4-12.4); Monocytes Absolute Auto 0.6 X10*3/uL (0.1-1.2); Monocytes Percent Auto 9.7 % (2-11); Neutrophils Absolute Auto 4.3 x10*3/uL (2.0-8.3); Neutrophils Percent Auto 69.3 % (45-73); Platelet Count 196 X10*3/uL (160-400); Red Blood Count 3.69 X10*6/uL (4.60-5.80); Red Cell Distribution Width 14.9 % (11.0-16.0); White Blood Count 6.2 X10*3/uL (4.8-10.8)
[2023-01-26 15:59] LABS: Erythrocyte Sedimentation Rate 91 MM/HR (0-15)
[2023-01-26 15:59] LABS: Alanine Aminotransferase 8 U/L (0-40); Albumin Level 3.2 g/dL (3.5-5.0); Alkaline Phosphatase 97 U/L (39-117); Anion Gap 14 (12-20); Aspartate Amino Transferase 14 U/L (5-37); Bilirubin Total 0.7 mg/dL (0.0-1.0); Blood Urea Nitrogen 35 mg/dL (9-16); Calcium 9.7 mg/dL (8.4-10.2); Carbon Dioxide 22 mmol/L (22-29); Chloride 109 mmol/L (96-108); Creatinine Clr Calc Pharmacy 40.6; Estimated Glomerular Filt Rate 43; Glucose Random 83 mg/dL (60-115); Magnesium 1.9 mg/dL (1.6-2.6); Potassium 4.1 mmol/L (3.3-5.1); Sodium 141 mmol/L (135-145); Total Protein 7.3 g/dL (6.5-8.0)
[2023-01-26] MEDS: LORazepam 2 MG/ML VIAL IVPUSH (16:10)
[2023-01-26 16:13] VITALS: BP 130/88; PULSE 53; RESP 16
[2023-01-26] MEDS: dexAMETHasone sod phosphate 10 MG/ML VIAL IVPUSH (17:55)
[2023-01-26 19:29] VITALS: BP 137/99; PULSE 55; RESP 15; TEMP 36.6; O2SAT 95
--- NOTE | 2023-01-26 19:58 | PC.NURSE ---
pt continues to rest on stretcher, respirations even and unlabored, skin pwd, alert and oriented x4. Pt verbalizes being hungry, food provided. Pt and family aware of plan of care at this time
[2023-01-26 20:55] VITALS: BP 140/63; PULSE 61; RESP 16; TEMP 36.3; O2SAT 98
--- NOTE | 2023-01-26 20:55 | MHC.EDTECH ---
PATIENT JUST CAME TO OVERFLOW FROM THE MAIN ED ,PT GOT MOVED INTO HOSPITAL BED ,VITALS TAKEN ,PT HAD 2 PUDDING FOR SNACK AND A PAYAM DAVINA .
--- NOTE | 2023-01-26 22:44 | PC.NURSE ---
Report and handoff received from Farzad Palacios ED RN. Patient transported by cardiopulmonary technologist. Transferred to hospital bed. VSS, PT calm and cooperative and in no acute distress. Skin intact. Noted right sided weakness, and difficulty in using both hands. This RN fed PT two puddings, and gingerale provided. This RN spoke with PT's to completed med reconciliation. was able to provide necessary information. She notes pt is able to feed himself. He sits at the end of his bed with a tray table to eat. She reports that PT needs assistance with opening items due to his rheumatoid arthritis. Call raza within reach. Plan of care ongoing.
--- NOTE | 2023-01-27 01:31 | PC.NURSE ---
PT resting quietly. Respireation even and unlabored. PT needing minor reorientation. PT requested and provided gingerale at bedside. Call raza within reach. Plan of care ongoing
--- NOTE | 2023-01-27 04:29 | MHC.EDTECH ---
PATIENT RANG ,WAS HELP TO USE THE URINAL ,VOID 250ML ,FRESH ICE WATER GIVEN ,PT WAS ASSISTED TO DRINK WATER ,,DRANK 120 ML ,PT REFUSED TO WEAR GOWN ,OR TO BE COVERED WITH SHEETS OR BLANKETS ,SAID HE IS COMFORTABLE THE WAY HE IS .
[2023-01-27 06:00] VITALS: BP 141/80; PULSE 72; RESP 16; TEMP 36.5; O2SAT 98
--- NOTE | 2023-01-27 06:31 | MHC.EDTECH ---
0600 ROUNDING DONE ,VITALS TAKEN ,BLOOD DRAWN AND SENT TO LAB .
[2023-01-27 06:36] LABS: Hematocrit 32.4 % (42.0-52.0); Hemoglobin 10.3 g/dl (14.0-18.0); Mean Corpuscular HGB Conc 31.8 g/dl (31.0-36.0); Mean Corpuscular Hemoglobin 29.1 pg (27.0-33.0); Mean Corpuscular Volume 91.5 fL (80.0-98.0); Mean Platelet Volume 10.3 fL (9.4-12.4); Platelet Count 174 X10*3/uL (160-400); Red Blood Count 3.54 X10*6/uL (4.60-5.80); Red Cell Distribution Width 14.6 % (11.0-16.0); White Blood Count 4.4 X10*3/uL (4.8-10.8)
[2023-01-27 06:42] LABS: INTERNATIONAL NORM RATIO 2.5 (0.9-1.1); Prothrombin Time 30.2 SEC (11.1-13.3)
[2023-01-27] MEDS: Midazolam HCl/PF 2 MG/2 ML VIAL IVPUSH ×2 (13:35→14:11)
[2023-01-27] MEDS: HYDROmorphone HCl 0.5 MG/0.5 ML SYRINGE IVPUSH (13:35)
[2023-01-27 14:11] VITALS: BP 116/65; RESP 14; O2SAT 92
[2023-01-27 14:12] VITALS: O2SAT 96
[2023-01-27 15:01] VITALS: BP 124/59; PULSE 64; RESP 18; TEMP 36; O2SAT 96
--- NOTE | 2023-01-27 17:01 | PC.NURSE ---
Pt A/Ox3. RA to b/l hands, states he usually feeds himself at home. Assisted with urinal placement. at bedside. MRI completed this afternoon. Pt given 2mg versed and 0.5 mg dilaudid before exam due to claustrophobia and also reporting some left hip pain. Pt required additional 2mg versed which was admin by ED RN Aletha. Upon arrival back to unit pt vomited x1. VSS. Currently no complaints, eating jello with at bedside
[2023-01-27] MEDS: Ondansetron ODT 4 MG TAB.RAPDIS TRANSLINGU (17:34)
[2023-01-27] MEDS: Warfarin Sodium 3 MG TABLET PO (17:45)
[2023-01-27] MEDS: Sodium Bicarbonate 650 MG TABLET PO (20:59)
[2023-01-27] MEDS: ondansetron HCL 4 MG/2 ML VIAL IVPUSH (21:15)
[2023-01-27 21:46] VITALS: BP 133/74; PULSE 59; RESP 18; TEMP 36; O2SAT 98
[2023-01-28] MEDS: Omeprazole 20 MG CAPSULE.DR PO (05:59)
[2023-01-28 06:04] VITALS: BP 141/61; PULSE 52; RESP 17; TEMP 36.1; O2SAT 98
[2023-01-28 09:55] VITALS: BP 144/77; PULSE 58; RESP 14; TEMP 36.3; O2SAT 98
[2023-01-28] MEDS: Ferrous Sulfate 324 MG TABLET.DR PO (09:56)
[2023-01-28] MEDS: allopurinoL 100 MG TABLET PO (09:56)
[2023-01-28] MEDS: Sodium Bicarbonate 650 MG TABLET PO ×2 (09:56→21:05)
--- NOTE | 2023-01-28 09:59 | PC.NURSE ---
pt repositioned in bed, alert and oriented with respirations even and unlabored. medicated per the MAR, offering no complaints at this time. watching tv, call raza within reach.
[2023-01-28 10:20] LABS: INTERNATIONAL NORM RATIO 2.4 (0.9-1.1); Prothrombin Time 29.6 SEC (11.1-13.3)
--- NOTE | 2023-01-28 12:44 | PC.NURSE ---
pt able to sit up at edge of the bed to eat his lunch, repositioned back into bed at this time watching television, call raza within reach
--- NOTE | 2023-01-28 15:34 | MHC.CM.ED ---
Received case management consult over the weekend. Patient came to the ER d/t diff ambulating. Patient had Cervical Spine MRI which showed multiple levels of degenerative spondylosis and spinal stenosis. Met with patient and Elizabeth in regards to discharge planning. Patient lives with Elizabeth, ambulates with a walker and is active with [facility]. PCP verified. Patient received 3 Pfizer vaccines. Copy of HCP verfied to be on file. Patient was at [facility] in December. Elizabeth feels patient has been doing better at home with [facility] then at rehab. Patient is very upset because he wants to know what's wrong with me before I leave. Patient has been having difficulty ambulating for about a month. Patient has an orthopedic provider that is trying to help figure out why patient is having difficulty ambulating and left leg weakness. Patient is demanding a spinal tap to make sure my cancer isn't back. T/W explained a lumbar puncture would not be appropriate this time. Also explained symptoms have not started overnight and would not be fixed overnight. Patient will return home tomorrow 01/29 at 9am. [facility] booked. [facility] with chart. Patient, Vira Johnson RN and Romana ANDERS aware. [facility] also made aware. Continue to monitor for d/c needs.
--- NOTE | 2023-01-28 16:00 | MHC.EDTECH ---
this pct assumed care of patient at 1500 ,pt was assisted to use the urinal .
--- NOTE | 2023-01-28 18:00 | MHC.EDTECH ---
PATIENT SAT AT THE SIDE OF BED FOR DINNER ,PT NEEDED TO BE ASSISTED WITH MEAL ,ARE 100 % AND DRANK 240 ML FLUIDS ,PT WAS ASSISTED BACK INTO BED ,WARM BLANKET GIVEN ,PT COMFORTABLE WATCHING TELEVISION .
[2023-01-28] MEDS: Warfarin Sodium 6 MG TABLET PO (19:15)
[2023-01-28 19:49] VITALS: BP 131/66; PULSE 63; RESP 16; TEMP 36.1; O2SAT 97
--- NOTE | 2023-01-28 21:54 | PC.NURSE ---
pt assessed, denies any pain, pt need assistance ADL's
--- NOTE | 2023-01-29 03:43 | MHC.EDTECH ---
Pt rang was assisted with urinal ,void 250 ml .
[2023-01-29] MEDS: Omeprazole 20 MG CAPSULE.DR PO (05:38)
[2023-01-29 05:39] VITALS: BP 127/58; PULSE 54; RESP 16; TEMP 36.3; O2SAT 97
--- NOTE | 2023-01-29 05:48 | PC.NURSE ---
pt reported he is upset about not getting his MRI before going home today, will relay this to on coming nurse
[2023-01-29 06:38] LABS: INTERNATIONAL NORM RATIO 2.4 (0.9-1.1); Prothrombin Time 29.5 SEC (11.1-13.3)
--- NOTE | 2023-01-29 06:56 | MHC.EDTECH ---
PT VITALS TAKEN AND PTINR DRAWN AND SENT TO LAB .
[2023-01-29 08:29] VITALS: BP 130/56; PULSE 51; RESP 14; TEMP 36.4; O2SAT 14
[2023-01-29] MEDS: predniSONE 5 MG TABLET 15 MG PO (08:39)
[2023-01-29] MEDS: Ferrous Sulfate 324 MG TABLET.DR PO (08:40)
[2023-01-29] MEDS: dilTIAZem HCL CD 240 MG CAP.ER.DEG PO (08:40)
[2023-01-29] MEDS: Sodium Bicarbonate 650 MG TABLET PO (08:41)
[2023-01-29] MEDS: allopurinoL 100 MG TABLET PO (08:41)
== END 2023-01-29 10:42 | disposition home or self-care (01) ==
PROVIDERS: Emergency Medicine Emergency Medical Services; Physician Assistant; Emergency Provider Internal Medicine; PCP Internal Medicine
DX: R53.1 Weakness (principal); M35.3 Polymyalgia rheumatica; M48.02 Spinal stenosis, cervical region; R53.81 Other malaise; R62.7 Adult failure to thrive; Z68.24 Body mass index [BMI] 24.0-24.9, adult; M16.12 Unilateral primary osteoarthritis, left hip; Z11.52 Encounter for screening for COVID-19; I10 Essential (primary) hypertension; F17.210 Nicotine dependence, cigarettes, uncomplicated; Z86.718 Personal history of other venous thrombosis and embolism; Z79.01 Long term (current) use of anticoagulants
CPT/HCPCS: 36415; 72141; 80053; 82550; 83735; 85025; 85027; 85610; 85652; 87635; 96374; 96375; 96376; 97162; 99284; 99285; J1100; J1170; J2060; J2250; J2405

== ENCOUNTER → 2023-01-31 16:15 | Outpatient (BNVA) | payer MEDICARE, SELFPAY | PROVIDERS: PCP Internal Medicine; Visit Provider Internal Medicine ==

== ENCOUNTER 2023-02-07 10:25 | Outpatient (AMB) | payer MEDICARE, SELFPAY ==
--- NOTE | 2023-02-07 10:31 | A.OFFVIS_ITS ---
Intake Intake Visit Reasons: Ov- Cervical spine MRI review Intake Note: Nhan 72 yr old male presents today in a stretcher for his MRI review of his cervical spine. Allergies lisinopril Allergy (Intermediate, Verified 02/07/23 10:34) hyperkalemia / elevated creatinine Penicillins [PENICILLINS] Allergy (Intermediate, Verified 02/07/23 10:34) SWELLING colchicine Adverse Reaction (Intermediate, Verified 02/07/23 10:34) Diarrhea HPI HPI Comments History of Present Illness Details Per PCP's note, patient has history of GERD, gout, anticardiolipin antibody, chronic kidney disease, Lee's esophagus and hypertension. He is also on coumadin for history of DVT. He had seen Dr. Mckeon, Rheumatology for gout. 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 But since then, he has remained ambulatory and functional. Starting in March, he started to fall and noted weakness on left leg. He fell again in September which eventually led to admission to [facility] from 11/28-12/02. From there, he was transferred to [facility], discharged from there 12/20. He remains mainly WC bound despite VNA, home PT and OT. He was referred to us for left hip pain. He had an MRI non contrast of left hip last 11/12 which was read as scattered T2 bright medullary lesions in the bony pelvis, non specific, cannot rule out malignancy . MRI non contrast was recommended but has not been done yet. Review of [facility] notes - either plain xrays or CT done to cervical and head, which reported as no acute finding . Lumbar xray read as DISH . When I first saw him, he reported left leg as completely weak and numb. Right leg is stronger but also weak. He was unable to lift both arms above chest. He complained of lower back pain, mid to left. He denied left groin pain. I ordered cervical MRI to rule out cervical cord compression given UE and LE weakness. However due to insurance and inabilityh to stand, he could not get this outpatient. He ended up being sent to ER. He was observed overnight in the ER. MRI done, was said to have no significant cord compression. It did show spinal stenosis on my review. ESR was 91. He was discharged with diagnosis of possible PMR, referral to rheumatology. Discharged with [facility]NA. Today comes in stretcher with EMT and . Unable to stand without assisntance. EMT reports weakness left worse than right, assist x1 to stand and transfer. He is mostly bedridden now. Uses bedpan for bowel/bladder. Painful to touch on upper extremities. Left leg remains painful and numb. Right leg remains stronger than left but not by much. [facility] Medical History Degenerative joint disease (DJD) of hip Annual physical exam Skin cancer Gout Tobacco abuse GERD (gastroesophageal reflux disease) Anxiety Anticardiolipin antibody positive Cholelithiasis Chronic kidney disease (CKD) stage G3b/A1, moderately decreased glomerular filtration rate (GFR) between 30-44 mL/min/1.73 square meter and albuminuria creatinine ratio less than 30 mg/g Barretts esophagus Osteoarthritis Mass of hand Renal stones HTN (hypertension) Surgical History History of esophagogastroduodenoscopy (EGD) History of tumor H/O excision of ganglion cyst H/O cystoscopy Hx of tonsillectomy Family History Mother Breast cancer Arthritis Father No problems noted. Social History Housing: Apartment Alcohol intake: never Patient Tobacco Use Status: Current everyday Tobacco user Tobacco use type: Cigarette Cigarettes Per Day: 10 Years Smoked: 40 e-Cigarette/Vaping Use: Never Used Second Hand Smoke Exposure: No Advance Directives Date on File: 01/28/23 Current occupational status: retired Cognitive needs: No Hearing needs: No Vision needs: No Physical Exam Constitutional: Patient appears to be in no acute distress, well nourished and well developed. Patient was appropriately conversant and oriented. Good historian. He is poorly groomed, on stretcher. MSK: Inspection reveals appropriate head and neck positioning. Tender when ranging both shoulders and left hand. Fingers are extended position? Const Orientation/consciousness: oriented to person, oriented to place and oriented to time Neuro Other: shoulder abdcuction - left 1; right 1 elbow flexion - left 2, right 2 wrist exstension - left 2, right 2 finger abdcution - left 2, right 2 hip flexion - left 1, right 2 knee extension - left 1, right 2 dorsiflexion - left 1, right 2 Question davis sign bilateral. Brisk reflexes on BUE but absent on BLE. General: oriented to person, oriented to place and oriented to time Deep tendon reflexes (DTR's): Right triceps reflex intensity grade: 2+, Left triceps reflex intensity grade: 2+, Rt Biceps (C5, C6): 2+, Left biceps reflex intensity grade: 2+, Right brachioradialis reflex intensity grade: 2+, Left brachioradialis reflex intensity grade: 2+, Right patellar reflex intensity grade: 0, Left patellar reflex intensity grade: 0, Right ankle reflex intensity grade: 0 and Left ankle reflex intensity grade: 0 Results Reviewed Results Reviewed: MR CERVICAL SPINE WITHOUT CONTRAST CLINICAL INFORMATION: Bilateral weakness. Concern for cord compression. COMPARISON: Cervical spine MRI 01/26/2023. TECHNIQUE: MRI of the cervical spine was obtained using routine sequences without contrast. FINDINGS: Alignment is normal. Vertebral body heights are preserved. There are mixed type II and type III degenerative endplate changes at multiple levels. Bridging disc osteophyte complexes fuse the C5 and C6 vertebra. There is loss of intervertebral disc height and T2 signal intensity at multiple levels related to disc degeneration. The cervicomedullary junction is normal. Limited visualization of the posterior fossa reveals no abnormal finding. The occipital condyles and lateral C1 masses are intact. There is degenerative arthrosis of the atlantodental joint. C1-C2 articular facets are unremarkable. At C2-C3 the annular contour is normal. No canal stenosis. No neuroforaminal encroachment. At C3-C4 there is a bulging disc and buckling of ligament level causing mild canal stenosis. No cord compression or abnormal intramedullary signal changes. Uncovertebral joint spurring and facet degenerative change causes severe right and moderate left neuroforaminal encroachment. At C4-C5 there is a bulging disc and buckling of ligamenta flava. Moderate canal stenosis with AP flattening of the cord contour. Uncovertebral joint spurring injection with facet degenerative change causes severe bilateral neuroforaminal encroachment. At C5-C6 there is moderate canal stenosis. Uncovertebral joint spurring and facet degenerative change causes moderate bilateral neuroforaminal encroachment. At C6-C7 there is mild canal stenosis. Uncovertebral joint spurring and facet degenerative change causes moderate bilateral neuroforaminal encroachment. At C7-T1 there is a bulging disc. Bilateral facet degenerative change with buckling of ligamenta flava. Moderate canal stenosis. Uncovertebral joint spurring and facet degenerative change causes moderate bilateral neuroforaminal encroachment. Visualized soft tissues of the neck are normal. Vascular flow voids are grossly maintained. MR/MR cervical spine wo con IMPRESSION: There is multilevel degenerative spondylosis of the cervical spine. Bridging disc osteophyte complexes fuse the C5 and C6 vertebra. There is junctional spondylosis above and below the fused segments with moderate canal stenosis at C4-C5, C5-C6, and C7-T1. Mild canal stenosis at C3-C4 and C6-C7. No overt cord compression and no abnormal intramedullary signal changes. There are varying degrees of neuroforaminal encroachment related to uncovertebral joint spurring and facet degenerative change as described above. Assessment & Plan Assessment & Plan (1) Weakness of both legs: Code(s): R29.898 - Other symptoms and signs involving the musculoskeletal system (2) Weakness of both arms: Code(s): R29.898 - Other symptoms and signs involving the musculoskeletal system (3) Calcaneal spur of left foot: Code(s): M77.32 - Calcaneal spur, left foot (4) Cervical spinal stenosis: Code(s): M48.02 - Spinal stenosis, cervical region Plan 72M with gradually progressive weakness since March 2022 with frequent falls. Left hip pain was the start with now loss of strength and sensation on left lower extremity. When I saw him, noted that both upper and lower extremities were weak, proximal worse than distal, left worse than right. MRI cspine did show cervical spinal stenosis. He does have hyperreflexia on BUE. Will loop in Neurosurgery to get their opinion. ER providers thought this is PMR. ESR was 91. We were able to get rheumatology appointment moved to today, and he is going there from here. I am also referring to Neurology to help with diagnosis. EMG/NCS BUE and BLE to rule out neuropathy vs myopathy. Given lower extremity weakness and areflexia, we need to rule out lumbar pathlogy. MRI ordered. Given nonspecific MR non contrast findings on left hip, we need to get MR with contrast. He will need transportation and sedation for the MRIs. Our staff/manager cosmetic are helping coordinate getting these scheduled. and patient understands plan. All other questions answered. Total of 60 minutes spent today including chart review, results review, history taking, physical examination, discussion of assessment and plan, and coordination of care. Freida Leyva MD, [place] Board Certified, [place] [employer] and Rehabilitation (ABPMR) Board Certified, [place] Board [employer] Electrodiagnostic Medicine (ABEM) Orders: Orders NE electromyogram (EMG) Today M25.552 - Pain in left hip, M48.02 - Spinal stenosis, cervical region, R29.898 - Other symptoms and signs involving the musculoskeletal system MR lumbar spine wo con Today M16.9 - Osteoarthritis of hip, unspecified, M25.552 - Pain in left hip, R29.898 - Other symptoms and signs involving the musculoskeletal system MR hip LT w con Today M25.552 - Pain in left hip, M48.02 - Spinal stenosis, cervical region, R29.898 - Other symptoms and signs involving the musculoskeletal system NE nerve conduction velocity Today M25.552 - Pain in left hip, M48.02 - Spinal stenosis, cervical region, R29.898 - Other symptoms and signs involving the musculoskeletal system Referrals Neurosurgery Referral M25.552 - Pain in left hip, M48.02 - Spinal stenosis, cervical region, R29.898 - Other symptoms and signs involving the muscul oskeletal system Neurology Referral M25.552 - Pain in left hip, M48.02 - Spinal stenosis, cervical region, R29.898 - Other symptoms and signs involving the musculoskeletal system Coding Level of Care Code Est Pt Level 5 (63266) Diagnoses Weakness of both legs R29.898 Weakness of both arms R29.898 Calcaneal spur of left foot M77.32 Cervical spinal stenosis M48.02
== END 2023-02-07 11:07 | disposition home or self-care (01) ==
PROVIDERS: PCP Internal Medicine; Visit Provider Physical Medicine & Rehabilitation
DX: R29.898 Other symptoms and signs involving the musculoskeletal system (principal); M77.32 Calcaneal spur, left foot; M48.02 Spinal stenosis, cervical region
CPT/HCPCS: 99214

== ENCOUNTER → 2023-02-07 10:25 | Outpatient (BNVA) | payer MEDICARE, SELFPAY | PROVIDERS: PCP Internal Medicine; Visit Provider Physical Medicine & Rehabilitation | DX: R29.898 Other symptoms and signs involving the musculoskeletal system (principal); M77.32 Calcaneal spur, left foot; M48.02 Spinal stenosis, cervical region | CPT/HCPCS: 99212 ==

== ENCOUNTER 2023-02-07 11:37 | Outpatient (AMB) | payer MEDICARE, SELFPAY ==
--- NOTE | 2023-02-07 11:41 | MHC.OFFVIS ---
Intake Vital Signs 02/07/23 11:46 BP 118/74 Blood Pressure Location Rt brachial Position Sitting Pulse 53 Pulse Source Pulse Oximeter Pulse Oximetry (%) 98 Intake Visit Reasons: OA Intake Note: Pt presents today by ambulance accompanied by his . His stated Ortho couldn't seem him and that's why he's here today because he needs a lot of help. Pt states his arms are very weak and he can not lift them. 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 Accompanied by: Spouse Allergies lisinopril Allergy (Intermediate, Verified 02/07/23 10:34) hyperkalemia / elevated creatinine Penicillins [PENICILLINS] Allergy (Intermediate, Verified 02/07/23 10:34) SWELLING colchicine Adverse Reaction (Intermediate, Verified 02/07/23 10:34) Diarrhea Medication List - Last Reconciled 02/07/23 by Luisito Jackson MD allopurinol 100 mg PO DAILY dextromethorphan-guaifenesin 10-200 mg (Coricidin HBP Chest Congestion-Cough) 1 tab-cap PO Q8H PRN diltiazem HCl 240 mg PO DAILY ferrous sulfate (Feosol) 325 mg PO DAILY omeprazole 20 mg PO DAILY sodium bicarbonate 650 mg PO BID [toilet seat As directed] warfarin See Protocol mg PO DAILY [wheelchair As directed] HPI HPI Comments History of Present Illness Details This is a 72-year-old male who follows up with Rheumatology for history of gout. He was last seen by Vanna Mckeon 05/2022. Patient is here on the stretcher. He is transferred from home via ambulance. Patient's states that over the last year he has had multiple falls with multiple hospital presentations. Per there were no fractures. He has been getting weak. He cannot lift both his arms above his head. It is worse on the left. He also has left hand pain. He also has significant left lower extremity pain. According to patient. The entire left lower extremity hurt. Cannot move it. Denies any symptoms affecting his right lower extremity. Patient has lost 60 lb of weight over the last year mostly due to poor appetite.. There are no fevers or headaches or blurry vision PFSH Medical History Degenerative joint disease (DJD) of hip Annual physical exam Skin cancer Gout Tobacco abuse GERD (gastroesophageal reflux disease) Anxiety Anticardiolipin antibody positive Cholelithiasis Chronic kidney disease (CKD) stage G3b/A1, moderately decreased glomerular filtration rate (GFR) between 30-44 mL/min/1.73 square meter and albuminuria creatinine ratio less than 30 mg/g Barretts esophagus Osteoarthritis Mass of hand Renal stones HTN (hypertension) Surgical History History of esophagogastroduodenoscopy (EGD) History of tumor H/O excision of ganglion cyst H/O cystoscopy Hx of tonsillectomy Family History Mother Breast cancer Arthritis Father No problems noted. Social History Housing: Apartment Alcohol intake: never Patient Tobacco Use Status: Current everyday Tobacco user Tobacco use type: Cigarette Cigarettes Per Day: 10 Years Smoked: 40 e-Cigarette/Vaping Use: Never Used Second Hand Smoke Exposure: No Advance Directives Date on File: 01/28/23 Current occupational status: retired Cognitive needs: No Hearing needs: No Vision needs: No Review of Systems Const Denies headache(s) Eyes Denies blurry vision ENT Denies headache(s) Musc Reports deformity, Reports arthralgias, Reports limited range of motion and Reports stiffness Neuro Denies headache(s) Physical Exam Vital Signs: Last Vital Signs Pulse 53 02/07/23 11:46 BP 118/74 02/07/23 11:46 Pulse Ox 98 02/07/23 11:46 Const General: alert, awake and tired appearing Limitations: other limitations (On the stretcher) HEENT Other: No temporal area tenderness bilaterally Head: Yes normocephalic and Yes atraumatic Resp Effort & Inspection: normal respiratory effort and able to speak in complete sentences Extrem Other: Extensive tophi noted on both elbows, wrists, hands, feet. But I do not appreciate any active synovitis today P osteoarthritic changes of both hands Significantly limited bilateral shoulder abduction and flexion. Worse on the left. There is past painful range of motion of the left shoulder. Flexion deformity of left hand. Week left foot dorsiflexion pain with any left lower extremity movement Assessment & Plan Assessment & Plan (1) Weakness of both arms: Code(s): R29.898 - Other symptoms and signs involving the musculoskeletal system Plan: This is a 72-year-old male who follows with Rheumatology for gout who presents for an urgent visit. He was referred by physiatry. Over the last year patient has had bilateral upper extremity weakness, multiple falls, left lower extremity pain and weakness.His ESR was found to be significantly elevated and there is a question of PMR Exam patient has bilateral limited upper extremity abduction and flexion, worse on the left. Pain with any range of motion of the left shoulder. Significant left lower extremity you weakness and pain with any range of motion of the left lower extremity. He has flexion deformity of his left hand and weak left foot dorsiflexion. PMR does not adequately explain his peripheral neurological symptoms. And generally symptoms are symmetric. In his case his symptoms are asymmetrical. I believe patient needs further neurology workup. He was referred to Neurology Will start prednisone 20 mg daily x5 days therapeutic trial. Advised patient and to call me next week and let me know whether he was better With regards to his gout he can continue with allopurinol 100 mg daily for now. Otherwise follow-up in 6 months for gout follow-up Plan I spent 30 minutes reviewing patient's chart, evaluating patient, placing orders, counseling patient and documenting in the chart Medications: New prednisone 20 mg PO DAILY 5 tabs 0RF Coding Level of Care Code Est Pt Level 4 (62286) Diagnoses Weakness of both arms R29.898
[2023-02-07 11:46] VITALS: BP 118/74; PULSE 53; O2SAT 98
== END 2023-02-07 12:13 | disposition home or self-care (01) ==
PROVIDERS: PCP Internal Medicine; Visit Provider Student in an Organized Health Care Education/Training Program
DX: R29.898 Other symptoms and signs involving the musculoskeletal system (principal)
CPT/HCPCS: 99214

== ENCOUNTER 2023-02-12 14:28 | Outpatient (AMB) | payer MEDICARE, SELFPAY ==
--- NOTE | 2023-02-12 14:35 | A.OFFVIS_ITS ---
Intake Intake Visit Reasons: INP-U/lower extremity weakness,No walk,falls-LVM Intake Note: Patient presents for lower extremity weakness. Patient states his arms and legs too, this is been going for 3 to 4 months. Allergies lisinopril Allergy (Intermediate, Verified 02/07/23 15:56) hyperkalemia / elevated creatinine Penicillins [PENICILLINS] Allergy (Intermediate, Verified 02/07/23 15:56) SWELLING colchicine Adverse Reaction (Intermediate, Verified 02/07/23 15:56) Diarrhea HPI HPI Comments History of Present Illness Details 72-year-old male patient presents with h is for evaluation of bilateral lower extremities weakness. Pt reports lower extremities weakness, started about 6 months ago, and now he can't walk. His legs strength and walking problem started after the fall, March 2022, and slowly progressed. 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 Pt had pain in left hip area, had MRI done of the left hip on 11/12 the which showed nonspecific lesions on the bony pelvis cannot rule out malignancy. He was recently diagnosed in the emergency department with polymyalgia rheumatica. Pt also hs hx of chronic arthritis of in his neck. Has hx of DVT and he is on wafarin. Pt was referred to spine clinic and have an appointment next week. MRI of lumbar, and hip, EMG ordered and the result is pending. Pt's reports patient is very anxious, yelling to his and can't sleep at night. FOR[facility] Medical History (Updated 02/15/23 @ 13:23 by CHAGO Plata) Degenerative joint disease (DJD) of hip Annual physical exam Skin cancer Gout Tobacco abuse GERD (gastroesophageal reflux disease) Anxiety Anticardiolipin antibody positive Cholelithiasis Chronic kidney disease (CKD) stage G3b/A1, moderately decreased glomerular filtration rate (GFR) between 30-44 mL/min/1.73 square meter and albuminuria creatinine ratio less than 30 mg/g Barretts esophagus Osteoarthritis Mass of hand Renal stones HTN (hypertension) Surgical History History of esophagogastroduodenoscopy (EGD) History of tumor H/O excision of ganglion cyst H/O cystoscopy Hx of tonsillectomy Family History Mother Breast cancer Arthritis Father No problems noted. Social History Housing: Apartment Alcohol intake: never Patient Tobacco Use Status: Current everyday Tobacco user Tobacco use type: Cigarette Cigarettes Per Day: 10 Years Smoked: 40 e-Cigarette/Vaping Use: Never Used Second Hand Smoke Exposure: No Advance Directives Date on File: 01/28/23 Current occupational status: retired Cognitive needs: No Hearing needs: No Vision needs: No Review of Systems Const All systems reviewed & are unremarkable except as noted in HPI and below Physical Exam Const Other: Pt lays in the stretcher. Bilateral legs strength weak but able to lift legs against the pressure. General: anxious Orientation/consciousness: patient oriented x3 Neck Neck: Yes supple Resp Effort & Inspection: normal respiratory effort and able to speak in complete sentences Neuro General: patient oriented x3 and Unable to assess gait Gait exam (Neuro): Unable to assess gait Deep tendon reflexes (DTR's): Right patellar reflex intensity grade: 2+ and Left patellar reflex intensity grade: 2+ Psych Speech and movement: Clear speech present Affect: Anxious affect present Attitude: Other attitude/behavior findings present (Psych) (angry. ) Assessment & Plan Assessment & Plan (1) Weakness of both legs: Code(s): R29.898 - Other symptoms and signs involving the musculoskeletal system (2) Cervical spinal stenosis: Code(s): M48.02 - Spinal stenosis, cervical region (3) Degenerative joint disease (DJD) of hip: Code(s): M16.9 - Osteoarthritis of hip, unspecified Qualifiers: Laterality: left Osteoarthritis type: primary Qualified Code(s): M16.12 - Unilateral primary osteoarthritis, left hip (4) Cervical spinal cord compression: Code(s): G95.20 - Unspecified cord compression (5) Unsteady gait: Code(s): R26.81 - Unsteadiness on feet Plan Follow up with Spinal Clinic. Will review the MRI report. Pt's bilateral legs strength +4, inability walking can also be related to ch ronic arthritis and pain. Advised to try mirtazapine 15 mg qHS for anxiety and help him sleep. Medications: New mirtazapine 15 mg PO BEDTIME 30 tabs 3RF Coding Level of Care Code New Pt Level 4 (69543) Diagnoses Weakness of both legs R29.898 Cervical spinal stenosis M48.02 Primary osteoarthritis of left hip M16.12 Laterality: left Osteoarthritis type: primary Cervical spinal cord compression G95.20 Unsteady gait R26.81
== END 2023-02-12 15:30 | disposition home or self-care (01) ==
PROVIDERS: PCP Internal Medicine; Visit Provider Nurse Practitioner Family
DX: R29.898 Other symptoms and signs involving the musculoskeletal system (principal); M48.02 Spinal stenosis, cervical region; M16.12 Unilateral primary osteoarthritis, left hip; G95.20 Unspecified cord compression; R26.81 Unsteadiness on feet
CPT/HCPCS: 99204; 99214

== ENCOUNTER → 2023-02-12 14:28 | Outpatient (BNVA) | payer MEDICARE, SELFPAY | PROVIDERS: PCP Internal Medicine; Visit Provider Nurse Practitioner Family | DX: M16.12 Unilateral primary osteoarthritis, left hip (principal); R26.81 Unsteadiness on feet; M48.02 Spinal stenosis, cervical region; R29.898 Other symptoms and signs involving the musculoskeletal system; G95.20 Unspecified cord compression | CPT/HCPCS: 99202 ==

== ENCOUNTER 2023-02-15 11:28 | Outpatient (AMB) | payer MEDICARE, SELFPAY ==
--- NOTE | 2023-02-15 11:34 | HO.SPINEOV ---
Intake Intake Visit Reasons: cervical stenosis Intake Note: Mr. Bowen is here today c/o neck pain. MRI done @ [facility] [place]. 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 Nhan is a pleasant 72-year-old male who comes in today with a chief complaint of ascending weakness that began roughly 6 months ago. He reports that over the course of the last few weeks it has become progressively worse, now causing him to be unable to ambulate on his own. He states that prior to completely giving up on ambulation he was falling on a regular basis and felt as though he was not safe to walk on his own two feet. He reports no known inciting incident feels like it came on insidiously. He states that at first he began to feel as though his legs were weak and he was unable to use his left leg more so than the right. He also endorsed hip pain at this time and states that gradually began to involve his arms as well. He is now to the point where his bilateral arms barely function, and he has very limited ability to move against gravity. He reports no illnesses/sicknesses that he knows of prior to symptom onset. He does report that pain intermittently accompanies his weakness in his bilateral upper and lower extremities, but importantly reports no numbness/tingling/burning sensations. He does endorse a pertinent medical history of a unspecified benign his lumbar spine tumor which was resected/radiated 40 years ago. PMH: Osteoarthritis, peripheral vascular disease, gout, tobacco use, GERD, chronic kidney disease, Lee's esophagus, hypertension, anticoagulation use due to DVT HX, polymyalgia rheumatica. Social hx: Patient is a former smoker, reports no substance use. Medications: Warfarin, sodium bicarbonate, prednisone, omeprazole, mirtazapine, ferrous sulfate, diltiazem, allopurinol. Allergies: Lisinopril, penicillins, colchicine. Physical exam: On exam Nhan has diffuse weakness, worse in his upper extremities than lower extremities. 2/5 strength noted in RUE and 1/5 strength noted in LUE. Reflexes are 2+ and intact in bilateral UE&LE. No sensational changes. Significant muscle wasting noted in bilateral upper extremities, including significant muscle wasting and atrophy of the radial fossa. (-) clonus, (-) Babinski's, (-) Mcarthur's. Imaging review: [id number] central canal stenosis of the cervical spine noted to be worse between C3-C6. No significant central cord impingement. No cord signal change. Impression: Nhan is a 72-year-old male who comes in today with rapidly progressing ascending weakness of unknown etiology starting roughly 6 months ago. He is without numbness/tingling/burning, his reflexes remain intact, his cranial nerves are unaffected. He has chronic arthritis in the neck. No myelomalacia seen on imaging. Overall his imaging / presentation does not fit the picture for a progressive spinal cord impingement patient. Of note he was recently diagnosed in the emergency department with polymyalgia rheumatica secondary to his clinical picture and an ESR of 91. He is being followed by Rheumatology was recently referred to Neurology and is also being sent for an MRI of the lumbar spine with contrast in the coming weeks. Physiatry notes also state they are going to send him for an EMG. At this time I think it is best for him to continue to follow-up with his current referrals, to help pinpoint an etiology of his symptoms. I also strongly recommended close follow-up with his primary care physician who can help serve as a main point of contact, consolidation and explanation for the extensive referrals and consultations the patient is currently experiencing. I will review this case with Dr. Blanco when he returns to the office next week, and the patient was informed that I will call him and his after speaking with Dr. Blanco to provide them with further input. Thank you for allowing us to care for your patient. The total time spent with this visit with this patient was 65 minutes reviewing history, physical exam, MRI imaging review, and implementation of treatment plan or further diagnostic testing Bolivar Blanco MD,PhD [facility] Coding Level of Care Code New Pt Level 5 (22775) Diagnoses Cervical spinal stenosis M48.02 Weakness of both legs R29.898
== END 2023-02-15 12:45 | disposition home or self-care (01) ==
PROVIDERS: PCP Internal Medicine; Referring Provider Physical Medicine & Rehabilitation; Visit Provider Physician Assistant
DX: M48.02 Spinal stenosis, cervical region (principal); R29.898 Other symptoms and signs involving the musculoskeletal system
CPT/HCPCS: 99205

== ENCOUNTER → 2023-02-15 11:28 | Outpatient (BNVA) | payer MEDICARE, SELFPAY | PROVIDERS: PCP Internal Medicine; Visit Provider Physician Assistant | DX: M48.02 Spinal stenosis, cervical region (principal); R29.898 Other symptoms and signs involving the musculoskeletal system | CPT/HCPCS: 99202 ==

== ENCOUNTER → 2023-03-08 06:19 | Outpatient (BNV) | payer MEDICARE, SELFPAY | PROVIDERS: Emergency Provider Emergency Medicine Emergency Medical Services; PCP Internal Medicine; Visit Provider Internal Medicine Cardiovascular Disease | DX: I49.3 Ventricular premature depolarization (principal); R07.9 Chest pain, unspecified | CPT/HCPCS: 93010 ==

== ENCOUNTER 2023-03-08 06:20 | Emergency (ER) | payer MEDICARE, SELFPAY ==
--- NOTE | ~2023-03-08 | XR_ITS ---
EXAMINATION: XR CHEST CLINICAL INFORMATION: Chest pain COMPARISON: Chest x-rays of 10/04/2022 TECHNIQUE: Frontal view of the chest was obtained. FINDINGS: Multiple cardiac leads and wires overlie the chest. Patient is mildly rotated to the left. Cardiomediastinal silhouette is stable and appears normal for given technique. Lungs are adequately symmetrically expanded. No focal consolidation, changes of congestion, significant pleural effusions or pneumothorax are seen. Degenerative/arthritic changes are noted at the bilateral shoulders. Visualized upper abdomen is unremarkable. XR/XR chest 1V IMPRESSION: No acute pulmonary process.
--- NOTE | 2023-03-08 06:19 | ECG_ITS ---
Test Reason : CHEST PAIN Blood Pressure : / mmHG Vent. Rate : 087 BPM Atrial Rate : 087 BPM P-R Int : 206 ms QRS Dur : 092 ms QT Int : 380 ms P-R-T Axes : 062 041 051 degrees QTc Int : 457 ms Poor data quality Sinus rhythm with occasional Premature ventricular complexes Otherwise normal ECG No previous ECGs available Referred By: Generic ED Physician Electronically Signed By:REBECA OWEN MD
[2023-03-08 06:32] VITALS: BMI 25.1
--- NOTE | 2023-03-08 06:47 | ED.CHESTPAIN ---
HPI - Chest Pain General Chief Complaint: Chest Pain Stated Complaint: cp Time Seen by Provider: 03/08/23 06:43 Source: family Mode of arrival: wheelchair Limitations: no limitations History of Present Illness HPI narrative: 72-year-old male history of DVT on Coumadin, polymyalgia rheumatica, anticardiolipin, CKD, Lee's esophagus, hypertension, lumbar spine cord tumor s/p surgical resection about 30 years ago presents to the emergency department with complaints of left-sided chest pain that started about 2 hours ago discharge, patient awoke with this pain from his sleep. Denies radiation of pain. Denies associated shortness of breath, pleurisy, you nausea, vomiting, abdominal pain, headache, vision changes, dizziness or weakness Patient also complaining of back pain, which he has been having for a long time localized to lower back. Clarifies chest pain doesnt radiate to back. No urinary or bowel incontinence or retention, saddle paresthesias, weakness. Related Data Home Medications Medication Instructions Recorded Confirmed ferrous sulfate 325 mg (65 mg 325 mg PO DAILY 03/22/20 02/07/23 iron) tablet (Feosol) omeprazole 20 mg capsule,delayed 20 mg PO DAILY 01/10/22 02/07/23 release dextromethorphan-guaifenesin 10 1 tab-cap PO Q8H PRN 08/02/22 02/07/23 mg-200 mg capsule (Coricidin HBP congestion/cough Chest Congestion-Cough) warfarin 6 mg tablet See Protocol PO DAILY 01/26/23 02/07/23 Previous Rx's Medication Instructions Recorded toilet seat #1 ea 09/27/22 sodium bicarbonate 650 mg tablet 650 mg PO BID #60 tabs 10/04/22 allopurinol 100 mg tablet 100 mg PO DAILY #90 tabs 12/28/22 diltiazem HCl 240 mg 240 mg PO DAILY #90 caps 01/11/23 capsule,extended release 24 hr wheelchair #1 ea 02/06/23 prednisone 20 mg tablet 20 mg PO DAILY #5 tabs 02/07/23 mirtazapine 15 mg tablet 15 mg PO BEDTIME #30 tabs 02/12/23 PROTHROMBIN TIME MONITOR #1 ea 02/13/23 apixaban 5 mg tablet (Eliquis) 5 mg PO BID #60 tabs 02/19/23 Allergies Allergy/AdvReac Type Severity Reaction Status Date / Time lisinopril Allergy Intermediate hyperkalemia Verified 02/07/23 15:56 / elevated creatinine Penicillins [PENICILLINS] Allergy Intermediate SWELLING Verified 02/07/23 15:56 colchicine AdvReac Intermediate Diarrhea Verified 02/07/23 15:56 Review of Systems Review of Systems: Constitutional : No Weight loss, No Fever, No Chills, No Fatigue, No Malaise ENT/Mouth : No sore throat, No Rhinorrhea Eyes: No Eye Pain, No Swelling, No Redness Cardiovascular : + Chest Pain, No SOB, No Dyspnea on Exertion, No Orthopnea, No Edema, No Palpitations Respiratory : No Cough, No Sputum, No Wheezing Gastrointestinal : No Nausea, No Vomiting, No Diarrhea, No Constipation, No abdominal Pain, No Hematochezia, No Melena Genitourinary : No Dysuria, No Urinary Frequency, No Hematuria, Musculoskeletal : No joint pain, No Myalgias, No Joint Swelling Skin : No Skin Lesions, No rash Neuro : No Weakness, No Numbness, No Dizziness, No Headache Psych : No Anxiety/Panic, No Depression All other systems reviewed and are negative Yes all other systems are reviewed and are negative [facility] Past Medical History Attestation statement: The following information was validated with the patient. Source: old records reviewed and nursing notes reviewed Medical History Degenerative joint disease (DJD) of hip Annual physical exam Skin cancer Gout Tobacco abuse GERD (gastroesophageal reflux disease) Anxiety Anticardiolipin antibody positive Cholelithiasis Chronic kidney disease (CKD) stage G3b/A1, moderately decreased glomerular filtration rate (GFR) between 30-44 mL/min/1.73 square meter and albuminuria creatinine ratio less than 30 mg/g Barretts esophagus Osteoarthritis Mass of hand Renal stones HTN (hypertension) Surgical History History of esophagogastroduodenoscopy (EGD) History of tumor H/O excision of ganglion cyst H/O cystoscopy Hx of tonsillectomy Family History Family History Mother Breast cancer Arthritis Father No problems noted. Social History Social History Housing: Apartment Alcohol intake: never Patient Tobacco Use Status: Current everyday Tobacco user Tobacco use type: Cigarette Cigarettes Per Day: 10 Years Smoked: 40 e-Cigarette/Vaping Use: Never Used Second Hand Smoke Exposure: No Advance Directives: Yes Advance Directives on File: Yes Advance Directives Date on File: 01/28/23 Current occupational status: retired Cognitive needs: No Hearing needs: No Vision needs: No Physical Exam Vital Signs: Vital Signs: Last Vital Signs Temp 98.5 F 03/08/23 07:29 Pulse 95 03/08/23 13:07 Resp 18 03/08/23 07:29 BP 152/81 H 03/08/23 13:07 Pulse Ox 98 03/08/23 13:07 O2 Del Method Room Air 03/08/23 07:29 BMI result Body Mass Index 25.1 vss Appearance: Alert.? Oriented X3.? + unkempt Head: Normocephalic, atraumatic, no step-offs or deformities Eyes: Pupils equal, round and reactive to light.? ENT: Pharynx normal.? Neck: Normal inspection.? Neck supple.? CVS: Normal heart rate and rhythm.? Pulses normal.? Respiratory: No respiratory distress.? Breath sounds normal.? Abdomen: Soft and nontender.? Skin: Skin warm and dry.? Normal skin color.? Normal skin turgor.? Extremities: No lower extremity edema.? No calf ttp. Global weakness. Back: No midline tenderness. Painful range of motion of back. Lumbar paraspinous tenderness bilaterally. Neuro: Oriented X 3.? No motor deficit.? No sensory deficit. CN 2-12 intact no saddle paresthesias. Course Reevaluation(s) Reevaluation #1: CBC with a normocytic anemia at baseline. No acute findings. Chemistry with a chronic kidney injury. Troponin negative x2, patient without chest pain at this time. EKG nonischemic i do not suspect acs . Chest x-ray no acute pulmonary process seen. I did speak to patient's is at the bedside and tells me she has been caring for patient as he is unable to ambulate this has been going on for while. Patient reports severe back pain at all times, no saddle paresthesias, sensory deficits, urinary/bowel incontinence/retention, no signs of cord compression, cauda equina, epidural abscess. No falls or trauma. No indication for imaging at this time. Patient did have an MRI done recently. She is requesting resources at home. At this time patient to be into observation to allow more time to be evaluated by physical therapy and case management. At time observation started patient common cooperative no acute distress will continue to monitor Time: 13:32 Medications Administered Discontinued Medications Generic Name Dose Route Start Last Admin Trade Name Freq PRN Reason Stop Dose Admin Morphine Sulfate 4 mg 03/08/23 08:19 03/08/23 08:43 Morphine Sulfate 4 Mg/Ml Cartridge IVPUSH 03/08/23 08:20 4 mg ONCE ONE Administration Protocol Medical Decision Making Medical Decision Making [facility] Narrative: 0650 72 year old male presents w/ cp x 2 hours localized to the left side of chest PE benign Concerns for ACS versus unstable angina versus noncardiac related chest pain. Unlikely pulmonary embolism as patient is anticoagulated. Unlikely dissection history and physical exam not typical of this, patient also normotensive uncomfortable appearing. Unlikely pneumonia or acute respiratory distress Plan labs Differential Diagnosis Differential Diagnoses: The differential diagnosis associated with the presentation includes Concerns for ACS versus unstable angina versus noncardiac related chest pain. Unlikely pulmonary embolism as patient is anticoagulated. Unlikely dissection history and physical exam not typical of this, patient also normotensive uncomfortable appearing. Unlikely pneumonia or acute respiratory distress Admission/Observation Consideration of admission/observation: Escalation of care including admission/observation considered Lab Data 03/08/23 06:57 03/08/23 06:57 Labs: Lab Results 03/08/23 03/08/23 Range/Units 06:57 09:15 WBC 6.2 (4.8-10.8) X10*3/uL RBC 3.44 L (4.60-5.80) X10*6/uL Hgb 10.2 L (14.0-18.0) g/dl Hct 31.5 L (42.0-52.0) % MCV 91.6 (80.0-98.0) fL MCH 29.7 (27.0-33.0) pg MCHC 32.4 (31.0-36.0) g/dl RDW 16.8 H (11.0-16.0) % Plt Count 107 L D (160-400) X10*3/uL MPV 9.9 (9.4-12.4) fL Immature Gran % (Auto) 0.8 H (0.0-0.4) % Neut % (Auto) 71.6 (45-73) % Lymph % (Auto) 14.3 L (20-40) % [facility] [facility] % (Auto) 11.8 H (2-11) % Eos % (Auto) 1.0 (0-4) % Baso % (Auto) 0.5 (0-2) % Lymph # (Auto) 0.9 L (1.2-4.9) X10*3/uL [facility] # (Auto) 0.7 (0.1-1.2) X10*3/uL Eos # (Auto) 0.1 (0.0-0.4) X10*3/uL Baso # (Auto) 0.0 (0.0-0.2) X10*3/uL Abs Immat Gran (auto) 0.05 H (0.00-0.03) X10*3/uL Absolute Neuts (auto) 4.4 (2.0-8.3) x10*3/uL Absolute Nucleated RBC 0.000 (0.0-0.012) X10*3/uL Nucleated RBC % (auto) 0.0 (0.0-0.2) /100WBC Sodium 143 (135-145) mmol/L Potassium 4.8 (3.3-5.1) mmol/L Chloride 112 H (96-108) mmol/L Carbon Dioxide 20 L (22-29) mmol/L Anion Gap 16 (12-20) BUN 44 H (9-16) mg/dL Creatinine 1.49 H (0.5-1.4) mg/dL Estim Creat Clear Calc 43.3 Estimated GFR 46 Random Glucose 107 (60-115) mg/dL Calcium 9.7 (8.4-10.2) mg/dL Troponin I High Sens 28.9 D 28.8 (<3.5-35.0) ng/L Independent Interpretation I performed an independent interpretation of an: Plain X-Ray Radiology Impression Discussion of test interpretation with radiology: I have reviewed the radiologist's reading. Critical Care Time Critical Care Time Critical Care Time: No Discharge Plan Discharge Clinical Impression: Chest pain, Lower back pain Patient Disposition: Still a Patient Prescriptions: No Action (DME) toilet seat See Rx Instructions .Route .MEDSUPPLY Qty: 1 0RF Rx Instructions: As directed allopurinol 100 mg tablet 100 mg PO DAILY Qty: 90 1RF diltiazem HCl 240 mg capsule,extended release 24hr 240 mg PO DAILY Qty: 90 2RF (DME) wheelchair See Rx Instructions .Route .MEDSUPPLY Qty: 1 0RF Rx Instructions: As directed (DME) PROTHROMBIN TIME MONITOR See Rx Instructions .Route .MEDSUPPLY Qty: 1 0RF Rx Instructions: As directed Eliquis 5 mg tablet 5 mg PO BID Qty: 60 2RF sodium bicarbonate 650 mg tablet 650 mg PO BID Qty: 60 0RF warfarin 6 mg tablet See Protocol PO DAILY Protocol: Dose Management Condition: Saturday (Week One) Dose/Route: 3 mg Instruction: 0.5 x 6 mg tablets Condition: Saturday Dose/Route: 6 mg Instruction: 1 x 6 mg tablet Condition: Saturday Dose/Route: 3 mg Instruction: 0.5 x 6 mg tablets Condition: Saturday Dose/Route: 3 mg Instruction: 0.5 x 6 mg tablets Condition: Dose/Route: 3 mg Instruction: 0.5 x 6 mg tablets Condition: Saturday Dose/Route: 3 mg Instruction: 0.5 x 6 mg tablets Condition: Saturday Dose/Route: 3 mg Instruction: 0.5 x 6 mg tablets Condition: Saturday (Week Two) Dose/Route: 3 mg Instruction: 0.5 x 6 mg tablets Condition: Saturday Dose/Route: 6 mg Instruction: 1 x 6 mg tablet Condition: Saturday Dose/Route: 3 mg Instruction: 0.5 x 6 mg tablets Condition: Saturday Dose/Route: 3 mg Instruction: 0.5 x 6 mg tablets Condition: Dose/Route: 3 mg Instruction: 0.5 x 6 mg tablets Condition: Saturday Dose/Route: 3 mg Instruction: 0.5 x 6 mg tablets Condition: Saturday Dose/Route: 3 mg Instruction: 0.5 x 6 mg tablets Protocol Text: Adjustment Start Date: 02/07/23 INR Value: 3.0 INR Date: 02/07/23 Recheck Date: 02/21/23 Additional Instructions: RESUME WEEKLY GREENS AND PROTEIN ferrous sulfate [Feosol] 325 mg (65 mg iron) tablet 325 mg PO DAILY omeprazole 20 mg capsule,delayed release(DR/EC) 20 mg PO DAILY Coricidin HBP Chest Ezra-Cough 10-200 mg capsule 1 tab-cap PO Q8H PRN (Reason: congestion/cough) prednisone 20 mg tablet 20 mg PO DAILY Qty: 5 0RF mirtazapine 15 mg tablet 15 mg PO BEDTIME Qty: 30 3RF
[2023-03-08 07:01] LABS: MANUAL DIFF FLAG NO
[2023-03-08 07:03] LABS: Basophils Percent Auto 0.5 % (0-2); Eosinophils Absolute Auto 0.1 X10*3/uL (0.0-0.4); Hematocrit 31.5 % (42.0-52.0); Hemoglobin 10.2 g/dl (14.0-18.0); Imm Gran Abs Auto 0.05 X10*3/uL (0.00-0.03); Imm Gran Pct Auto 0.8 % (0.0-0.4); Lymphocytes Absolute Auto 0.9 X10*3/uL (1.2-4.9); Lymphocytes Percent Auto 14.3 % (20-40); Mean Corpuscular HGB Conc 32.4 g/dl (31.0-36.0); Mean Corpuscular Hemoglobin 29.7 pg (27.0-33.0); Mean Corpuscular Volume 91.6 fL (80.0-98.0); Mean Platelet Volume 9.9 fL (9.4-12.4); Monocytes Absolute Auto 0.7 X10*3/uL (0.1-1.2); Monocytes Percent Auto 11.8 % (2-11); Neutrophils Absolute Auto 4.4 x10*3/uL (2.0-8.3); Neutrophils Percent Auto 71.6 % (45-73); Platelet Count 107 X10*3/uL (160-400); Red Blood Count 3.44 X10*6/uL (4.60-5.80); Red Cell Distribution Width 16.8 % (11.0-16.0); White Blood Count 6.2 X10*3/uL (4.8-10.8)
[2023-03-08 07:17] LABS: Anion Gap 16 (12-20); Blood Urea Nitrogen 44 mg/dL (9-16); Calcium 9.7 mg/dL (8.4-10.2); Carbon Dioxide 20 mmol/L (22-29); Chloride 112 mmol/L (96-108); Creatinine Clr Calc Pharmacy 43.3; Estimated Glomerular Filt Rate 46; Glucose Random 107 mg/dL (60-115); Potassium 4.8 mmol/L (3.3-5.1); Sodium 143 mmol/L (135-145)
[2023-03-08 07:26] LABS: Troponin-I High Sensitivity 28.9 ng/L (<3.5-35.0)
--- OUTSIDE RECORDS SUMMARY | 2023-03-08 07:26 | XMS_ITS | Encounter Summary ---
Author Name Unknown Organization [facility] Address [address] [place] [address] Encounter Details Date Type Department Care Team Description 2023-02-19 Telephone [facility] [address] [place] [address] Paresh Pal The [facility] care team was unable to complete a Medication Reconciliation with the patient following discharge. ASSESSMENT No Information TREATMENT PLAN No Information
[2023-03-08 07:29] VITALS: BP 152/81; PULSE 95; RESP 18; TEMP 36.9; O2SAT 98
--- NOTE | 2023-03-08 07:51 | PC.NURSE ---
patient continues to cry out for help, requesting pain medication each time this RN in room. patient stating he has pain all on his left side, repositioned onto his right side with the use of pillows, upon entering the room patient was noted to have readjusted himself onto left side with pillows on the floor.
[2023-03-08] MEDS: Morphine Sulfate 4 MG/ML CARTRIDGE IVPUSH (08:43)
--- NOTE | 2023-03-08 08:49 | PC.NURSE ---
patient medicated per the MAR for pain, repositioned to opposite side in bed for comfort with pillows behind him. call raza within reach and at bedside
[2023-03-08 09:41] LABS: Troponin-I High Sensitivity 28.8 ng/L (<3.5-35.0)
--- NOTE | 2023-03-08 12:46 | PC.NURSE ---
patient to become pt/cm at this time, requesting more pain medications.
[2023-03-08 13:07] VITALS: BP 152/81; PULSE 95; O2SAT 98
[2023-03-08] MEDS: Morphine Sulfate Immed Release 15 MG TABLET PO (15:36)
[2023-03-08] MEDS: Lidocaine 4 % Patch ADH..PATCH 2 PATCH TRANSDERMA (15:36)
[2023-03-08 15:45] VITALS: BP 140/74; PULSE 86; RESP 18; O2SAT 98
--- NOTE | 2023-03-08 15:55 | PC.NURSE ---
patient medicated per the MAR for pain, repositioned for comfort. aware of awaiting case management and physical therapy consult
[2023-03-08 19:27] VITALS: BP 145/80; PULSE 80; RESP 20; TEMP 37; O2SAT 93
[2023-03-08] MEDS: traMADoL HCL 50 MG TABLET PO (20:05)
[2023-03-09 02:15] VITALS: BP 128/75; PULSE 78; RESP 16; TEMP 37.2; O2SAT 94
--- NOTE | 2023-03-09 02:33 | MHC.EDTECH ---
Patient just came to overflow from the main emergency department ,pt was moved into hospital bed ,food and fluids offer ,but Patient said he was figueroa ,Call raza in Place .
[2023-03-09 06:07] VITALS: BP 151/80; PULSE 78; RESP 14; TEMP 36.8; O2SAT 95
--- NOTE | 2023-03-09 08:47 | MHC.EDTECH ---
gave patient his breakfast. patient stated that he was not hungry and only asked for water at that time.
[2023-03-09] MEDS: Ferrous Sulfate 324 MG TABLET.DR PO (10:07)
[2023-03-09] MEDS: dilTIAZem HCL CD 240 MG CAP.ER.DEG PO (10:07)
[2023-03-09] MEDS: predniSONE 20 MG TABLET PO (10:08)
[2023-03-09] MEDS: Apixaban 5 MG TABLET PO (10:08)
[2023-03-09] MEDS: Omeprazole 20 MG CAPSULE.DR PO (10:08)
[2023-03-09] MEDS: Sodium Bicarbonate 650 MG TABLET PO (10:08)
[2023-03-09] MEDS: allopurinoL 100 MG TABLET PO (10:09)
--- NOTE | 2023-03-09 11:50 | PC.NURSE ---
resting calmly. no respiratory distress. case worker spoke w family multiple times re: d/c plans later today.
[2023-03-09 12:00] VITALS: RESP 16
--- NOTE | 2023-03-09 12:33 | PC.NURSE ---
denies pain. no distress. pt declined a turn/reposition- resting in bed. lunch given. drank po fluids. pt declined food.
--- NOTE | 2023-03-09 12:53 | PC.NURSE ---
pt assisted with urinal and water pitcher per request. pt's is at his bedside.
--- NOTE | 2023-03-09 13:38 | PC.NURSE ---
noted dry blood on lips- pt stating he was biting lips- pt confirmed. no overt bleeding. declined mouth wash/toothpaste/rinse. resting. no pain
--- NOTE | 2023-03-09 14:30 | MHC.CM.PN ---
DP: CM MET WITH PT/ AT BEDSIDE. AND PT WISH TO GO HOME WITH ADDED SERVICES. REFERRAL MADE TO [facility] AND [facility] FOR [facility]. RN MADE AWARE. PROVIDER UPDATED. REQUESTS A BLS TRANSPORT AT 5:30 PM SO SHE HAS TIME TO PREPARE FOR PT COMING HOME. BLS TRANSPORT BOOKED VIA [facility].
--- NOTE | 2023-03-09 17:49 | PC.NURSE ---
pt refused supper, stated I'm not hungry
== END 2023-03-09 17:45 | disposition home or self-care (01) ==
PROVIDERS: Physician Assistant; Emergency Provider Emergency Medicine Emergency Medical Services; PCP Internal Medicine
DX: R07.89 Other chest pain (principal); M54.50 Low back pain, unspecified; R26.2 Difficulty in walking, not elsewhere classified; Z86.718 Personal history of other venous thrombosis and embolism; Z79.01 Long term (current) use of anticoagulants; Z79.899 Other long term (current) drug therapy
CPT/HCPCS: 36415; 71045; 80048; 84484; 85025; 93005; 96374; 97162; 99285; J2270